=== PATIENT | male | born 1935 | race Caucasian/White ===

== ENCOUNTER 2016-04-21 10:35 | Emergency (ER) | payer MEDICARE, OTHER ==
[~2016-04-21 10:35] MED LIST: Adenosine 6 MG/2 ML SDV IVPUSH ONE
[2016-04-21] MEDS ORDERED: Diltiazem 25 MG/5 ML SDV ONE (10:42)
[2016-04-21] MEDS ORDERED: Adenosine 12 MG/4 ML SDV ONE (10:42)
[2016-04-21] MEDS ORDERED: Adenosine 12 MG/4 ML SDV IVPUSH ONE (10:45)
[2016-04-21] MEDS ORDERED: Diltiazem 25 MG/5 ML SDV IVPUSH ONE (10:45)
[2016-04-21] MEDS ORDERED: Sodium Chloride 0.9% 200 ML IV ONE (10:45)
[2016-04-21] MEDS ORDERED: Sodium Chloride 0.9% 10 ML Syringe FLUSH PRN (10:59)
[2016-04-21] MEDS ORDERED: Diltiazem 100 MG AdvVial ONE (11:00)
[2016-04-21] MEDS ORDERED: Diltiazem 100 MG in Sodium Chloride 0.9% 100 ML IV SCH (11:00)
[2016-04-21] MEDS ORDERED: Sodium Chloride 0.9% 100 ML ONE (11:01)
--- NOTE | 2016-04-21 11:11 | EDM.PDOC ---
ED HISTORY OF PRESENT ILLNESS - General Chief Complaint: Cardiovascular Problem Stated Complaint: CHEST PAIN/SOB Time Seen by Provider: 04/21/16 12:26 Source of Information: Reports: Patient, Family, RN History Limitations: Reports: No limitations - History of Present Illness INITIAL COMMENTS - FREE TEXT/NARRATIVE: Patient is a 80-year-old male with a history of coronary disease, KS, stent placement in 2014 unknown coronary culprit vessel. Additional hx: CKD, HTn, prostate CA, and CVA. He presents today complaining of palpitations and a fast heart rate. States it started this morning suddenly while walking down the stairs to get the paper. States he developed chest discomfort that radiated into his jaw with generalized malaise. States he took a nitro and asa with relief of symptoms. Denies any dizziness, lightheadedness, nausea/vomiting, or diaphoresis. States has shortness of breath with exertion. He has had chest pain in the past brought on by exertion relieved with rest. Denies ever taking nitro for the discomfort. Otherwise denies any changes to his medications, has not been recently sick, and has taken all his home a.m medications as prescribed this morning. He takes Metoprolol 12.5mg, plavix 75mg, protonix 40mg , tamsulosin 0.4mg, simvastatin 40 mg, ASA 81mg, and nitrostat 0.4mg. Timing/Duration: Reports: Constant Severity: mild Location, General: Reports: chest Quality: Reports: Other (palpitations only) Improves with: Reports: None Worsens with: Reports: None Context, General: Reports: Other (none stated) Associated Symptoms (General): Reports: shortness of breath. 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 (see below) (none stated) - Related Data Allergies/ADRs: Allergies Allergy/AdvReac Type Severity Reaction Status Date / Time No Known Allergies Allergy Verified 09/23/14 10:54 Past Medical History - Past Surgical History Other Cardiovascular Surgeries/Procedures: Stent Placement Social & Family History - Tobacco Use Smoking Status *Q: Former Smoker Years of Tobacco use: 32 - Recreational Drug Use Recreational Drug Use: No ED ROS GENERAL - Review of Systems Review Of Systems: See Below Constitutional: Reports: no symptoms Respiratory: Denies: shortness of breath, cough, sputum Cardiovascular: Reports: Dyspnea on exertion, Palpitations. Denies: Chest pain , Blood pressure problem, Edema, Lightheadedness, Orthopnea, Syncope GI/Abdominal: Reports: No symptoms Musculoskeletal: Reports: no symptoms Neurological: Reports: no symptoms ED EXAM, GENERAL - Physical Exam Exam: See Below Exam Limited By: No limitations General Appearance: alert, WD/WN, no apparent distress Ears: hearing grossly normal Nose: normal inspection Throat/Mouth: Normal inspection, Normal oropharynx, Normal voice, No airway compromise Head: atraumatic, normocephalic Neck: normal inspection, supple, non-tender, full range of motion Respiratory/Chest: no respiratory distress, lungs clear, normal breath sounds Cardiovascular: normal peripheral pulses, no edema, tachycardia. No: systolic murmur Peripheral Pulses: 2+: radial (R) GI/Abdominal: normal bowel sounds, soft, non tender Extremities: normal inspection, normal range of motion, non-tender, no pedal edema Neurological: alert, oriented, CN II-XII intact, normal cognition, no motor/ sensory deficits Psychiatric: normal affect, normal mood Skin Exam: Warm, Dry, Intact, Normal color Course - Vital Signs Last Recorded V/S: Last Vital Signs Temp 98.0 F 04/21/16 12:45 Pulse 71 04/21/16 12:45 Resp 18 04/21/16 12:45 BP 125/91 H 04/21/16 12:45 Pulse Ox 98 04/21/16 12:45 - Orders/Labs/Meds Orders: Active Orders 24 hr Category Date Time Status EKG 12 Lead [EKG Documentation Completion] [RC] STAT Care 04/21/16 10:47 Active EKG 12 Lead [EKG Documentation Completion] [RC] STAT Care 04/21/16 10:51 Active Oxygen Therapy, ED [RC] ASDIRECTED Care 04/21/16 10:59 Active Peripheral IV Care [RC] . DIRECTED Care 04/21/16 11:00 Active Peripheral IV Insertion Adult [OM.PC] Stat Oth 04/21/16 10:59 Ordered Labs: Laboratory Tests 04/21/16 04/21/16 04/21/16 Range/Units 10:46 10:46 10:46 WBC 7.91 (4.23-9.07) K/mm3 RBC 5.09 (4.63-6.08) M/mm3 Hgb 15.4 (13.7-17.5) gm/L Hct 45.8 (40.1-51.0) % MCV 90.0 (79.0-92.2) fl MCH 30.3 (25.7-32.2) pg MCHC 33.6 (32.2-35.5) g/dl RDW Std Deviation 42.1 (35.1-43.9) fL Plt Count 190 (163-337) K/mm3 MPV 9.4 (9.4-12.3) fl Neut % (Auto) 58.9 (34.0-67.9) % Lymph % (Auto) 30.0 (21.8-53.1) % [place] % (Auto) 8.2 (5.3-12.2) % Eos % (Auto) 2.0 (0.8-7.0) Baso % (Auto) 0.8 (0.1-1.2) % Neut # 4.66 (1.78-5.38) K/mm3 Lymph # 2.37 (1.32-3.57) K/mm3 [place] # 0.65 (0.30-0.82) K/mm3 Eos # 0.16 (0.04-0.54) K/mm3 Baso # 0.06 (0.01-0.08) K/mm3 PT 10.0 (8.0-13.0) SECONDS INR 0.92 APTT (22-36) SECONDS Sodium 141 (136-145) mEq/L Potassium 4.1 (3.5-5.1) mEq/L Chloride 103 (98-107) mEq/L Carbon Dioxide 23 (21-32) mEq/L Anion Gap 19.1 H (5-15) BUN 27 H (7-18) mg/dL Creatinine 1.9 H (0.7-1.3) mg/dL Est Cr Clr Drug Dosing TNP Estimated GFR (MDRD) 34 (>60) mL/min BUN/Creatinine Ratio 14.2 (14-18) Glucose 132 H (83-115) mg/dL Calcium 9.4 (8.5-10.1) mg/dL Total Bilirubin 0.6 (0.2-1.0) mg/dL AST 22 (15-37) U/L ALT 21 (16-63) U/L Alkaline Phosphatase 124 H (46-116) U/L Troponin I < 0.017 (0.00-0.056) ng/mL C-Reactive Protein < 0.2 (<1.0) mg/dL Total Protein 7.9 (6.4-8.2) g/dl Albumin 3.7 (3.4-5.0) g/dl Globulin 4.2 gm/dL Albumin/Globulin Ratio 0.9 L (1-2) TSH 3rd Generation 2.244 (0.358-3.74) uIU/mL 04/21/16 Range/Units 10:46 WBC (4.23-9.07) K/mm3 RBC (4.63-6.08) M/mm3 Hgb (13.7-17.5) gm/L Hct (40.1-51.0) % MCV (79.0-92.2) fl MCH (25.7-32.2) pg MCHC (32.2-35.5) g/dl RDW Std Deviation (35.1-43.9) fL Plt Count (163-337) K/mm3 MPV (9.4-12.3) fl Neut % (Auto) (34.0-67.9) % Lymph % (Auto) (21.8-53.1) % [place] % (Auto) (5.3-12.2) % Eos % (Auto) (0.8-7.0) Baso % (Auto) (0.1-1.2) % Neut # (1.78-5.38) K/mm3 Lymph # (1.32-3.57) K/mm3 [place] # (0.30-0.82) K/mm3 Eos # (0.04-0.54) K/mm3 Baso # (0.01-0.08) K/mm3 PT (8.0-13.0) SECONDS INR APTT 25 (22-36) SECONDS Sodium (136-145) mEq/L Potassium (3.5-5.1) mEq/L Chloride (98-107) mEq/L Carbon Dioxide (21-32) mEq/L Anion Gap (5-15) BUN (7-18) mg/dL Creatinine (0.7-1.3) mg/dL Est Cr Clr Drug Dosing Estimated GFR (MDRD) (>60) mL/min BUN/Creatinine Ratio (14-18) Glucose (83-115) mg/dL Calcium (8.5-10.1) mg/dL Total Bilirubin (0.2-1.0) mg/dL AST (15-37) U/L ALT (16-63) U/L Alkaline Phosphatase (46-116) U/L Troponin I (0.00-0.056) ng/mL C-Reactive Protein (<1.0) mg/dL Total Protein (6.4-8.2) g/dl Albumin (3.4-5.0) g/dl Globulin gm/dL Albumin/Globulin Ratio (1-2) TSH 3rd Generation (0.358-3.74) uIU/mL Meds: Medications Discontinued Medications Generic Name Dose Route Start Last Admin Trade Name Freq PRN Reason Stop Dose Admin Adenosine Confirm 04/21/16 10:41 04/21/16 11:26 Adenocard Administered 04/21/16 10:42 Not Given Dose 6 mg .ROUTE .STK-MED ONE Adenosine Confirm 04/21/16 10:42 04/21/16 11:26 Adenocard Administered 04/21/16 10:43 Not Given Dose 12 mg .ROUTE .STK-MED ONE Adenosine 6 mg 04/21/16 10:25 04/21/16 10:47 Adenocard IVPUSH 04/21/16 10:26 6 mg NOW ONE Administration Adenosine 12 mg 04/21/16 10:45 04/21/16 10:49 Adenocard IVPUSH 04/21/16 10:46 12 mg NOW ONE Administration Aspirin 243 mg 04/21/16 11:18 04/21/16 11:27 Aspirin PO 04/21/16 11:19 Not Given ONETIME ONE Diltiazem HCl Confirm 04/21/16 10:42 04/21/16 11:45 Diltiazem Administered 04/21/16 10:43 Not Given Dose 25 mg .ROUTE .STK-MED ONE Diltiazem HCl Confirm 04/21/16 11:00 04/21/16 11:28 Cardizem Administered 04/21/16 11:01 Not Given Dose 100 mg .ROUTE .STK-MED ONE Diltiazem HCl 10 mg 04/21/16 10:45 04/21/16 10:55 Diltiazem IVPUSH 04/21/16 10:46 10 mg ONETIME ONE Administration Sodium Chloride Confirm 04/21/16 11:01 04/21/16 11:42 Normal Saline Administered 04/21/16 11:02 Not Given Dose 100 mls @ as directed .ROUTE .STK-MED ONE Diltiazem HCl 100 mg/ Sodium 100 mls @ 10 mls/hr 04/21/16 11:00 04/21/16 11: 07 Chloride IV 10 mg/hr TITRATE JERRY 10 mls/hr Protocol Administration 10 MG/HR Sodium Chloride 200 mls @ 999 mls/hr 04/21/16 10:45 04/21/16 10:47 Normal Saline IV 04/21/16 10:57 999 mls/hr ONETIME ONE Administration Sodium Chloride 10 ml 04/21/16 10:59 04/21/16 11:53 Saline Flush FLUSH 10 ml ASDIRECTED PRN Administration Keep Vein Open - Re-Assessments/Exams Free Text/Narrative Re-Assessment/Exam: On initial evaluation in the ED patients heart rate was 189, regular, appear to be SVT with normotensive blood pressures. He had no discomfort at this time. He was moved to the trauma room to which 12 lead was obtained revealing a supraventricular tachycardia at a rate of [address] changes noted. Vagal maneuvers were attempted with no change. Patient was administered 6 mg of adenosine IV push at 1047 with no change to his heart rhythm. 12 mg adenosine was pushed at 1049 which converted the patient into a sinus rhythm at a rate 87 with normotensive blood pressure. At 1048 and EKG was obtained revealing a sinus rhythm at a rate of 92 with left anterior fascicular block with no acute ST changes noted. This was compared to previous EKG obtained 09/23/2014 to which left anterior fascicular block was present as well. At 1057 heart rate increased to 180 and a Cardizem bolus of 10 mg was administered with heart rate decreasing in the 70s. This appeared to be sinus. He was started on Cardizem drip 10 mg/hr. Initial labs and studies include CBC, chem 14, PT/INR, PTT, troponin, and chest x-ray one view. Have also ordered an additional troponin to be obtained 2 hours from previous draw. 04/21/16 11:12 04/21/16 11:15 vital signs 129/65, heart rate 65 sinus with a few PVCs. Concerned the patient may be having a KS with history of chest discomfort and onset of SVT. Will order aspirin 243mg since patient has taken a baby aspirin this morning. Per nursing staff patient had taken 4 baby ASA priorto arrival. This was discontinued. labs reviewed: CBC no concerning finding. CR 1.9, he has history of CKD. Troponin WNL. CXR reviewed: mass noted to the right upper lobe. This was found on previous CXR 09/23/[address] of the chest. Ordered CT of the chest without contrast. 1140 Patients vitals are stable. HR sinus. He has no complaints at this time. 04/21/16 12:[address] Orellana hatchery attendant vice president of instruction at [facility] and she agrees the patient should have further cardiac workup. Transfer to vice president of instruction hospitalist Dr. Downing and discussed patient with him. He has accepted patient. Patient will be transported via ambulance to [facility]. Ambulance has been called. 04/21/[address] of the chest impression: Mass within the right upper lung suspicious for neoplasm. CT biopsy recommended. There is a significant interval change from prior chest x-ray as noted above. 2 nodules at the right chest. These are less specific for etiology for followup would be needed to determine stability. Difficult to exclude early metastases at this time. Mild prominent lymph nodes within the mediastinum possibly metastatic. Incidental findings as described above. Chest x-ray and CT of the chest films were push to [facility]. Results of x-ray and CT of the chest were also faxed to [facility] as well. Departure - Departure Time of Disposition: 12:14 Disposition: DC/Tfer to Acute Hospital 02 Reason for Transfer *Q: Other (Cardiac rule out) Condition: good Clinical Impression: SVT (supraventricular tachycardia), Chest pain in adult Referrals: Sathish Yeager MD [Primary Care Provider] - Forms: ED Department Discharge - My Orders Last 24 Hours: My Active Orders 04/21/16 10:59 Oxygen Therapy, ED [] ASDIRECTED Peripheral IV Insertion Adult [OM.PC] Stat 04/21/16 11:00 Peripheral IV Care [RC] . DIRECTED - Assessment/Plan Last 24 Hours: My Active Orders 04/21/16 10:59 Oxygen Therapy, ED [RC] ASDIRECTED Peripheral IV Insertion Adult [OM.PC] Stat 04/21/16 11:00 Peripheral IV Care [RC] . DIRECTED
[2016-04-21] MEDS ORDERED: Aspirin 81 MG Tab.Chew PO ONE (11:18)
[2016-04-21] MEDS: Adenosine 6 MG/2 ML SDV ONE ×2 (11:23→11:26)
[2016-04-21 13:12] VITALS: BP 125/91
--- NOTE | 2016-04-21 13:29 | CT ---
Chest: Multiple axial sections through the chest were obtained. Intravenous contrast was not utilized. Comparison: Previous chest x-ray of 04/21/16 and chest x-ray of 09/23/14. Findings: Parenchymal mass noted within the right upper lung. This measures approximately 4.0 x 4.2 cm. This correlates to the parenchymal density within the upper right lung on recent study. This has significantly change from chest x-ray of 09/23/14 at which [address] chest CT was requested, was it performed as I have no record of CT study performed at this institution? Slightly lobulated nodule is noted within the left lung base measuring about 1.4 cm which is too small to see by chest x-ray. Second small nodule noted within the right middle lobe measuring about 2 mm. Lungs otherwise are clear without additional nodule being identified. Mediastinum shows mildly prominent lymph nodes. Largest lymph node within the pretracheal region is 2.1 cm. Several small lymph nodes are seen within the subcarinal region. Visualized upper abdominal structures has an unremarkable noncontrast CT appearance. Mild coronary artery calcification is seen. Bone window settings were reviewed which shows scattered degenerative change throughout the spine with disc space narrowing and scattered endplate osteophytes. Mild spondylolisthesis is seen within the lower cervical spine due to degenerative apophyseal change. Impression: 1. Mass within the right upper lung suspicious for neoplasm. CT biopsy recommended. This is a significant interval change from prior chest x-ray as noted above. 2. 2 nodules within the right chest. These are less specific for etiology but follow-up would be needed to determine stability. Difficult to exclude early metastatic disease at this time. 3. Mildly prominent lymph nodes within the mediastinum possibly metastatic. 4. Other incidental findings as described above. Diagnostic code #9
--- NOTE | 2016-04-21 13:29 | CR ---
Chest: Portable view of the chest was obtained. Comparison: Previous chest x-ray of 09/23/14. Findings: Parenchymal density noted within the right upper chest. This has a masslike appearance and correlates to what appears to be neoplastic abnormality on subsequent CT exam. This represents a significant interval change from previous chest x-ray. CT was recommended on prior report and was previous CT performed at a different institution as I have no record of this being performed at this institution? Lungs are otherwise clear. Nodules that were noted on subsequent chest CT are too small to be seen on current chest x-ray. Heart size is normal. Tortuous thoracic aorta is seen. Bony structures are grossly intact. Impression: 1. Right upper lobe parenchymal mass is a significant interval change from previous study. This has the appearance of neoplasm on subsequent chest CT. 2. 2 small nodules are noted on subsequent chest CT which are too small to see on chest x-ray. 3. Nothing acute is otherwise seen on portable chest x-ray. Diagnostic code #9
== END 2016-04-21 12:45 ==
LOC: JD.ED 10:35 → SUPCPDRO 10:35 → JD.ED 12:45
DX: I47.1 Supraventricular tachycardia (principal); R07.9 Chest pain, unspecified; I25.10 Atherosclerotic heart disease of native coronary artery without angina pectoris; Z95.5 Presence of coronary angioplasty implant and graft; I25.2 Old myocardial infarction; I12.9 Hypertensive chronic kidney disease with stage 1 through stage 4 chronic kidney disease, or unspecified chronic kidney disease; N18.9 Chronic kidney disease, unspecified; Z85.46 Personal history of malignant neoplasm of prostate; Z86.73 Personal history of transient ischemic attack (TIA), and cerebral infarction without residual deficits; Z79.899 Other long term (current) drug therapy; Z87.891 Personal history of nicotine dependence
CPT/HCPCS: 36415; 71010; 71250; 80053; 84443; 84484; 85025; 85610; 85730; 86140; 93005; 96360; 96365; 96366; 96375; 96376; 99285; A9270; J0153; J7030; J7040; J7050; 99284; J3490

== ENCOUNTER 2016-07-15 13:43 | Inpatient (IN) | payer MEDICARE, OTHER ==
[2016-07-15] MEDS ORDERED: Sodium Chloride 0.9% 10 ML Syringe FLUSH PRN (13:51)
[2016-07-15] MEDS ORDERED: Diltiazem 25 MG/5 ML SDV IVPUSH ONE (13:52)
[2016-07-15] MEDS ORDERED: Sodium Chloride 0.9% 1,000 ML IV ONE ×2 (13:56→14:56)
[2016-07-15] MEDS ORDERED: Diltiazem 125 MG in Sodium Chloride 0.9% 100 ML IV SCH (14:00)
[2016-07-15] MEDS ORDERED: Sodium Chloride 0.9% 1,000 ML IV SCH (14:00)
--- NOTE | 2016-07-15 14:15 | CT ---
Head CT Technique: Multiple axial sections through the brain were obtained. Intravenous contrast was not utilized. Comparison: No previous intracranial imaging is available. Findings: Ventricles along with basal cisterns and sulci over the convexities are moderately prominent. Very minimal diminished density is noted within the periventricular white matter compatible with small vessel ischemic demyelination change. No other abnormal parenchymal densities are seen. No evidence of intracranial hemorrhage. No midline shift or mass effect is seen. Mild atherosclerotic calcification is noted within the vertebral vessels and within the carotid siphon. Visualized sinuses are clear. No acute calvarial abnormality is seen. Impression: 1. Minimal senescent change as described above. 2. No acute intracranial abnormality is appreciated on noncontrast head CT study. Diagnostic code #2
--- NOTE | 2016-07-15 15:03 | EDM.PDOC ---
ED HPI GENERAL MEDICAL PROBLEM - General Chief Complaint: Neuro Symptoms/Deficits Stated Complaint: STROKE Time Seen by Provider: 07/15/16 13:51 Source of Information: Reports: Patient History Limitations: Reports: No Limitations - History of Present Illness INITIAL COMMENTS - FREE TEXT/NARRATIVE: The patient presents with a possible stroke. A stroke alert was called. He was last known well about 1300. He has a history of SVT, CT with stents, and he was recently diagnosed with cancer and he gets chemo and radiation. He had both last week. He felt good on Friday but 3 days ago he could not eat or drink. He had no apatite and he had nausea at times. Today he was lightheaded and dizzy. Any movement makes him feel like he wants to pass out. He feels like his heart is racing. He had SVT in April and he was diagnosed with cancer also. He has no chest pain but he is short of breath and he has some pain in his jaw. Onset: Gradual Duration: Day(s): Location: Reports: Other (Jaw) Quality: Reports: Pressure Severity: Moderate Improves with: Reports: None Worsens with: Reports: None Context: Reports: Activity Associated Symptoms: Reports: Nausea/Vomiting, Shortness of Breath. Denies: Chest Pain, Cough, Fever/Chills Neck Pain Score (Numeric/FACES): 5 - Related Data Allergies Allergy/AdvReac Type Severity Reaction Status Date / Time No Known Allergies Allergy Verified 07/15/16 14:12 Home Meds: Home Meds Aspirin 81 mg PO DAILY 05/31/16 [History] Clopidogrel [Plavix] 75 mg PO DAILY 05/31/16 [History] Codeine/Promethazine [Phenergan with Codeine] 05/31/16 [History] Diltiazem [Cardizem CD] 05/31/16 [History] Doxycycline [Vibramycin] 05/31/16 [History] Metoprolol Succinate 05/31/16 [History] Nitroglycerin [Nitrostat] 0.4 mg SL ASDIRECTED PRN 05/31/16 [History] Pantoprazole Sodium [Protonix] 40 mg PO 05/31/16 [History] Simvastatin [Zocor] 40 mg PO DAILY 05/31/16 [History] Tamsulosin [Flomax] 1 - 2 cap PO DAILY 05/31/16 [History] Past Medical History HEENT History: Reports: Cataract Cardiovascular History: Reports: CAD, High Cholesterol, CT, Stents Other Cardiovascular History: CT in 2015, arteriosclerotic heart disease Respiratory History: Reports: SOB, Other (See Below) Other Respiratory History: uppper lobe lung mass, bronchoscopy Gastrointestinal History: Reports: GERD Genitourinary History: Reports: Other (See Below) Other Genitourinary History: "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" NEGATIVE SPOTTER History: Reports: None Musculoskeletal History: Reports: None Neurological History: Reports: CVA Psychiatric History: Reports: None Endocrine/Metabolic History: Reports: None Hematologic History: Reports: None Immunologic History: Reports: None Oncologic (Cancer) History: Reports: Lung, Prostate Dermatologic History: Reports: None - Infectious Disease History Infectious Disease History: Reports: C-Difficile, Measles, Mumps - Past Surgical History HEENT Surgical History: Reports: Adenoidectomy, Cataract Surgery, Tonsillectomy Respiratory Surgical History: Reports: Other (See Below) Social & Family History - Tobacco Use Smoking Status *Q: Former Smoker Years of Tobacco use: 32 Used Tobacco, but Quit: Yes Month Tobacco Last Used: 15 yrs ago Second Hand Smoke Exposure: No - Caffeine Use Caffeine Use: Reports: None - Recreational Drug Use Recreational Drug Use: No ED ROS GENERAL - Review of Systems Review Of Systems: See Below Constitutional: Reports: No Symptoms HEENT: Reports: Other (Bilateral jaw pain) Respiratory: Reports: Shortness of Breath. Denies: Cough Cardiovascular: Reports: Palpitations. Denies: Chest Pain Endocrine: Reports: No Symptoms GI/Abdominal: Reports: Nausea. Denies: Abdominal Pain, Vomiting : Reports: No Symptoms Musculoskeletal: Reports: No Symptoms ED EXAM, NEURO - Physical Exam Exam: See Below Exam Limited By: No Limitations General Appearance: Alert, No Apparent Distress Ears: Normal External Exam Nose: Normal Inspection Throat/Mouth: Other (Dry mucus membranes) Head Exam: Atraumatic, Normocephalic Neck: Normal Inspection Respiratory/Chest: No Respiratory Distress, Lungs Clear, Normal Breath Sounds Cardiovascular: No Edema, Tachycardia, Irregularly Irregular GI/Abdominal: Soft, Non-Tender, No Organomegaly, No Mass Neurological: Alert, No Motor/Sensory Deficits, Oriented x 3 EKG INTERPRETATION EKG Date: 07/15/16 Time: 13:47 Rhythm: a-fib Rate (beats/min): 135 [place]: LAD-left axis deviation QRS: normal ST-T: normal QT: normal EKG Interpretation Comments: A-fib with RVR Course - Vital Signs Last Recorded V/S: Last Vital Signs Temp 97.4 F 07/15/16 13:54 Pulse 95 07/15/16 15:00 Resp 18 07/15/16 15:00 BP 106/70 07/15/16 15:00 Pulse Ox 96 07/15/16 15:00 - Orders/Labs/Meds Orders: Active Orders 24 hr Category Date Time Status Cardiac Monitoring [RC] . DIRECTED Care 07/15/16 13:51 Active EKG 12 Lead [EKG Documentation Completion] [RC] STAT Care 07/15/16 15:23 Active EKG Documentation Completion [RC] STAT Care 07/15/16 13:52 Active Oxygen Therapy [RC] PRN Care 07/15/16 13:51 Active Peripheral IV Care [RC] . DIRECTED Care 07/15/16 13:52 Active Chest 1V Frontal [CR] Stat Exams 07/15/16 13:52 Taken Diltiazem 125 mg Med 07/15/16 14:00 Active Sodium Chloride 0.9% [Normal Saline] 100 ml IV TITRATE Sodium Chloride 0.9% [Normal Saline] 1,000 ml Med 07/15/16 14:00 Active IV ASDIRECTED Sodium Chloride 0.9% [Normal Saline] 1,000 ml Med 07/15/16 14:56 Active IV ONETIME Sodium Chloride 0.9% [Saline Flush] Med 07/15/16 13:51 Active 10 ml FLUSH ASDIRECTED PRN Peripheral IV Insertion Adult [OM.PC] Stat Oth 07/15/16 13:51 Ordered Medication Orders Diltiazem HCl 125 mg/ Sodium (Chloride) 125 mls @ 10 mls/hr IV TITRATE JERRY; 10 MG/HR PRN Reason: Protocol Sodium Chloride (Normal Saline) 1,000 mls @ 125 mls/hr IV ASDIRECTED JERRY Sodium Chloride (Normal Saline) 1,000 mls @ 1,000 mls/hr IV ONETIME ONE Stop: 07/15/16 15:55 Sodium Chloride (Saline Flush) 10 ml FLUSH ASDIRECTED PRN PRN Reason: Keep Vein Open Last Admin: 07/15/16 14:23 Dose: 10 ml Labs: Laboratory Tests 07/15/16 07/15/16 07/15/16 Range/Units 13:53 13:53 13:53 WBC 3.16 L (4.23-9.07) K/mm3 RBC 4.03 L (4.63-6.08) M/mm3 Hgb 12.2 L (13.7-17.5) gm/L Hct 36.2 L (40.1-51.0) % MCV 89.8 (79.0-92.2) fl MCH 30.3 (25.7-32.2) pg MCHC 33.7 (32.2-35.5) g/dl RDW Std Deviation 47.2 H (35.1-43.9) fL Plt Count 101 L (163-337) K/mm3 MPV 9.4 (9.4-12.3) fl Neut % (Auto) 70.7 H (34.0-67.9) % Lymph % (Auto) 19.6 L (21.8-53.1) % [place] % (Auto) 7.6 (5.3-12.2) % Eos % (Auto) 0.6 L (0.8-7.0) Baso % (Auto) 0.6 (0.1-1.2) % Neut # (Auto) 2.23 (1.78-5.38) K/mm3 Lymph # (Auto) 0.62 L (1.32-3.57) K/mm3 [place] # (Auto) 0.24 L (0.30-0.82) K/mm3 Eos # (Auto) 0.02 L (0.04-0.54) K/mm3 Baso # (Auto) 0.02 (0.01-0.08) K/mm3 PT 11.0 (8.0-13.0) SECONDS INR 1.01 Sodium 137 (136-145) mEq/L Potassium 3.3 L (3.5-5.1) mEq/L Chloride 102 (98-107) mEq/L Carbon Dioxide 22 (21-32) mEq/L Anion Gap 16.3 H (5-15) BUN 41 H (7-18) mg/dL Creatinine 1.8 H (0.7-1.3) mg/dL Est Cr Clr Drug Dosing 31.67 mL/min Estimated GFR (MDRD) 36 (>60) mL/min BUN/Creatinine Ratio 22.8 H (14-18) Glucose 110 (83-115) mg/dL Calcium 8.3 L (8.5-10.1) mg/dL Total Bilirubin 0.9 (0.2-1.0) mg/dL AST 27 (15-37) U/L ALT 33 (16-63) U/L Alkaline Phosphatase 77 (46-116) U/L Troponin I 0.029 (0.00-0.056) ng/mL Total Protein 6.3 L (6.4-8.2) g/dl Albumin 2.8 L (3.4-5.0) g/dl Globulin 3.5 gm/dL Albumin/Globulin Ratio 0.8 L (1-2) Meds: Medications Generic Name Dose Route Start Last Admin Trade Name Jimq PRN Reason Stop Dose Admin Diltiazem HCl 125 mg/ Sodium 125 mls @ 10 mls/hr 07/15/16 14:00 Chloride IV TITRATE JERRY Protocol 10 MG/HR Sodium Chloride 1,000 mls @ 125 mls/hr 07/15/16 14:00 Normal Saline IV ASDIRECTED JERRY Sodium Chloride 1,000 mls @ 1,000 mls/hr 07/15/16 14:56 Normal Saline IV 07/15/16 15:55 ONETIME ONE Sodium Chloride 10 ml 07/15/16 13:51 07/15/16 14:23 Saline Flush FLUSH 10 ml ASDIRECTED PRN Administration Keep Vein Open Discontinued Medications Generic Name Dose Route Start Last Admin Trade Name Freq PRN Reason Stop Dose Admin Diltiazem HCl 10 mg 07/15/16 13:52 07/15/16 14:56 Diltiazem IVPUSH 07/15/16 13:53 Not Given ONETIME ONE Sodium Chloride 1,000 mls @ 1,000 mls/hr 07/15/16 13:56 07/15/16 14:23 Normal Saline IV 07/15/16 14:55 1,000 mls/hr ONETIME ONE Administration - Re-Assessments/Exams Free Text/Narrative Re-Assessment/Exam: 07/15/16 15:04 I ordered an IV NS 1L bolus, EKG, CXR, labs, cardizem bolus 10mg IV and cardizem drip at 10mg/hr. His EKG shows A-fib with RVR at 135. His CXR shows a mass in the right upper chest. His WBC is low at 3.16. His Hgb was a little low at 12.2. His K was low at 3.3. Platelets were low at 101. His anion gap was 16.3. His creatinine was elevated at 1.8. His troponin was negative. His heart rate will go up and his BP will go down in the 80s at times. The cardizem was held until he gets a bolus. He will convert to what seems to be a NSR at times and then he bursts back up. 07/15/16 15:[address] Orona and she agreed to the admission. I talked to the patient about his wishes if he wanted to be DNR/DNI. He wanted to be DNR/DNI. Departure - Departure Time of Disposition: 15:40 Disposition: Admitted As Inpatient 67 Condition: fair Clinical Impression: Dehydration Atrial fibrillation Qualifiers: Atrial fibrillation type: paroxysmal Qualified Code(s): I48.0 - Paroxysmal atrial fibrillation Difficulty swallowing Qualifiers: Dysphagia type: unspecified Qualified Code(s): R13.10 - Dysphagia, unspecified - Discharge Information Forms: ED Department Discharge - My Orders Last 24 Hours: My Active Orders 07/15/16 13:51 Cardiac Monitoring [RC] . DIRECTED Oxygen Therapy [RC] PRN Sodium Chloride 0.9% [Saline Flush] 10 ml FLUSH ASDIRECTED PRN Peripheral IV Insertion Adult [OM.PC] Stat 07/15/16 13:52 EKG Documentation Completion [RC] STAT Peripheral IV Care [RC] . DIRECTED Chest 1V Frontal [CR] Stat 07/15/16 14:00 Diltiazem 125 mg Sodium Chloride 0.9% [Normal Saline] 100 ml IV TITRATE Sodium Chloride 0.9% [Normal Saline] 1,000 ml IV ASDIRECTED 07/15/16 14:56 Sodium Chloride 0.9% [Normal Saline] 1,000 ml IV ONETIME 07/15/16 15:23 EKG 12 Lead [EKG Documentation Completion] [RC] STAT - Assessment/Plan Last 24 Hours: My Active Orders 07/15/16 13:51 Cardiac Monitoring [RC] . DIRECTED Oxygen Therapy [RC] PRN Sodium Chloride 0.9% [Saline Flush] 10 ml FLUSH ASDIRECTED PRN Peripheral IV Insertion Adult [OM.PC] Stat 07/15/16 13:52 EKG Documentation Completion [RC] STAT Peripheral IV Care [RC] . DIRECTED Chest 1V Frontal [CR] Stat 07/15/16 14:00 Diltiazem 125 mg Sodium Chloride 0.9% [Normal Saline] 100 ml IV TITRATE Sodium Chloride 0.9% [Normal Saline] 1,000 ml IV ASDIRECTED 07/15/16 14:56 Sodium Chloride 0.9% [Normal Saline] 1,000 ml IV ONETIME 07/15/16 15:23 EKG 12 Lead [EKG Documentation Completion] [RC] STAT
[2016-07-15] MEDS ORDERED: Nitroglycerin 0.4 MG Tab.SL SL PRN (17:28)
[2016-07-15] MEDS ORDERED: Apixaban 2.5 MG Tab PO ONE (17:32)
--- NOTE | 2016-07-15 17:50 | PCM.HP ---
H&P History of Present Illness - General Date of Service: 07/15/16 Admit Problem/Dx: Admission Diagnosis/Problem Admission Diagnosis/Problem Atrial fibrillation Source of Information: Patient, Family, Provider History Limitations: Reports: No Limitations - History of Present Illness Initial Comments - Free Text/Narative: 81 year old male with PMH of CVA, MA/CAD presented with A Fib with RVR. His chief complaint was a racing heart associated with jaw pain and SOB. He is s/p CTX/RTX for a lung mass. CTX is scheduled to resume on 07/16/16 in [place]. He was not started immediately on a Cardizem gtt because of hypotension. Aggressive fluid resuscitation was provided, and a drip was started before transfer to the ICU. He has had a recent episode reportedly of PSVT. Currently he is on a BB as well as Calcium channel aaron. His cardiac needs are managed in [place] by a healthcare boat cleaning supervisor. Previously he was seen by a heel cover splitter who has moved out of [facility]. Onset of Symptoms: Reports: Sudden Symptom Onset Date: 07/15/16 Duration of Symptoms: Reports: Hour(s):, Getting Worse Location: Reports: Neck, Chest Quality: Reports: Same as Previous Episode Improves with: Reports: Medication Worsens with: Reports: None Associated Symptoms: Reports: Shortness of Breath, Weakness Neck Pain Score (Numeric/FACES): 5 - Related Data Allergies/Adverse Reactions: Allergies Allergy/AdvReac Type Severity Reaction Status Date / Time No Known Allergies Allergy Verified 07/15/16 14:12 Home Medications: Home Meds Aspirin 81 mg PO BEDTIME 05/31/16 [History] Clopidogrel [Plavix] 75 mg PO DAILY 05/31/16 [History] Diltiazem [Cardizem CD] 120 mg PO DAILY 05/31/16 [History] Metoprolol Succinate 12.5 mg PO DAILY 05/31/16 [History] Nitroglycerin [Nitrostat] 0.4 mg SL ASDIRECTED PRN 05/31/16 [History] Pantoprazole Sodium [Protonix] 40 mg PO DAILY 05/31/16 [History] Simvastatin [Zocor] 40 mg PO BEDTIME 05/31/16 [History] Tamsulosin [Flomax] 1 cap PO BEDTIME 05/31/16 [History] Past Medical History HEENT History: Reports: Cataract Cardiovascular History: Reports: CAD, High Cholesterol, MA, Stents Other Cardiovascular History: MA in 2015, arteriosclerotic heart disease Respiratory History: Reports: SOB, Other (See Below) Other Respiratory History: Right upper lobe lung mass, bronchoscopy Gastrointestinal History: Reports: GERD Genitourinary History: Reports: Other (See Below) Other Genitourinary History: "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" 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 Musculoskeletal History: Reports: None Neurological 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 Psychiatric History: Reports: None Endocrine/Metabolic History: Reports: None Hematologic History: Reports: None Immunologic History: Reports: None Oncologic (Cancer) History: Reports: Lung, Prostate Dermatologic History: Reports: None - Infectious Disease History Infectious Disease History: Reports: C-Difficile, Measles, Mumps - Past Surgical History HEENT Surgical History: Reports: Adenoidectomy, Cataract Surgery, Tonsillectomy Social & Family History - Family History Family Medical History: Noncontributory - Tobacco Use Smoking Status *Q: Former Smoker Years of Tobacco use: 32 Used Tobacco, but Quit: Yes Month Tobacco Last Used: 15y ago Second Hand Smoke Exposure: No - Caffeine Use Caffeine Use: Reports: None - Recreational Drug Use Recreational Drug Use: No H&P Review of Systems - Review of Systems: Review Of Systems: See Below General: Reports: Weakness, Fatigue HEENT: Reports: Sore Throat (fullness in throat) Pulmonary: Reports: Shortness of Breath Cardiovascular: Reports: Palpitations, Lightheadedness, Other (jaw pain) Gastrointestinal: Reports: Nausea, Vomiting Genitourinary: Reports: No Symptoms Musculoskeletal: Reports: No Symptoms Skin: Reports: No Symptoms Psychiatric: Reports: No Symptoms Neurological: Reports: No Symptoms Hematologic/Lymphatic: Reports: No Symptoms Immunologic: Reports: No Symptoms Exam - Exam Exam: See Below - Vital Signs Vital Signs: Last Vital Signs Temp 36.3 C 07/15/16 13:54 Pulse 86 07/15/16 16:30 Resp 18 07/15/16 16:30 BP 97/66 07/15/16 16:30 Pulse Ox 96 07/15/16 16:30 Weight: 70.534 kg - Exam Quality Assessment: Supplemental Oxygen General: Alert, Oriented, Cooperative HEENT: EACs Clear, EOMI, Mucosa Moist & [place], Nares Patent, Normal Nasal Septum , Pupils Equal, Pupils Reactive, PERRLA Neck: Supple, Trachea Midline Lungs: Normal Respiratory Effort, Decreased Breath Sounds, Rhonchi Cardiovascular: Regular Rate, Irregular Rhythm Abdomen: Normal Bowel Sounds, Soft (Male) Exam: Deferred Rectal (Males) Exam: Deferred Back Exam: Normal Inspection Extremities: Normal Inspection Skin: Warm Neurological: Cranial Nerves Intact, Normal Gait, Normal Speech Neuro Extensive - Mental Status: Alert, Oriented x3, Normal Mood/Affect, Normal Cognition, Memory Intact Neuro Extensive - Motor, Sensory, Reflexes: CN II-XII Intact Psychiatric: Alert, Normal Affect, Normal Mood - Patient Data Result Diagrams: 07/15/16 13:53 07/15/16 13:53 *Q Meaningful Use (ADM) - VTE *Q VTE Criteria *Q: - Stroke *Q Stroke Criteria *Q: - AMI *Q AMI Criteria *Q: - Problem List (1) CAD (coronary artery disease) SNOMED Code(s): 27602689 ICD Code: I25.10 - ATHSCL HEART DISEASE OF [place] CORONARY ARTERY W/O ANG PCTRS Status: Acute Current Visit: Yes (2) Lung mass SNOMED Code(s): 402983569 ICD Code: R91.8 - OTHER NONSPECIFIC ABNORMAL FINDING OF LUNG FIELD Status: Acute Current Visit: Yes (3) GERD (gastroesophageal reflux disease) SNOMED Code(s): 008979332 ICD Code: K21.9 - GASTRO-ESOPHAGEAL REFLUX DISEASE WITHOUT ESOPHAGITIS Status: Acute Current Visit: Yes (4) Atrial fibrillation SNOMED Code(s): 61191707 ICD Code: I48.91 - UNSPECIFIED ATRIAL FIBRILLATION Status: Acute Current Visit: Yes Qualifiers: Atrial fibrillation type: paroxysmal Qualified Code(s): I48.0 - Paroxysmal atrial fibrillation (5) Dehydration SNOMED Code(s): 04011710 ICD Code: E86.0 - DEHYDRATION Status: Acute Current Visit: Yes (6) Difficulty swallowing SNOMED Code(s): 19488353, 328043600 ICD Code: R13.10 - DYSPHAGIA, UNSPECIFIED Status: Acute Current Visit: Yes Qualifiers: Dysphagia type: unspecified Qualified Code(s): R13.10 - Dysphagia, unspecified Problem List Initiated/Reviewed/Updated: Yes Orders Last 24hrs: Active Orders 24 hr Category Date Time Status Antiembolic Devices [RC] PER UNIT ROUTINE Care 07/15/16 17:38 Ordered Consult to Occupational Therapy [OT Evaluation and Cons 07/16/16 17:35 Ordered Treatment] [CONS] Routine Consult to Light Equipment Operator [CONS] Routine Cons 07/16/16 10:00 Ordered Consult to Speech Language Pathology [BUSINESS OFFICE DIRECTOR Evaluation Cons 07/16/16 09:00 Active and Treatment] [CONS] Routine PT Evaluation and Treatment [CONS] Routine Cons 07/16/16 10:00 Ordered CXR [Chest 2V] [CR] Routine Exams 07/16/16 08:00 Ordered Swallowing Function w Video [CR] Routine Exams 07/16/16 13:00 Ordered BASIC METABOLIC PANEL,BMP [CHEM] DAILY Lab 07/16/16 05:00 Ordered BASIC METABOLIC PANEL,BMP [CHEM] DAILY Lab 07/17/16 05:00 Ordered BASIC METABOLIC PANEL,BMP [CHEM] DAILY Lab 07/18/16 05:00 Ordered CBC WITH AUTO DIFF [HEME] DAILY Lab 07/16/16 05:00 Ordered CBC WITH AUTO DIFF [HEME] DAILY Lab 07/17/16 05:00 Ordered CBC WITH AUTO DIFF [HEME] DAILY Lab 07/18/16 05:00 Ordered MAGNESIUM [CHEM] DAILY Lab 07/16/16 05:00 Ordered MAGNESIUM [CHEM] DAILY Lab 07/17/16 05:00 Ordered MAGNESIUM [CHEM] DAILY Lab 07/18/16 05:00 Ordered TSH [CHEM] Routine Lab 07/16/16 05:00 Ordered Apixaban [Eliquis] Med 07/15/16 17:32 Once 2.5 mg PO ONETIME ONE Aspirin Med 07/15/16 21:00 Ordered 81 mg PO BEDTIME Clopidogrel [Plavix] Med 07/16/16 09:00 Ordered 75 mg PO DAILY Diltiazem [Cardizem CD] Med 07/16/16 09:00 Ordered 120 mg PO DAILY Lactated Ringers @ 100 MLS/HR(1000ml Bag) Med 07/15/16 18:00 Ordered Lactated Ringers [Ringers, Lactated] 1,000 ml IV ASDIRECTED Metoprolol Succinate [Toprol XL] Med 07/15/16 21:00 Ordered 12.5 mg PO BID Nitroglycerin [Nitrostat] Med 07/15/16 17:28 Ordered 0.4 mg SL ASDIRECTED PRN Pantoprazole [ProTONIX] Med 07/16/16 09:00 Ordered 40 mg PO DAILY Simvastatin [Zocor] Med 07/15/16 21:00 Ordered 40 mg PO BEDTIME Tamsulosin [Flomax] Med 07/15/16 21:00 Ordered DOSE mg PO BEDTIME methylPREDNISolone Sod Succ [Solu-MEDROL] Med 07/15/16 17:45 Ordered 40 mg IVPUSH Q12H ADRIENNE Hose [Antiembolic Hose] [OM.PC] Routine Oth 07/15/16 17:38 Ordered Code Status [Resuscitation Status] Routine Resus Stat 07/15/16 17:32 Ordered Medication Orders Apixaban (Eliquis) 2.5 mg PO ONETIME ONE Stop: 07/15/16 17:33 Aspirin (Aspirin) 81 mg PO BEDTIME JERRY Clopidogrel Bisulfate (Plavix) 75 mg PO DAILY JERRY Diltiazem HCl (Cardizem Cd) 120 mg PO DAILY JERRY Diltiazem HCl 125 mg/ Sodium (Chloride) 125 mls @ 10 mls/hr IV TITRATE JERRY; 10 MG/HR PRN Reason: Protocol Sodium Chloride (Normal Saline) 1,000 mls @ 125 mls/hr IV ASDIRECTED JERRY Lactated Ringer's (Ringers, Lactated) 1,000 mls @ 100 mls/hr IV ASDIRECTED JERRY Methylprednisolone Sodium Succinate (Solu-Medrol) 40 mg IVPUSH Q12H JERRY Metoprolol Succinate (Toprol Xl) 12.5 mg PO BID JERRY Nitroglycerin (Nitrostat) 0.4 mg SL ASDIRECTED PRN PRN Reason: Chest Pain Pantoprazole Sodium (Protonix) 40 mg PO DAILY JERRY Simvastatin (Zocor) 40 mg PO BEDTIME JERRY Sodium Chloride (Saline Flush) 10 ml FLUSH ASDIRECTED PRN PRN Reason: Keep Vein Open Last Admin: 07/15/16 14:23 Dose: 10 ml Tamsulosin HCl (Flomax) mg PO BEDTIME [facility] Assessment/Plan Comment:: Impression: A Fib with RVR, history of PSVT TSH, unknown Lung Mass s/p RTX/CTX, 4-5 days 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 Check cardiac enzymes/ECG Antiemetic Pain meds Repeat CXR, 2 view Cardizem gtt Home meds SW/PT/OT/SP Query Swallow Video Home Health Consult DC , scheduled to resume CTX on 07/16/16
[2016-07-15] MEDS ORDERED: Lactated Ringers 1,000 ML IV SCH (18:00)
[2016-07-15] MEDS ORDERED: Apixaban 5 MG Tab PO ONE (18:30)
[2016-07-15] MEDS: methylPREDNISolone Sodium Succinate 40 MG/1 ML SDV IVPUSH SCH (18:37)
[2016-07-15] MEDS ORDERED: Diphenhydramine/Lidocaine/MagAl/Simethicone 119 ML Bottle PO ONE (18:43)
--- NOTE | 2016-07-15 19:08 | CR ---
Chest: Portable view of the chest was obtained. Comparison: Previous chest x-ray of 04/21/16. Right upper lobe mass is seen which has slightly decreased in size from previous chest x-ray. Lungs otherwise are clear. Heart size is normal. Tortuous thoracic aorta is seen. Slight widening of the superior mediastinum is seen which correlates to slightly enlarged lymph nodes on prior chest CTof 04/21/16. Bony structures are grossly intact. Lobulated right hemidiaphragm is seen which is incidental. Left-sided infusion port is seen. Impression: 1. Decrease in size of previously noted right upper lobe mass. 2. Other incidental findings as described above. Diagnostic code #3
[2016-07-15] MEDS: Temazepam 7.5 MG Cap PO PRN (20:27)
[2016-07-15] MEDS: Tamsulosin 0.4 MG Cap.ER PO SCH (20:28)
[2016-07-15] MEDS: Aspirin 81 MG Tab.Chew PO SCH (20:29)
[2016-07-15] MEDS: Simvastatin 40 MG Tab PO SCH (20:30)
[2016-07-15] MEDS: Metoprolol Succinate 25 MG Tab.ER PO SCH (20:30)
[2016-07-15] MEDS ORDERED: Potassium Chloride 10% 20 MEQ/15 ML Soln 30 ML UD Cup PO SCH (21:00)
[2016-07-16] MEDS: methylPREDNISolone Sodium Succinate 40 MG/1 ML SDV IVPUSH SCH ×2 (05:47→18:09)
[2016-07-16] MEDS ORDERED: Potassium Chloride 20 MEQ Tab.ER PO ONE (06:00)
[2016-07-16] MEDS ORDERED: Pantoprazole 40 MG Tab.CR PO SCH (06:00)
[2016-07-16] MEDS ORDERED: Metoprolol Succinate 25 MG Tab.ER PO SCH (09:00)
[2016-07-16] MEDS: Metoprolol Succinate 25 MG Tab.ER PO SCH ×2 (09:42→20:27)
[2016-07-16] MEDS: Diltiazem 120 MG Cap.CD PO SCH (09:43)
[2016-07-16] MEDS: Clopidogrel 75 MG Tab PO SCH (09:43)
[2016-07-16] MEDS: Pantoprazole 40 MG Tab.CR PO SCH (09:43)
--- NOTE | 2016-07-16 10:51 | CR ---
Chest: Two views of the chest were obtained. Comparison: Previous chest x-ray of 07/15/16. Parenchymal density within the right upper chest. Uncertain if this is slightly improved or stable from prior chest x-ray but has certainly not worsened. Lungs otherwise are clear. Infusion catheter is seen entering from the left side. Heart size is normal. Tortuous thoracic aorta is seen. Old healed right-sided rib fracture is noted. Impression: 1. Parenchymal density within the right upper chest either slightly improved or stable from prior chest x-ray. 2. Other incidental findings as described above. Diagnostic code #3
--- NOTE | 2016-07-16 13:01 | PCM.DCSUM1 ---
Discharge Summary - Hospital Course Free Text/Narrative:: 81 year old male with PAF had frequent bouts of RVR that required an medication adjustment. He was changed form the succinate to the tartrate Metoprolol. DC med is Lopressor 25 mg q 8H, may take an additional table to prevent RVR. Should continue to take Cardizem CD 120 mg daily. Did not appear to be on an NOAC prior to admission. Was started on Eliquis 2.5 mg BID. Required a brief course of Cardizem drip during his stay. Had a VQ scan that was indeterminate, decided not to pursue possible PE with current treatment with Eliquis initiated. Will be DC today, 07/18/16. Has a cardiology appt of 07/22/16 and will resume CTX/RTX next week. Is to stop in an schedule care for lung mass while in [place]. Primary DX PAF Lung Cancer CAD, s/p PCI Condition Stable Activity As tolerated Diet Heart healthy Appts Card 07/22/16 Oncology, TBA Rad-onc, TBA Meds New Metoprolol tartrate 25 mg Q 8H or as needed. Eliquis 2.5 mg BID - Discharge Data Discharge Date: 07/16/16 Discharge Disposition: Home, Self-Care 01 Condition: Good - Discharge Diagnosis/Problem(s) (1) CAD (coronary artery disease) SNOMED Code(s): 63923963 ICD Code: I25.10 - ATHSCL HEART DISEASE OF [place] CORONARY ARTERY W/O ANG PCTRS Status: Acute Current Visit: Yes (2) Lung mass SNOMED Code(s): 338329628 ICD Code: R91.8 - OTHER NONSPECIFIC ABNORMAL FINDING OF LUNG FIELD Status: Acute Current Visit: Yes (3) GERD (gastroesophageal reflux disease) SNOMED Code(s): 314885323 ICD Code: K21.9 - GASTRO-ESOPHAGEAL REFLUX DISEASE WITHOUT ESOPHAGITIS Status: Acute Current Visit: Yes (4) Atrial fibrillation SNOMED Code(s): 44311639 ICD Code: I48.91 - UNSPECIFIED ATRIAL FIBRILLATION Status: Acute Current Visit: Yes Qualifiers: Atrial fibrillation type: paroxysmal Qualified Code(s): I48.0 - Paroxysmal atrial fibrillation (5) Dehydration SNOMED Code(s): 86285805 ICD Code: E86.0 - DEHYDRATION Status: Acute Current Visit: Yes (6) Difficulty swallowing SNOMED Code(s): 02055544, 988391500 ICD Code: R13.10 - DYSPHAGIA, UNSPECIFIED Status: Acute Current Visit: Yes Qualifiers: Dysphagia type: unspecified Qualified Code(s): R13.10 - Dysphagia, unspecified - Patient Summary/Data Consults: Consultations 07/16/16 09:00 Consult to Speech Language Pathology [FACSIMILE OPERATOR Evaluation and Treatment] [CONS] Routine 07/16/16 10:00 Consult to Miniature Set Builder [CONS] Routine PT Evaluation and Treatment [CONS] Routine 07/16/16 17:35 Consult to Occupational Therapy [OT Evaluation and Treatment] [CONS] Routine - Discharge Plan Prescriptions/Med Rec: Metoprolol Tartrate [Lopressor] 25 mg PO Q8HR #90 tablet Apixaban [Eliquis] 2.5 mg PO BID #60 tablet Prednisone [IJD: Prednisone] 10 mg PO DAILY #30 tab Home Medications: Home Meds Aspirin 81 mg PO BEDTIME 05/31/16 [History] Clopidogrel [Plavix] 75 mg PO DAILY 05/31/16 [History] Diltiazem [Cardizem CD] 120 mg PO DAILY 05/31/16 [History] Nitroglycerin [Nitrostat] 0.4 mg SL ASDIRECTED PRN 05/31/16 [History] Pantoprazole Sodium [Protonix] 40 mg PO DAILY 05/31/16 [History] Simvastatin [Zocor] 40 mg PO BEDTIME 05/31/16 [History] Tamsulosin [Flomax] 1 cap PO BEDTIME 05/31/16 [History] Prednisone [IJD: Prednisone] 10 mg PO DAILY #30 tab 07/16/16 [Rx] Apixaban [Eliquis] 2.5 mg PO BID #60 tablet 07/18/16 [Rx] Metoprolol Tartrate [Lopressor] 25 mg PO Q8HR #90 tablet 07/18/16 [Rx] Patient Handouts: Coronary Artery Disease, Male, Apixaban oral tablets, Atrial Fibrillation, [id number] Forms: ED Department Discharge Referrals: Juliette Reyes NP [Ordering Only Provider] - 07/22/16 1:40 pm (This appt. is in [place]) Sathish Yeager MD [Primary Care Provider] - - Patient Data Vitals - Most Recent: Last Vital Signs Temp 36.4 C 07/16/16 08:00 Pulse 94 07/16/16 09:43 Resp 17 07/16/16 08:00 BP 118/77 07/16/16 09:43 Pulse Ox 97 07/16/16 08:00 Weight - Most Recent: 70.806 kg I&O - Last 24 hours: Intake & Output 07/15/16 07/16/16 07/16/16 22:59 06:59 14:59 Intake Total 1000 1030 270 Output Total 400 Balance 1000 630 270 Lab Results - Last 24 hrs: Laboratory Results - last 24 hr 07/16/16 07/16/16 07/16/16 Range/Units 01:17 05:20 05:20 WBC 2.31 L* (4.23-9.07) K/mm3 RBC 3.23 L (4.63-6.08) M/mm3 Hgb 9.9 L (13.7-17.5) gm/L Hct 29.0 L (40.1-51.0) % MCV 89.8 (79.0-92.2) fl MCH 30.7 (25.7-32.2) pg MCHC 34.1 (32.2-35.5) g/dl RDW Std Deviation 46.3 H (35.1-43.9) fL Plt Count 90 L (163-337) K/mm3 MPV 9.2 L (9.4-12.3) fl Neut % (Auto) 78.7 H (34.0-67.9) % Lymph % (Auto) 15.6 L (21.8-53.1) % [place] % (Auto) 4.8 L (5.3-12.2) % Eos % (Auto) 0 L (0.8-7.0) Baso % (Auto) 0.0 L (0.1-1.2) % Neut # (Auto) 1.82 (1.78-5.38) K/mm3 Lymph # (Auto) 0.36 L (1.32-3.57) K/mm3 [place] # (Auto) 0.11 L (0.30-0.82) K/mm3 Eos # (Auto) 0.00 L (0.04-0.54) K/mm3 Baso # (Auto) 0.00 L (0.01-0.08) K/mm3 Manual Slide Review Abnormal smear Sodium 139 (136-145) mEq/L Potassium 4.2 (3.5-5.1) mEq/L Chloride 109 H (98-107) mEq/L Carbon Dioxide 20 L (21-32) mEq/L Anion Gap 14.2 (5-15) BUN 38 H (7-18) mg/dL Creatinine 1.5 H (0.7-1.3) mg/dL Est Cr Clr Drug Dosing 38.00 mL/min Estimated GFR (MDRD) 45 (>60) mL/min BUN/Creatinine Ratio 25.3 H (14-18) Glucose 159 H (83-115) mg/dL Calcium 7.7 L (8.5-10.1) mg/dL Magnesium 1.9 (1.8-2.4) mg/dl Troponin I 0.019 (0.00-0.056) ng/mL B-Natriuretic Peptide (0-100) pg/mL TSH 3rd Generation 0.241 L (0.358-3.74) uIU/mL Urine Color Yellow (Yellow) Urine Appearance Clear (Clear) Urine pH 6.5 (5.0-8.0) Ur Specific [place] 1.020 (1.005-1.030) Urine Protein 1+ H (Negative) Urine Glucose (UA) Negative (Negative) Urine Ketones 1+ H (Negative) Urine Occult Blood Negative (Negative) Urine Nitrite Negative (Negative) Urine Bilirubin Negative (Negative) Urine Urobilinogen 0.2 (0.2-1.0) Ur Leukocyte Esterase Negative (Negative) Urine RBC 0-5 (0-5) /hpf Urine WBC 0-5 (0-5) /hpf Ur Epithelial Cells Not Reportable Ur Squamous Epith Cells 0-5 (0-5) /hpf Urine Bacteria Few (FEW) /hpf Urine Mucus Moderate H (FEW) /hpf 07/16/16 Range/Units 05:20 WBC (4.23-9.07) K/mm3 RBC (4.63-6.08) M/mm3 Hgb (13.7-17.5) gm/L Hct (40.1-51.0) % MCV (79.0-92.2) fl MCH (25.7-32.2) pg MCHC (32.2-35.5) g/dl RDW Std Deviation (35.1-43.9) fL Plt Count (163-337) K/mm3 MPV (9.4-12.3) fl Neut % (Auto) (34.0-67.9) % Lymph % (Auto) (21.8-53.1) % [place] % (Auto) (5.3-12.2) % Eos % (Auto) (0.8-7.0) Baso % (Auto) (0.1-1.2) % Neut # (Auto) (1.78-5.38) K/mm3 Lymph # (Auto) (1.32-3.57) K/mm3 [place] # (Auto) (0.30-0.82) K/mm3 Eos # (Auto) (0.04-0.54) K/mm3 Baso # (Auto) (0.01-0.08) K/mm3 Manual Slide Review Sodium (136-145) mEq/L Potassium (3.5-5.1) mEq/L Chloride (98-107) mEq/L Carbon Dioxide (21-32) mEq/L Anion Gap (5-15) BUN (7-18) mg/dL Creatinine (0.7-1.3) mg/dL Est Cr Clr Drug Dosing mL/min Estimated GFR (MDRD) (>60) mL/min BUN/Creatinine Ratio (14-18) Glucose (83-115) mg/dL Calcium (8.5-10.1) mg/dL Magnesium (1.8-2.4) mg/dl Troponin I (0.00-0.056) ng/mL B-Natriuretic Peptide 200 H (0-100) pg/mL TSH 3rd Generation (0.358-3.74) uIU/mL Urine Color (Yellow) Urine Appearance (Clear) Urine pH (5.0-8.0) Ur Specific [place] (1.005-1.030) Urine Protein (Negative) Urine Glucose (UA) (Negative) Urine Ketones (Negative) Urine Occult Blood (Negative) Urine Nitrite (Negative) Urine Bilirubin (Negative) Urine Urobilinogen (0.2-1.0) Ur Leukocyte Esterase (Negative) Urine RBC (0-5) /hpf Urine WBC (0-5) /hpf Ur Epithelial Cells Ur Squamous Epith Cells (0-5) /hpf Urine Bacteria (FEW) /hpf Urine Mucus (FEW) /hpf Med Orders - Current: Current Medications Aspirin (Aspirin) 81 mg PO BEDTIME COUNT INCLUDES THE [facility] Last Admin: 07/15/16 20:29 Dose: 81 mg Clopidogrel Bisulfate (Plavix) 75 mg PO DAILY COUNT INCLUDES THE [facility] Last Admin: 07/16/16 09:43 Dose: 75 mg Diltiazem HCl (Cardizem Cd) 120 mg PO DAILY COUNT INCLUDES THE [facility] Last Admin: 07/16/16 09:43 Dose: 120 mg Methylprednisolone Sodium Succinate (Solu-Medrol) 40 mg IVPUSH Q12H COUNT INCLUDES THE [facility] Last Admin: 07/16/16 05:47 Dose: 40 mg Metoprolol Succinate (Toprol Xl) 12.5 mg PO BID COUNT INCLUDES THE [facility] Last Admin: 07/16/16 09:42 Dose: 12.5 mg Nitroglycerin (Nitrostat) 0.4 mg SL ASDIRECTED PRN PRN Reason: Chest Pain Pantoprazole Sodium (Protonix) 40 mg PO DAILY COUNT INCLUDES THE [facility] Last Admin: 07/16/16 09:43 Dose: 40 mg Simvastatin (Zocor) 40 mg PO BEDTIME COUNT INCLUDES THE [facility] Last Admin: 07/15/16 20:30 Dose: 40 mg Sodium Chloride (Saline Flush) 10 ml FLUSH ASDIRECTED PRN PRN Reason: Keep Vein Open Last Admin: 07/15/16 14:23 Dose: 10 ml Tamsulosin HCl (Flomax) 0.4 mg PO BEDTIME COUNT INCLUDES THE [facility] Last Admin: 07/15/16 20:28 Dose: 0.4 mg Temazepam (Restoril) 7.5 mg PO BEDTIME PRN PRN Reason: Insomnia Last Admin: 07/15/16 20:27 Dose: 7.5 mg Discontinued Medications Apixaban (Eliquis) 2.5 mg PO ONETIME ONE Stop: 07/15/16 17:33 Last Admin: 07/15/16 18:41 Dose: Not Given Apixaban (Eliquis) 2.5 mg PO ONETIME ONE Stop: 07/15/16 18:31 Last Admin: 07/15/16 18:36 Dose: 2.5 mg Diltiazem HCl (Diltiazem) 10 mg IVPUSH ONETIME ONE Stop: 07/15/16 13:53 Last Admin: 07/15/16 14:56 Dose: Not Given Diphenhydr/Magaldrate/Simeth/Lidoca (First-Mouthwash Blm Susp) 30 ml PO ONETIME ONE Stop: 07/15/16 18:44 Last Admin: 07/15/16 20:28 Dose: 119 ml Diltiazem HCl 125 mg/ Sodium (Chloride) 125 mls @ 10 mls/hr IV TITRATE JERRY; 10 MG/HR PRN Reason: Protocol Last Admin: 07/15/16 18:37 Dose: 10 mg/hr, 10 mls/hr Sodium Chloride (Normal Saline) 1,000 mls @ 125 mls/hr IV ASDIRECTED JERRY Sodium Chloride (Normal Saline) 1,000 mls @ 1,000 mls/hr IV ONETIME ONE Stop: 07/15/16 14:55 Last Admin: 07/15/16 14:23 Dose: 1,000 mls/hr Sodium Chloride (Normal Saline) 1,000 mls @ 1,000 mls/hr IV ONETIME ONE Stop: 07/15/16 15:55 Last Admin: 07/15/16 15:55 Dose: 1,000 mls/hr Lactated Ringer's (Ringers, Lactated) 1,000 mls @ 100 mls/hr IV ASDIRECTED JERRY Last Admin: 07/15/16 18:41 Dose: 100 mls/hr Metoprolol Succinate (Toprol Xl) 12.5 mg PO DAILY JERRY Pantoprazole Sodium (Protonix) 40 mg PO ACBREAKFAST JERRY Potassium Chloride (Potassium Chloride) 40 meq PO BID JERRY Stop: 07/17/16 09:01 Last Admin: 07/15/16 20:27 Dose: 40 meq Potassium Chloride (Klor-Con M20) 20 meq PO ONETIME ONE Stop: 07/16/16 06:01 Last Admin: 07/16/16 05:47 Dose: 20 meq *Q Meaningful Use (DIS) - VTE *Q VTE Criteria *Q: - Stroke *Q Stroke Criteria *Q: - AMI *Q AMI Criteria *Q:
[2016-07-16] MEDS ORDERED: Metoprolol Succinate 25 MG Tab.ER PO ONE (14:18)
[2016-07-16] MEDS: Levalbuterol HCl 1.25 MG/3 ML Neb NEB PRN ×2 (16:32→20:11)
--- NOTE | 2016-07-16 18:02 | PCM.PN ---
- General Info Date of Service: 07/16/16 Functional Status: Reports: pain controlled, tolerating diet, ambulating, urinating - Review of Systems General: Reports: Weakness, Fatigue HEENT: Reports: no symptoms Pulmonary: Reports: shortness of breath Cardiovascular: Reports: Palpitations Gastrointestinal: Reports: No symptoms Genitourinary: Reports: no symptoms Musculoskeletal: Reports: no symptoms Skin: Reports: no symptoms Neurological: Reports: No Symptoms Psychiatric: Reports: no symptoms - Patient Data Vitals - most recent: Last Vital Signs Temp 36.5 C 07/16/16 16:00 Pulse 90 07/16/16 16:00 Resp 17 07/16/16 12:00 BP 109/98 H 07/16/16 16:00 Pulse Ox 98 07/16/16 16:32 Weight - most recent: 70.806 kg I&O - last 24 hours: Intake & Output 07/16/16 07/16/16 07/16/16 06:59 14:59 22:59 Intake Total 1030 270 470 Output Total 400 Balance 630 270 470 Lab Results last 24 hrs: Laboratory Results - last 24 hr 07/16/16 07/16/16 07/16/16 Range/Units 01:17 05:20 05:20 WBC 2.31 L* (4.23-9.07) K/mm3 RBC 3.23 L (4.63-6.08) M/mm3 Hgb 9.9 L (13.7-17.5) gm/L Hct 29.0 L (40.1-51.0) % MCV 89.8 (79.0-92.2) fl MCH 30.7 (25.7-32.2) pg MCHC 34.1 (32.2-35.5) g/dl RDW Std Deviation 46.3 H (35.1-43.9) fL Plt Count 90 L (163-337) K/mm3 MPV 9.2 L (9.4-12.3) fl Neut % (Auto) 78.7 H (34.0-67.9) % Lymph % (Auto) 15.6 L (21.8-53.1) % [place] % (Auto) 4.8 L (5.3-12.2) % Eos % (Auto) 0 L (0.8-7.0) Baso % (Auto) 0.0 L (0.1-1.2) % Neut # (Auto) 1.82 (1.78-5.38) K/mm3 Lymph # (Auto) 0.36 L (1.32-3.57) K/mm3 [place] # (Auto) 0.11 L (0.30-0.82) K/mm3 Eos # (Auto) 0.00 L (0.04-0.54) K/mm3 Baso # (Auto) 0.00 L (0.01-0.08) K/mm3 Manual Slide Review Abnormal smear Sodium 139 (136-145) mEq/L Potassium 4.2 (3.5-5.1) mEq/L Chloride 109 H (98-107) mEq/L Carbon Dioxide 20 L (21-32) mEq/L Anion Gap 14.2 (5-15) BUN 38 H (7-18) mg/dL Creatinine 1.5 H (0.7-1.3) mg/dL Est Cr Clr Drug Dosing 38.00 mL/min Estimated GFR (MDRD) 45 (>60) mL/min BUN/Creatinine Ratio 25.3 H (14-18) Glucose 159 H (83-115) mg/dL Calcium 7.7 L (8.5-10.1) mg/dL Magnesium 1.9 (1.8-2.4) mg/dl Troponin I 0.019 (0.00-0.056) ng/mL B-Natriuretic Peptide (0-100) pg/mL TSH 3rd Generation 0.241 L (0.358-3.74) uIU/mL Urine Color Yellow (Yellow) Urine Appearance Clear (Clear) Urine pH 6.5 (5.0-8.0) Ur Specific [place] 1.020 (1.005-1.030) Urine Protein 1+ H (Negative) Urine Glucose (UA) Negative (Negative) Urine Ketones 1+ H (Negative) Urine Occult Blood Negative (Negative) Urine Nitrite Negative (Negative) Urine Bilirubin Negative (Negative) Urine Urobilinogen 0.2 (0.2-1.0) Ur Leukocyte Esterase Negative (Negative) Urine RBC 0-5 (0-5) /hpf Urine WBC 0-5 (0-5) /hpf Ur Epithelial Cells Not Reportable Ur Squamous Epith Cells 0-5 (0-5) /hpf Urine Bacteria Few (FEW) /hpf Urine Mucus Moderate H (FEW) /hpf 07/16/16 Range/Units 05:20 WBC (4.23-9.07) K/mm3 RBC (4.63-6.08) M/mm3 Hgb (13.7-17.5) gm/L Hct (40.1-51.0) % MCV (79.0-92.2) fl MCH (25.7-32.2) pg MCHC (32.2-35.5) g/dl RDW Std Deviation (35.1-43.9) fL Plt Count (163-337) K/mm3 MPV (9.4-12.3) fl Neut % (Auto) (34.0-67.9) % Lymph % (Auto) (21.8-53.1) % [place] % (Auto) (5.3-12.2) % Eos % (Auto) (0.8-7.0) Baso % (Auto) (0.1-1.2) % Neut # (Auto) (1.78-5.38) K/mm3 Lymph # (Auto) (1.32-3.57) K/mm3 [place] # (Auto) (0.30-0.82) K/mm3 Eos # (Auto) (0.04-0.54) K/mm3 Baso # (Auto) (0.01-0.08) K/mm3 Manual Slide Review Sodium (136-145) mEq/L Potassium (3.5-5.1) mEq/L Chloride (98-107) mEq/L Carbon Dioxide (21-32) mEq/L Anion Gap (5-15) BUN (7-18) mg/dL Creatinine (0.7-1.3) mg/dL Est Cr Clr Drug Dosing mL/min Estimated GFR (MDRD) (>60) mL/min BUN/Creatinine Ratio (14-18) Glucose (83-115) mg/dL Calcium (8.5-10.1) mg/dL Magnesium (1.8-2.4) mg/dl Troponin I (0.00-0.056) ng/mL B-Natriuretic Peptide 200 H (0-100) pg/mL TSH 3rd Generation (0.358-3.74) uIU/mL Urine Color (Yellow) Urine Appearance (Clear) Urine pH (5.0-8.0) Ur Specific [place] (1.005-1.030) Urine Protein (Negative) Urine Glucose (UA) (Negative) Urine Ketones (Negative) Urine Occult Blood (Negative) Urine Nitrite (Negative) Urine Bilirubin (Negative) Urine Urobilinogen (0.2-1.0) Ur Leukocyte Esterase (Negative) Urine RBC (0-5) /hpf Urine WBC (0-5) /hpf Ur Epithelial Cells Ur Squamous Epith Cells (0-5) /hpf Urine Bacteria (FEW) /hpf Urine Mucus (FEW) /hpf Med Orders - Current: Current Medications Apixaban (Eliquis) 2.5 mg PO BID [facility] Aspirin (Aspirin) 81 mg PO BEDTIME [facility] Last Admin: 07/15/16 20:29 Dose: 81 mg Clopidogrel Bisulfate (Plavix) 75 mg PO DAILY [facility] Last Admin: 07/16/16 09:43 Dose: 75 mg Diltiazem HCl (Cardizem Cd) 120 mg PO DAILY [facility] Last Admin: 07/16/16 09:43 Dose: 120 mg Levalbuterol HCl (Xopenex) 1.25 mg NEB Q4HRRT PRN PRN Reason: wheeze/sob Last Admin: 07/16/16 16:32 Dose: 1.25 mg Methylprednisolone Sodium Succinate (Solu-Medrol) 40 mg IVPUSH Q12H [facility] Last Admin: 07/16/16 05:47 Dose: 40 mg Metoprolol Succinate (Toprol Xl) 12.5 mg PO BID [facility] Last Admin: 07/16/16 09:42 Dose: 12.5 mg Nitroglycerin (Nitrostat) 0.4 mg SL ASDIRECTED PRN PRN Reason: Chest Pain Pantoprazole Sodium (Protonix) 40 mg PO DAILY [facility] Last Admin: 07/16/16 09:43 Dose: 40 mg Simvastatin (Zocor) 40 mg PO BEDTIME [facility] Last Admin: 07/15/16 20:30 Dose: 40 mg Sodium Chloride (Saline Flush) 10 ml FLUSH ASDIRECTED PRN PRN Reason: Keep Vein Open Last Admin: 07/15/16 14:23 Dose: 10 ml Tamsulosin HCl (Flomax) 0.4 mg PO BEDTIME [facility] Last Admin: 07/15/16 20:28 Dose: 0.4 mg Temazepam (Restoril) 7.5 mg PO BEDTIME PRN PRN Reason: Insomnia Last Admin: 07/15/16 20:27 Dose: 7.5 mg Discontinued Medications Apixaban (Eliquis) 2.5 mg PO ONETIME ONE Stop: 07/15/16 17:33 Last Admin: 07/15/16 18:41 Dose: Not Given Apixaban (Eliquis) 2.5 mg PO ONETIME ONE Stop: 07/15/16 18:31 Last Admin: 07/15/16 18:36 Dose: 2.5 mg Diltiazem HCl (Diltiazem) 10 mg IVPUSH ONETIME ONE Stop: 07/15/16 13:53 Last Admin: 07/15/16 14:56 Dose: Not Given Diphenhydr/Magaldrate/Simeth/Lidoca (First-Mouthwash Blm Susp) 30 ml PO ONETIME ONE Stop: 07/15/16 18:44 Last Admin: 07/15/16 20:28 Dose: 119 ml Diltiazem HCl 125 mg/ Sodium (Chloride) 125 mls @ 10 mls/hr IV TITRATE JERRY; 10 MG/HR PRN Reason: Protocol Last Admin: 07/15/16 18:37 Dose: 10 mg/hr, 10 mls/hr Sodium Chloride (Normal Saline) 1,000 mls @ 125 mls/hr IV ASDIRECTED JERRY Sodium Chloride (Normal Saline) 1,000 mls @ 1,000 mls/hr IV ONETIME ONE Stop: 07/15/16 14:55 Last Admin: 07/15/16 14:23 Dose: 1,000 mls/hr Sodium Chloride (Normal Saline) 1,000 mls @ 1,000 mls/hr IV ONETIME ONE Stop: 07/15/16 15:55 Last Admin: 07/15/16 15:55 Dose: 1,000 mls/hr Lactated Ringer's (Ringers, Lactated) 1,000 mls @ 100 mls/hr IV ASDIRECTED JERRY Last Admin: 07/15/16 18:41 Dose: 100 mls/hr Metoprolol Succinate (Toprol Xl) 12.5 mg PO DAILY JERRY Metoprolol Succinate (Toprol Xl) 12.5 mg PO ONETIME ONE Stop: 07/16/16 14:19 Last Admin: 07/16/16 14:25 Dose: 12.5 mg Pantoprazole Sodium (Protonix) 40 mg PO ACBREAKFAST JERRY Potassium Chloride (Potassium Chloride) 40 meq PO BID JERRY Stop: 07/17/16 09:01 Last Admin: 07/15/16 20:27 Dose: 40 meq Potassium Chloride (Klor-Con M20) 20 meq PO ONETIME ONE Stop: 07/16/16 06:01 Last Admin: 07/16/16 05:47 Dose: 20 meq - Exam Quality Assessment: DVT prophylaxis General: alert, oriented, cooperative, no acute distress HEENT: Pupils equal, Pupils reactive, EOMI Neck: supple, trachea midline Lungs: Normal respiratory effort, Decreased breath sounds, Wheezing Cardiovascular: Regular Rate, Tachycardia Abdomen: bowel sounds present, soft, no tenderness, no distension (Male) Exam: Deferred Back Exam: Normal Inspection Extremities: normal pulses Skin: warm Neurological: no new focal deficit, normal gait, normal speech, cranial nerves intact Psy/Mental Status: alert, normal mood - Problem List & Annotations (1) CAD (coronary artery disease) SNOMED Code(s): 31958452 Code(s): I25.10 - ATHSCL HEART DISEASE OF [place] CORONARY ARTERY W/O ANG PCTRS Status: Acute Current Visit: Yes (2) Lung mass SNOMED Code(s): 669837576 Code(s): R91.8 - OTHER NONSPECIFIC ABNORMAL FINDING OF LUNG FIELD Status: Acute Current Visit: Yes (3) GERD (gastroesophageal reflux disease) SNOMED Code(s): 702246972 Code(s): K21.9 - GASTRO-ESOPHAGEAL REFLUX DISEASE WITHOUT ESOPHAGITIS Status: Acute Current Visit: Yes (4) Atrial fibrillation SNOMED Code(s): 73383571 Code(s): I48.91 - UNSPECIFIED ATRIAL FIBRILLATION Status: Acute Current Visit: Yes Qualifiers: Atrial fibrillation type: paroxysmal Qualified Code(s): I48.0 - Paroxysmal atrial fibrillation (5) Dehydration SNOMED Code(s): 60196560 Code(s): E86.0 - DEHYDRATION Status: Acute Current Visit: Yes (6) Difficulty swallowing SNOMED Code(s): 73844036, 395472270 Code(s): R13.10 - DYSPHAGIA, UNSPECIFIED Status: Acute Current Visit: Yes Qualifiers: Dysphagia type: unspecified Qualified Code(s): R13.10 - Dysphagia, unspecified - Problem List Review Problem List Initiated/Reviewed/Updated: Yes - My Orders Last 24 Hours: My Active Orders 07/15/16 17:28 Nitroglycerin [Nitrostat] 0.4 mg SL ASDIRECTED PRN 07/15/16 17:32 Code Status [Resuscitation Status] Routine 07/15/16 17:38 Antiembolic Devices [RC] BID ADRIENNE Hose [Antiembolic Hose] [OM.PC] Routine 07/15/16 18:00 methylPREDNISolone Sod Succ [Solu-MEDROL] 40 mg IVPUSH Q12H 07/15/16 18:46 Temazepam [Restoril] 7.5 mg PO BEDTIME PRN 07/15/16 18:56 Up With Assistance [RC] ASDIRECTED 07/15/16 21:00 Aspirin 81 mg PO BEDTIME Metoprolol Succinate [Toprol XL] 12.5 mg PO BID Simvastatin [Zocor] 40 mg PO BEDTIME Tamsulosin [Flomax] 0.4 mg PO BEDTIME 07/16/16 07:00 EKG 12 Lead [EKG Documentation Completion] [RC] ROUTINE 07/16/16 09:00 Consult to Speech Language Pathology [OPTICAL DISPENSER Evaluation and Treatment] [CONS] Routine Clopidogrel [Plavix] 75 mg PO DAILY Diltiazem [Cardizem CD] 120 mg PO DAILY Pantoprazole [ProTONIX] 40 mg PO DAILY 07/16/16 10:00 Consult to Tube Bending Machine Operator [CONS] Routine PT Evaluation and Treatment [CONS] Routine 07/16/16 16:23 RT Aerosol Therapy [RC] ASDIRECTED Levalbuterol HCl [Xopenex] 1.25 mg NEB Q4HRRT PRN 07/16/16 17:35 Consult to Occupational Therapy [OT Evaluation and Treatment] [CONS] Routine 07/16/16 Lunch Regular Diet [DIET] 07/17/16 05:00 BASIC METABOLIC PANEL,BMP [CHEM] DAILY CBC WITH AUTO DIFF [HEME] DAILY MAGNESIUM [CHEM] DAILY 07/18/16 05:00 BASIC METABOLIC PANEL,BMP [CHEM] DAILY CBC WITH AUTO DIFF [HEME] DAILY MAGNESIUM [CHEM] DAILY - Plan Plan:: Impression: PAF, started on Eliquis, had an episode of RVR, DC held today Lung Mass s/p RTX/CTX, 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 Dehydration with N/V, resolved. ARF Hyperlipidemia Chronic CAD/SC HTN Plan: IVF Continue steroids Start Xopenex Antiemetic Pain meds Repeat CXR, 2 view Cardizem gtt Home meds SW/PT/OT/SP Query Swallow Video Home Health Consult DC 24-48, scheduled to resume CTX on 07/19/16
[2016-07-16] MEDS: Tamsulosin 0.4 MG Cap.ER PO SCH (20:27)
[2016-07-16] MEDS: Apixaban 5 MG Tab PO SCH (20:27)
[2016-07-16] MEDS: Temazepam 7.5 MG Cap PO PRN (20:27)
[2016-07-16] MEDS: Simvastatin 40 MG Tab PO SCH (20:28)
[2016-07-16] MEDS: Aspirin 81 MG Tab.Chew PO SCH (20:28)
[2016-07-17] MEDS: methylPREDNISolone Sodium Succinate 40 MG/1 ML SDV IVPUSH SCH ×2 (06:00→17:52)
[2016-07-17] MEDS: Levalbuterol HCl 1.25 MG/3 ML Neb NEB PRN ×3 (06:15→21:32)
[2016-07-17] MEDS: Apixaban 5 MG Tab PO SCH ×3 (07:39→21:07)
[2016-07-17] MEDS: Clopidogrel 75 MG Tab PO SCH ×2 (07:39→08:16)
[2016-07-17] MEDS: Pantoprazole 40 MG Tab.CR PO SCH ×2 (07:40→08:16)
[2016-07-17] MEDS: Metoprolol Succinate 25 MG Tab.ER PO SCH ×2 (07:40→08:17)
[2016-07-17] MEDS: Diltiazem 120 MG Cap.CD PO SCH ×2 (07:42→08:16)
[2016-07-17] MEDS ORDERED: Metoprolol Tartrate 25 MG Tab PO SCH (09:15)
[2016-07-17] MEDS: Metoprolol Tartrate 25 MG Tab PO SCH ×3 (09:49→21:06)
[2016-07-17] MEDS ORDERED: Potassium Chloride 10% 20 MEQ/15 ML Soln 30 ML UD Cup PO SCH (11:00)
--- NOTE | 2016-07-17 14:03 | PCM.PN ---
- General Info Date of Service: 07/17/16 Functional Status: Reports: pain controlled, tolerating diet, ambulating, urinating - Review of Systems General: Reports: No Symptoms HEENT: Reports: no symptoms Pulmonary: Reports: shortness of breath (with A Fib RVR) Cardiovascular: Reports: No Symptoms Gastrointestinal: Reports: No symptoms Genitourinary: Reports: no symptoms Musculoskeletal: Reports: no symptoms Skin: Reports: no symptoms Neurological: Reports: No Symptoms Psychiatric: Reports: no symptoms - Patient Data Vitals - most recent: Last Vital Signs Temp 36.8 C 07/17/16 12:00 Pulse 98 07/17/16 09:49 Resp 16 07/17/16 12:00 BP 107/59 L 07/17/16 12:00 Pulse Ox 97 07/17/16 12:00 Weight - most recent: 71.123 kg I&O - last 24 hours: Intake & Output 07/16/16 07/17/16 07/17/16 22:59 06:59 14:59 Intake Total 740 600 Balance 740 600 Lab Results last 24 hrs: Laboratory Results - last 24 hr 07/17/16 07/17/16 Range/Units 06:33 06:33 WBC 3.90 L (4.23-9.07) K/mm3 RBC 3.30 L (4.63-6.08) M/mm3 Hgb 10.1 L (13.7-17.5) gm/L Hct 29.6 L (40.1-51.0) % MCV 89.7 (79.0-92.2) fl MCH 30.6 (25.7-32.2) pg MCHC 34.1 (32.2-35.5) g/dl RDW Std Deviation 46.1 H (35.1-43.9) fL Plt Count 96 L (163-337) K/mm3 MPV 9.4 (9.4-12.3) fl Neut % (Auto) 73.3 H (34.0-67.9) % Lymph % (Auto) 16.4 L (21.8-53.1) % [place] % (Auto) 8.5 (5.3-12.2) % Eos % (Auto) 0 L (0.8-7.0) Baso % (Auto) 0.0 L (0.1-1.2) % Neut # (Auto) 2.86 (1.78-5.38) K/mm3 Lymph # (Auto) 0.64 L (1.32-3.57) K/mm3 [place] # (Auto) 0.33 (0.30-0.82) K/mm3 Eos # (Auto) 0.00 L (0.04-0.54) K/mm3 Baso # (Auto) 0.00 L (0.01-0.08) K/mm3 Manual Slide Review Abnormal smear Sodium 141 (136-145) mEq/L Potassium 3.6 (3.5-5.1) mEq/L Chloride 108 H (98-107) mEq/L Carbon Dioxide 20 L (21-32) mEq/L Anion Gap 16.6 H (5-15) BUN 34 H (7-18) mg/dL Creatinine 1.4 H (0.7-1.3) mg/dL Est Cr Clr Drug Dosing 40.71 mL/min Estimated GFR (MDRD) 49 (>60) mL/min BUN/Creatinine Ratio 24.3 H (14-18) Glucose 143 H (83-115) mg/dL Calcium 8.1 L (8.5-10.1) mg/dL Magnesium 2.0 (1.8-2.4) mg/dl Med Orders - Current: Current Medications Apixaban (Eliquis) 2.5 mg PO BID [facility] Last Admin: 07/17/16 08:16 Dose: Not Given Aspirin (Aspirin) 81 mg PO BEDTIME [facility] Last Admin: 07/16/16 20:28 Dose: 81 mg Clopidogrel Bisulfate (Plavix) 75 mg PO DAILY [facility] Last Admin: 07/17/16 08:16 Dose: Not Given Diltiazem HCl (Cardizem Cd) 120 mg PO DAILY [facility] Last Admin: 07/17/16 08:16 Dose: Not Given Levalbuterol HCl (Xopenex) 1.25 mg NEB Q4HRRT PRN PRN Reason: wheeze/sob Last Admin: 07/17/16 06:15 Dose: 1.25 mg Methylprednisolone Sodium Succinate (Solu-Medrol) 40 mg IVPUSH Q12H [facility] Last Admin: 07/17/16 06:00 Dose: 40 mg Metoprolol Tartrate (Lopressor) 12.5 mg PO Q8HR [facility] Last Admin: 07/17/16 09:49 Dose: 12.5 mg Nitroglycerin (Nitrostat) 0.4 mg SL ASDIRECTED PRN PRN Reason: Chest Pain Pantoprazole Sodium (Protonix) 40 mg PO DAILY JERRY Last Admin: 07/17/16 08:16 Dose: Not Given Potassium Chloride (Potassium Chloride) 40 meq PO DAILY JERRY Simvastatin (Zocor) 40 mg PO BEDTIME JERRY Last Admin: 07/16/16 20:28 Dose: 40 mg Tamsulosin HCl (Flomax) 0.4 mg PO BEDTIME JERRY Last Admin: 07/16/16 20:27 Dose: 0.4 mg Temazepam (Restoril) 7.5 mg PO BEDTIME PRN PRN Reason: Insomnia Last Admin: 07/16/16 20:27 Dose: 7.5 mg Discontinued Medications Apixaban (Eliquis) 2.5 mg PO ONETIME ONE Stop: 07/15/16 17:33 Last Admin: 07/15/16 18:41 Dose: Not Given Apixaban (Eliquis) 2.5 mg PO ONETIME ONE Stop: 07/15/16 18:31 Last Admin: 07/15/16 18:36 Dose: 2.5 mg Diltiazem HCl (Diltiazem) 10 mg IVPUSH ONETIME ONE Stop: 07/15/16 13:53 Last Admin: 07/15/16 14:56 Dose: Not Given Diphenhydr/Magaldrate/Simeth/Lidoca (First-Mouthwash Blm Susp) 30 ml PO ONETIME ONE Stop: 07/15/16 18:44 Last Admin: 07/15/16 20:28 Dose: 119 ml Diltiazem HCl 125 mg/ Sodium (Chloride) 125 mls @ 10 mls/hr IV TITRATE JERRY; 10 MG/HR PRN Reason: Protocol Last Admin: 07/15/16 18:37 Dose: 10 mg/hr, 10 mls/hr Sodium Chloride (Normal Saline) 1,000 mls @ 125 mls/hr IV ASDIRECTED JERRY Sodium Chloride (Normal Saline) 1,000 mls @ 1,000 mls/hr IV ONETIME ONE Stop: 07/15/16 14:55 Last Admin: 07/15/16 14:23 Dose: 1,000 mls/hr Sodium Chloride (Normal Saline) 1,000 mls @ 1,000 mls/hr IV ONETIME ONE Stop: 07/15/16 15:55 Last Admin: 07/15/16 15:55 Dose: 1,000 mls/hr Lactated Ringer's (Ringers, Lactated) 1,000 mls @ 100 mls/hr IV ASDIRECTED [facility] Last Admin: 07/15/16 18:41 Dose: 100 mls/hr Metoprolol Succinate (Toprol Xl) 12.5 mg PO DAILY [facility] Metoprolol Succinate (Toprol Xl) 12.5 mg PO BID [facility] Last Admin: 07/17/16 08:17 Dose: Not Given Metoprolol Succinate (Toprol Xl) 12.5 mg PO ONETIME ONE Stop: 07/16/16 14:19 Last Admin: 07/16/16 14:25 Dose: 12.5 mg Metoprolol Tartrate (Lopressor) 25 mg PO Q8H [facility] Last Admin: 07/17/16 09:47 Dose: Not Given Pantoprazole Sodium (Protonix) 40 mg PO ACBREAKFAST [facility] Potassium Chloride (Potassium Chloride) 40 meq PO BID [facility] Stop: 07/17/16 09:01 Last Admin: 07/15/16 20:27 Dose: 40 meq Potassium Chloride (Klor-Con M20) 20 meq PO ONETIME ONE Stop: 07/16/16 06:01 Last Admin: 07/16/16 05:47 Dose: 20 meq Sodium Chloride (Saline Flush) 10 ml FLUSH ASDIRECTED PRN PRN Reason: Keep Vein Open Last Admin: 07/15/16 14:23 Dose: 10 ml - Exam Quality Assessment: supplemental oxygen, DVT prophylaxis General: alert, oriented, cooperative, no acute distress HEENT: Pupils equal, Pupils reactive, EOMI Neck: supple, trachea midline, no JVD Lungs: Normal respiratory effort Cardiovascular: Regular Rate, Regular Rhythm Abdomen: bowel sounds present, soft, no tenderness, no distension (Male) Exam: Deferred Back Exam: Normal Inspection Extremities: normal pulses Skin: warm Neurological: normal gait, normal speech Psy/Mental Status: alert, normal affect, normal mood - Problem List & Annotations (1) CAD (coronary artery disease) SNOMED Code(s): 07761724 Code(s): I25.10 - ATHSCL HEART DISEASE OF [place] CORONARY ARTERY W/O ANG PCTRS Status: Acute Current Visit: Yes (2) Lung mass SNOMED Code(s): 437199753 Code(s): R91.8 - OTHER NONSPECIFIC ABNORMAL FINDING OF LUNG FIELD Status: Acute Current Visit: Yes (3) GERD (gastroesophageal reflux disease) SNOMED Code(s): 385009989 Code(s): K21.9 - GASTRO-ESOPHAGEAL REFLUX DISEASE WITHOUT ESOPHAGITIS Status: Acute Current Visit: Yes (4) Atrial fibrillation SNOMED Code(s): 85121576 Code(s): I48.91 - UNSPECIFIED ATRIAL FIBRILLATION Status: Acute Current Visit: Yes Qualifiers: Atrial fibrillation type: paroxysmal Qualified Code(s): I48.0 - Paroxysmal atrial fibrillation (5) Dehydration SNOMED Code(s): 84913436 Code(s): E86.0 - DEHYDRATION Status: Acute Current Visit: Yes (6) Difficulty swallowing SNOMED Code(s): 04437572, 869555247 Code(s): R13.10 - DYSPHAGIA, UNSPECIFIED Status: Acute Current Visit: Yes Qualifiers: Dysphagia type: unspecified Qualified Code(s): R13.10 - Dysphagia, unspecified - Problem List Review Problem List Initiated/Reviewed/Updated: Yes - My Orders Last 24 Hours: My Active Orders 07/16/16 16:23 RT Aerosol Therapy [RC] ASDIRECTED Levalbuterol HCl [Xopenex] 1.25 mg NEB Q4HRRT PRN 07/16/16 17:35 Consult to Occupational Therapy [OT Evaluation and Treatment] [CONS] Routine 07/17/16 09:12 EKG 12 Lead [EKG Documentation Completion] [RC] ROUTINE 07/17/16 09:35 Metoprolol Tartrate [Lopressor] 12.5 mg PO Q8HR 07/17/16 09:58 Lung Vent Perfusion [NM] Routine 07/17/16 11:00 Potassium Chloride 40 meq PO DAILY 07/18/16 05:00 BASIC METABOLIC PANEL,BMP [CHEM] DAILY CBC WITH AUTO DIFF [HEME] DAILY MAGNESIUM [CHEM] DAILY - Plan Plan:: Impression: PAF, started on Eliquis, had an episode of RVR, DC held Query PE Lung Mass s/p RTX/CTX, 4-5 days [employer] Dysphagia-responded to Magic mouthwash, improved. Dehydration with N/V, resolved. ARF Hyperlipidemia Chronic CAD/MD HTN Plan: IVF V/Q scan TBA Continue steroids Start Xopenex Antiemetic Pain meds Repeat CXR, 2 view Cardizem gtt Home meds SW/PT/OT/SP Query Swallow Video Home Health Consult DC 24-48, scheduled to resume CTX nect week; cardiology appy 07/22/16.
--- NOTE | 2016-07-17 14:47 | NM ---
Ventilation/perfusion lung scan Technique: 2.0 mCi of technetium 99m MAA was given intravenously. Scintigraphic imaging then obtained over the lung chan. Following this portion of the study 40 mCi of technetium 99m DTPA was aerosolized and patient inhaled the mixture. Continued scintigraphic imaging was performed. Findings: Multiple defects which appear matched seen throughout both lungs. No definite mismatched defect is seen. Findings have an indeterminate probability for pulmonary embolism. Impression: 1. Multiple matched defects with study having an indeterminate probability for pulmonary embolism. Diagnostic code #3
[2016-07-17] MEDS: Potassium Chloride 20 MEQ Tab.ER PO SCH (15:02)
[2016-07-17] MEDS: Temazepam 7.5 MG Cap PO PRN (21:06)
[2016-07-17] MEDS: Simvastatin 40 MG Tab PO SCH (21:08)
[2016-07-17] MEDS: Tamsulosin 0.4 MG Cap.ER PO SCH (21:08)
[2016-07-17] MEDS: Aspirin 81 MG Tab.Chew PO SCH (21:08)
[2016-07-18] MEDS: Metoprolol Tartrate 25 MG Tab PO SCH (05:08)
[2016-07-18] MEDS: methylPREDNISolone Sodium Succinate 40 MG/1 ML SDV IVPUSH SCH (05:09)
[2016-07-18] MEDS: Levalbuterol HCl 1.25 MG/3 ML Neb NEB PRN (06:53)
[2016-07-18] MEDS ORDERED: predniSONE 10 MG Tab PO SCH (07:00)
[2016-07-18] MEDS: Clopidogrel 75 MG Tab PO SCH (08:11)
[2016-07-18] MEDS: Pantoprazole 40 MG Tab.CR PO SCH (08:11)
[2016-07-18] MEDS: Diltiazem 120 MG Cap.CD PO SCH (08:11)
[2016-07-18] MEDS: Potassium Chloride 20 MEQ Tab.ER PO SCH (08:12)
[2016-07-18] MEDS: Apixaban 5 MG Tab PO SCH (08:12)
[2016-07-18] MEDS ORDERED: Metoprolol Tartrate 25 MG Tab PO ONE (12:00)
[2016-07-18 12:05] VITALS: BP 114/73
== END 2016-07-18 13:55 | disposition home or self-care (01) | DRG 309 ==
LOC: JD.ED 13:43 → JD.ICU 16:30 → UNDOADMIN 16:30 → JD.ICU 17:03 → UNDODISIN 07-18 13:55
PROVIDERS: ADMIT Internal Medicine Cardiovascular Disease; ATTEND Internal Medicine Cardiovascular Disease
DX: I48.0 Paroxysmal atrial fibrillation (principal); N17.9 Acute kidney failure, unspecified; I25.10 Atherosclerotic heart disease of native coronary artery without angina pectoris; R91.8 Other nonspecific abnormal finding of lung field; K21.9 Gastro-esophageal reflux disease without esophagitis; E86.0 Dehydration; R13.10 Dysphagia, unspecified; Z95.5 Presence of coronary angioplasty implant and graft; I25.2 Old myocardial infarction; Z87.891 Personal history of nicotine dependence; E78.5 Hyperlipidemia, unspecified; R51 Headache
CPT/HCPCS: 36415; 70450; 71010; 80053; 84484; 85025; 85610; 93005 ×2; 96360; 96361; 99285; J7040 ×2; J7050; 71020; 71020-26; 78582; 78582-26; 80048; 81001; 83735; 83880; 84443; 92610-GN; 94640-76; 94664; 97161-GP; 97165-GO; 97530-GO; 99284; A9270-GY; A9540; J2920; J7030; J7120

== ENCOUNTER 2016-08-20 12:14 | Emergency (ER) | payer MEDICARE, OTHER ==
[2016-08-20 12:29] VITALS: BP 104/71
[2016-08-20] MEDS ORDERED: Sodium Chloride 0.9% 1,000 ML IV ONE (13:12)
[2016-08-20] MEDS ORDERED: Sodium Chloride 0.9% 10 ML Syringe FLUSH PRN (13:12)
--- NOTE | 2016-08-20 13:32 | EDM.PDOC ---
ED HPI GENERAL MEDICAL PROBLEM - General Chief Complaint: Neurological Problem Stated Complaint: REACTION TO PEGFILGRASTIM INJECTION Time Seen by Provider: 08/20/16 12:40 Source of Information: Reports: Patient History Limitations: Reports: No Limitations - History of Present Illness INITIAL COMMENTS - FREE TEXT/NARRATIVE: 81-year-old male presents for evaluation and treatment of dizziness and weakness. Patient reports that he began experiencing symptoms on Friday night. Reports associated symptoms of dizziness, weakness and blurred vision. He reports that he received an interferon injection on Friday. Reports that the side effect is dizziness. He denies any pain. Additionally, he denies any diarrhea, melena, hematochezia, syncopal episodes, decreased appetite, nausea, vomiting, abdominal pain, chest pain or shortness of breath. Patient reports that he did have a slight headache yesterday which resolved with Tylenol. Patient is currently on 81 mg aspirin and on eliquis. Patient has a past medical history of lung cancer and prostate cancer. Currently receiving radiation and chemotherapy for these. He states he has been receiving chemotherapy for the last 9 weeks and has about 1 infusion left. Patient reports that his blood pressure is normally in the 120 systolic. He checks this daily. - Related Data Allergies Allergy/AdvReac Type Severity Reaction Status Date / Time No Known Allergies Allergy Verified 08/20/16 12:25 Home Meds: Home Meds Aspirin 81 mg PO DAILY 05/31/16 [History] Diltiazem [Cardizem CD] 120 mg PO DAILY 05/31/16 [History] Nitroglycerin [Nitrostat] 0.4 mg SL ASDIRECTED PRN 05/31/16 [History] Pantoprazole Sodium [Protonix] 40 mg PO DAILY 05/31/16 [History] Simvastatin [Zocor] 40 mg PO BEDTIME 05/31/16 [History] Tamsulosin [Flomax] 1 cap PO BID 05/31/16 [History] Apixaban [Eliquis] 2.5 mg PO BID #60 tablet 07/18/16 [Rx] Acetaminophen [Tylenol] 325 - 650 mg PO Q4HR PRN 08/20/16 [History] Albuterol Sulfate [Proair Respiclick] 1 puff INH Q4HR PRN 08/20/16 [History] Benzonatate [Tessalon Perle] 200 mg PO TID PRN 08/20/16 [History] Codeine/Promethazine [Phenergan with Codeine] 5 ml PO BEDTIME PRN 08/20/16 [ History] Dexamethasone 1 tab PO ASDIRECTED 08/20/16 [History] Diphenhyd/Lidocaine/Nystatin [Magic Mouthwash] 10 ml GARGLE BID PRN 08/20/16 [ History] Metoprolol Tartrate [Lopressor] 1.5 tab PO BID 08/20/16 [History] Plant Stanol Zayra [Cholest Off] 1 tab PO ASDIRECTED 08/20/16 [History] Past Medical History HEENT History: Reports: Cataract, Impaired Vision Cardiovascular History: Reports: CAD, High Cholesterol, MA, Stents Other Cardiovascular History: MA in 2015, arteriosclerotic heart disease Respiratory History: Reports: SOB, Other (See Below) Other Respiratory History: Right upper lobe lung mass, bronchoscopy Gastrointestinal History: Reports: GERD Genitourinary History: Reports: Other (See Below) Other Genitourinary History: "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" [employer] History: Reports: None Musculoskeletal History: Reports: None Neurological 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 Psychiatric History: Reports: None Endocrine/Metabolic History: Reports: None Hematologic History: Reports: None Immunologic History: Reports: None Oncologic (Cancer) History: Reports: Lung, Prostate Dermatologic History: Reports: None - Infectious Disease History Infectious Disease History: Reports: C-Difficile, Measles, Mumps - Past Surgical History HEENT Surgical History: Reports: Adenoidectomy, Cataract Surgery, Tonsillectomy GI Surgical History: Reports: Colonoscopy Social & Family History - Family History Family Medical History: Noncontributory - Tobacco Use Smoking Status *Q: Former Smoker Years of Tobacco use: 32 Used Tobacco, but Quit: Yes Month Tobacco Last Used: 2001 Second Hand Smoke Exposure: No - Caffeine Use Caffeine Use: Reports: Coffee - Recreational Drug Use Recreational Drug Use: No ED ROS GENERAL - Review of Systems Review Of Systems: See Below Constitutional: Reports: Weakness. Denies: Fever, Decreased Appetite Respiratory: Denies: Shortness of Breath Cardiovascular: Denies: Chest Pain GI/Abdominal: Denies: Abdominal Pain, Diarrhea, Hematochezia, Melena, Nausea, Vomiting Neurological: Reports: Dizziness, Weakness. Denies: Headache, Syncope ED EXAM, NEURO - Physical Exam Exam: See Below Exam Limited By: No Limitations General Appearance: Alert, WD/WN, No Apparent Distress Eye Exam: Bilateral Eye: PERRL Ears: Normal External Exam, Normal Canal, Hearing Grossly Normal, Normal TMs Nose: Normal Inspection Throat/Mouth: Normal Inspection, Normal Lips, Normal Voice, No Airway Compromise Respiratory/Chest: No Respiratory Distress, Lungs Clear, Normal Breath Sounds Cardiovascular: Normal Peripheral Pulses, Regular Rate, Rhythm, No Murmur GI/Abdominal: Normal Bowel Sounds, Soft, Non-Tender, Other (heme negative stool) Rectal (Males) Exam: Normal Exam, Normal Rectal Tone, Heme - Stool, Other ( rectal skin tags). No: Hemorrhoids Neurological: Alert, Normal Mood/Affect, Normal Dorsiflexion, Normal Plantar Flexion, Normal Gait, No Motor/Sensory Deficits Psychiatric: Normal Affect, Normal Mood Skin Exam: Warm, Dry, Normal Color EKG INTERPRETATION EKG Date: 08/20/16 Time: 13:20 Rhythm: NSR Rate (Beats/Min): 68 [place]: Normal P-Wave: Present QRS: Normal ST-T: Normal QT: Normal EKG Interpretation Comments: NSR at 68 bpm. Occasional PAC. LAD -60 degrees. LAFB pattern. Reviewed by myself and Dr. Randall. Course - Vital Signs Last Recorded V/S: Last Vital Signs Temp 36.5 C 08/20/16 12:25 Pulse 71 08/20/16 12:25 Resp 14 08/20/16 12:25 BP 104/71 08/20/16 12:25 Pulse Ox 98 08/20/16 12:25 Orthostatic Blood Pressure [ 72/46 Standing] Orthostatic Blood Pressure [ 102/67 Sitting] Orthostatic Blood Pressure [ 101/72 Supine] - Orders/Labs/Meds Labs: Laboratory Tests 08/20/16 08/20/16 08/20/16 Range/Units 13:15 13:15 13:15 WBC 7.36 (4.23-9.07) K/mm3 RBC 3.22 L (4.63-6.08) M/mm3 Hgb 10.2 L (13.7-17.5) gm/L Hct 31.7 L (40.1-51.0) % MCV 98.4 H (79.0-92.2) fl MCH 31.7 (25.7-32.2) pg MCHC 32.2 (32.2-35.5) g/dl RDW Std Deviation 63.4 H (35.1-43.9) fL Plt Count 99 L (163-337) K/mm3 MPV 9.4 (9.4-12.3) fl Neutrophils % (Manual) 60 (40-60) % Band Neutrophils % 3 (0-10) % Lymphocytes % (Manual) 36 (20-40) % Atypical Lymphs % 0 % Monocytes % (Manual) 0 L (2-10) % Eosinophils % (Manual) 1 (0.8-7.0) % Basophils % (Manual) 0 L (0.2-1.2) Platelet Estimate See note RBC Morph Comment Normal PT 10.4 (8.0-13.0) SECONDS INR 0.96 APTT 24 (22-36) SECONDS Sodium 137 (136-145) mEq/L Potassium 3.9 (3.5-5.1) mEq/L Chloride 104 (98-107) mEq/L Carbon Dioxide 25 (21-32) mEq/L Anion Gap 11.9 (5-15) BUN 35 H (7-18) mg/dL Creatinine 1.8 H (0.7-1.3) mg/dL Est Cr Clr Drug Dosing 30.60 mL/min Estimated GFR (MDRD) 36 (>60) mL/min BUN/Creatinine Ratio 19.4 H (14-18) Glucose 147 H (83-115) mg/dL Calcium 8.3 L (8.5-10.1) mg/dL Total Bilirubin 0.6 (0.2-1.0) mg/dL AST 14 L (15-37) U/L ALT 23 (16-63) U/L Alkaline Phosphatase 77 (46-116) U/L Troponin I (0.00-0.056) ng/mL C-Reactive Protein (<1.0) mg/dL B-Natriuretic Peptide (0-100) pg/mL Total Protein 6.3 L (6.4-8.2) g/dl Albumin 2.8 L (3.4-5.0) g/dl Globulin 3.5 gm/dL Albumin/Globulin Ratio 0.8 L (1-2) Urine Color (Yellow) Urine Appearance (Clear) Urine pH (5.0-8.0) Ur Specific [place] (1.005-1.030) Urine Protein (Negative) Urine Glucose (UA) (Negative) Urine Ketones (Negative) Urine Occult Blood (Negative) Urine Nitrite (Negative) Urine Bilirubin (Negative) Urine Urobilinogen (0.2-1.0) Ur Leukocyte Esterase (Negative) Urine RBC (0-5) /hpf Urine WBC (0-5) /hpf Ur Epithelial Cells (0-5) /hpf Urine Bacteria (FEW) /hpf Urine Mucus (FEW) /hpf Blood Type Gel Antibody Screen 08/20/16 08/20/16 08/20/16 Range/Units 13:15 13:15 13:15 WBC (4.23-9.07) K/mm3 RBC (4.63-6.08) M/mm3 Hgb (13.7-17.5) gm/L Hct (40.1-51.0) % MCV (79.0-92.2) fl MCH (25.7-32.2) pg MCHC (32.2-35.5) g/dl RDW Std Deviation (35.1-43.9) fL Plt Count (163-337) K/mm3 MPV (9.4-12.3) fl Neutrophils % (Manual) (40-60) % Band Neutrophils % (0-10) % Lymphocytes % (Manual) (20-40) % Atypical Lymphs % % Monocytes % (Manual) (2-10) % Eosinophils % (Manual) (0.8-7.0) % Basophils % (Manual) (0.2-1.2) Platelet Estimate RBC Morph Comment PT (8.0-13.0) SECONDS INR APTT (22-36) SECONDS Sodium (136-145) mEq/L Potassium (3.5-5.1) mEq/L Chloride (98-107) mEq/L Carbon Dioxide (21-32) mEq/L Anion Gap (5-15) BUN (7-18) mg/dL Creatinine (0.7-1.3) mg/dL Est Cr Clr Drug Dosing mL/min Estimated GFR (MDRD) (>60) mL/min BUN/Creatinine Ratio (14-18) Glucose (83-115) mg/dL Calcium (8.5-10.1) mg/dL Total Bilirubin (0.2-1.0) mg/dL AST (15-37) U/L ALT (16-63) U/L Alkaline Phosphatase (46-116) U/L Troponin I (0.00-0.056) ng/mL C-Reactive Protein < 0.2 (<1.0) mg/dL B-Natriuretic Peptide 75 (0-100) pg/mL Total Protein (6.4-8.2) g/dl Albumin (3.4-5.0) g/dl Globulin gm/dL Albumin/Globulin Ratio (1-2) Urine Color (Yellow) Urine Appearance (Clear) Urine pH (5.0-8.0) Ur Specific [place] (1.005-1.030) Urine Protein (Negative) Urine Glucose (UA) (Negative) Urine Ketones (Negative) Urine Occult Blood (Negative) Urine Nitrite (Negative) Urine Bilirubin (Negative) Urine Urobilinogen (0.2-1.0) Ur Leukocyte Esterase (Negative) Urine RBC (0-5) /hpf Urine WBC (0-5) /hpf Ur Epithelial Cells (0-5) /hpf Urine Bacteria (FEW) /hpf Urine Mucus (FEW) /hpf Blood Type O POSITIVE Gel Antibody Screen Negative 08/20/16 08/20/16 Range/Units 13:15 15:20 WBC (4.23-9.07) K/mm3 RBC (4.63-6.08) M/mm3 Hgb (13.7-17.5) gm/L Hct (40.1-51.0) % MCV (79.0-92.2) fl MCH (25.7-32.2) pg MCHC (32.2-35.5) g/dl RDW Std Deviation (35.1-43.9) fL Plt Count (163-337) K/mm3 MPV (9.4-12.3) fl Neutrophils % (Manual) (40-60) % Band Neutrophils % (0-10) % Lymphocytes % (Manual) (20-40) % Atypical Lymphs % % Monocytes % (Manual) (2-10) % Eosinophils % (Manual) (0.8-7.0) % Basophils % (Manual) (0.2-1.2) Platelet Estimate RBC Morph Comment PT (8.0-13.0) SECONDS INR APTT (22-36) SECONDS Sodium (136-145) mEq/L Potassium (3.5-5.1) mEq/L Chloride (98-107) mEq/L Carbon Dioxide (21-32) mEq/L Anion Gap (5-15) BUN (7-18) mg/dL Creatinine (0.7-1.3) mg/dL Est Cr Clr Drug Dosing mL/min Estimated GFR (MDRD) (>60) mL/min BUN/Creatinine Ratio (14-18) Glucose (83-115) mg/dL Calcium (8.5-10.1) mg/dL Total Bilirubin (0.2-1.0) mg/dL AST (15-37) U/L ALT (16-63) U/L Alkaline Phosphatase (46-116) U/L Troponin I < 0.017 (0.00-0.056) ng/mL C-Reactive Protein (<1.0) mg/dL B-Natriuretic Peptide (0-100) pg/mL Total Protein (6.4-8.2) g/dl Albumin (3.4-5.0) g/dl Globulin gm/dL Albumin/Globulin Ratio (1-2) Urine Color Yellow (Yellow) Urine Appearance Clear (Clear) Urine pH 7.0 (5.0-8.0) Ur Specific [place] 1.015 (1.005-1.030) Urine Protein Negative (Negative) Urine Glucose (UA) Negative (Negative) Urine Ketones Negative (Negative) Urine Occult Blood Negative (Negative) Urine Nitrite Negative (Negative) Urine Bilirubin Negative (Negative) Urine Urobilinogen 0.2 (0.2-1.0) Ur Leukocyte Esterase Negative (Negative) Urine RBC 0-5 (0-5) /hpf Urine WBC 0-5 (0-5) /hpf Ur Epithelial Cells 0-5 (0-5) /hpf Urine Bacteria Few (FEW) /hpf Urine Mucus Not seen (FEW) /hpf Blood Type Gel Antibody Screen Meds: Medications Discontinued Medications Generic Name Dose Route Start Last Admin Trade Name Freq PRN Reason Stop Dose Admin Sodium Chloride 1,000 mls @ 999 mls/hr 08/20/16 13:12 08/20/16 13:42 Normal Saline IV 08/20/16 14:12 999 mls/hr ONETIME ONE Administration Sodium Chloride 500 mls @ 999 mls/hr 08/20/16 15:05 08/20/16 15:00 Normal Saline IV 08/20/16 15:35 999 mls/hr .BOLUS ONE Administration Sodium Chloride 10 ml 08/20/16 13:12 08/20/16 13:42 Saline Flush FLUSH 10 ml ASDIRECTED PRN Administration Keep Vein Open - Radiology Interpretation Free Text/Narrative:: Ct of the head without contrast impression per Dr. Martin: 1. Mild senescent change as noted above. Nothing acute is appreciated on noncontrast head Ct study. - Re-Assessments/Exams Free Text/Narrative Re-Assessment/Exam: 08/20/16 15:02 Labs returned WBC is 7.36 with 3% bands, hgb is 10.2 and plts are 99. Hgb has been 9.9 to 12.2 recently; left hospital in June an hgb of 10.1 sodium is 137, potassium is 3.9 and chloride is 104 anion gap is 11.9, BUN is 35, creatinine is 1.8 glucose is 147 pt is 10.4, INR is 0.96 PTT is 24 Trop < 0.017 CRP <0.2 I reviewed the labs, ekg and imaging with the patient. He is very orthostatic. Will give an additional 500ml bolus. Has received 1L so far. 08/20/16 16:18 UA is negative for leuks, nitrites, glucose and protein. Patient is feeling greatly improved after receiving 1.5L fluid. Able to get up and walk without difficulty. Will discharge home at this time. Discharge instructions as documented. Departure - Departure Time of Disposition: 16:18 Disposition: Home, Self-Care 01 Condition: Fair Clinical Impression: Dehydration - Discharge Information Instructions: Dehydration, Adult, [id number] Referrals: Sathish Yeager MD [Primary Care Provider] - Forms: ED Department Discharge Additional Instructions: Continue with your current plan of care. Rest. Patient drinking plenty of fluids. I recommend drinking a mixture of Gatorade or Powerade and water. Follow-up with your oncologist this week as planned. You may want to discuss orders for IV fluids weekly. Please return to ER if your symptoms change or worsen.
--- NOTE | 2016-08-20 14:11 | CT ---
Head CT Technique: Multiple axial sections through the brain were obtained. Intravenous contrast was not utilized. Comparison: Previous head CT exam of 07/15/16. Findings: Ventricles along with basal cisterns and sulci over the convexities are moderately prominent. Minimal diminished density is noted within the periventricular white matter compatible with small vessel ischemic demyelination change. No other abnormal parenchymal densities are seen. No evidence of intracranial hemorrhage. No midline shift or mass effect is seen. No discrete calvarial abnormality is seen. Mastoid sinuses are clear. Visualized paranasal sinuses are clear. No acute calvarial abnormality is seen. Mild atherosclerotic calcification is seen within the carotid siphon. Impression: 1. Mild senescent change as noted above. Nothing acute is appreciated on noncontrast head CT study. Diagnostic code #2
[2016-08-20] MEDS ORDERED: Sodium Chloride 0.9% 500 ML IV ONE (15:05)
--- NOTE | 2016-08-21 08:03 | CR ---
Chest: Portable view of the chest was obtained. Comparison: Previous chest x-ray of 07/16/16. Increased density is noted within the right upper chest. This is slightly less prominent than on prior exam presumably representing treated and slightly improved neoplasm. Lungs otherwise appear to be clear. Heart size is normal. Tortuous thoracic aorta is seen. Infusion port is seen entering from the left side which is stable. Impression: 1. Slightly diminished density within the right upper chest presumably due to slightly improved neoplasm from treatment. 2. Other incidental findings. Nothing acute is appreciated. Diagnostic code #9
== END 2016-08-20 16:25 | disposition home or self-care (01) ==
LOC: JD.ED 12:14
DX: E86.0 Dehydration (principal); I25.10 Atherosclerotic heart disease of native coronary artery without angina pectoris; E78.00 Pure hypercholesterolemia, unspecified; I25.2 Old myocardial infarction; K21.9 Gastro-esophageal reflux disease without esophagitis; Z86.73 Personal history of transient ischemic attack (TIA), and cerebral infarction without residual deficits; Z90.49 Acquired absence of other specified parts of digestive tract; Z98.49 Cataract extraction status, unspecified eye; Z98.890 Other specified postprocedural states; Z87.891 Personal history of nicotine dependence; Z79.82 Long term (current) use of aspirin; Z79.899 Other long term (current) drug therapy; R06.02 Shortness of breath
CPT/HCPCS: 36415; 70450; 71010; 80053; 81001; 83880; 84484; 85025; 85610; 85730; 86140; 86850; 86900; 86901; 93005; 96360; 96361; 99285; J7040; J7050; 99283

== ENCOUNTER 2016-08-25 13:06 | Emergency (ER) | payer MEDICARE, OTHER ==
[2016-08-25] MEDS ORDERED: Sodium Chloride 0.9% 1,000 ML IV ONE (13:41)
--- NOTE | 2016-08-25 13:42 | EDM.PDOC ---
ED HPI GENERAL MEDICAL PROBLEM - General Chief Complaint: General Stated Complaint: Dehydrated Time Seen by Provider: 08/25/16 13:25 Source of Information: Reports: Patient, Old Records, RN Notes Reviewed History Limitations: Reports: No Limitations - History of Present Illness INITIAL COMMENTS - FREE TEXT/NARRATIVE: 81 year old male presents to the ED with complaints of feeling dehydrated. He feels lightheaded and short of breath. The shortness of breath is not new. Denies chest pain or syncope. He denies abdominal pain, nausea, vomiting or diarrhea. He is drinking clear fluids but feels he is unable to keep up with his fluid requirements. He has a history of lung and prostate cancer. He is currently receiving cancer treatments through [facility] in [place]. He has completed radiation treatments but has one more chemotherapy treatment scheduled for 09/05/16. He's been requiring frequent IV fluids for dehydration over the past week. He was in the ED on 08/20/16 due to severe lightheadedness and dehydration at which time he received 1.5 liters of IV fluids. He decided to come in today before it "got too bad." He does not feel he is as dehydrated as he was on 08/20. He is scheduled at [facility] tomorrow for IV fluids and labs. His PCP is Dr. Rodriguez. - Related Data Allergies Allergy/AdvReac Type Severity Reaction Status Date / Time No Known Allergies Allergy Verified 08/20/16 12:25 Home Meds: Home Meds Aspirin 81 mg PO DAILY 05/31/16 [History] Diltiazem [Cardizem CD] 120 mg PO DAILY 05/31/16 [History] Nitroglycerin [Nitrostat] 0.4 mg SL ASDIRECTED PRN 05/31/16 [History] Pantoprazole Sodium [Protonix] 40 mg PO DAILY 05/31/16 [History] Simvastatin [Zocor] 40 mg PO BEDTIME 05/31/16 [History] Tamsulosin [Flomax] 1 cap PO BID 05/31/16 [History] Apixaban [Eliquis] 2.5 mg PO BID #60 tablet 07/18/16 [Rx] Acetaminophen [Tylenol] 325 - 650 mg PO Q4HR PRN 08/20/16 [History] Albuterol Sulfate [Proair Respiclick] 1 puff INH Q4HR PRN 08/20/16 [History] Benzonatate [Tessalon Perle] 200 mg PO TID PRN 08/20/16 [History] Codeine/Promethazine [Phenergan with Codeine] 5 ml PO BEDTIME PRN 08/20/16 [ History] Dexamethasone 1 tab PO ASDIRECTED 08/20/16 [History] Diphenhyd/Lidocaine/Nystatin [Magic Mouthwash] 10 ml GARGLE BID PRN 08/20/16 [ History] Metoprolol Tartrate [Lopressor] 1.5 tab PO BID 08/20/16 [History] Plant Stanol Zayra [Cholest Off] 1 tab PO ASDIRECTED 08/20/16 [History] Past Medical History HEENT History: Reports: Cataract, Impaired Vision Cardiovascular History: Reports: CAD, High Cholesterol, OH, Stents Other Cardiovascular History: OH in 2015, arteriosclerotic heart disease Respiratory History: Reports: SOB, Other (See Below) Other Respiratory History: Right upper lobe lung mass, bronchoscopy Gastrointestinal History: Reports: GERD Genitourinary History: Reports: Other (See Below) Other Genitourinary History: "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" [employer] History: Reports: None Musculoskeletal History: Reports: None Neurological 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 Psychiatric History: Reports: None Endocrine/Metabolic History: Reports: None Hematologic History: Reports: None Immunologic History: Reports: None Oncologic (Cancer) History: Reports: Lung, Prostate Dermatologic History: Reports: None - Infectious Disease History Infectious Disease History: Reports: C-Difficile, Measles, Mumps - Past Surgical History HEENT Surgical History: Reports: Adenoidectomy, Cataract Surgery, Tonsillectomy GI Surgical History: Reports: Colonoscopy Social & Family History - Family History Family Medical History: Noncontributory - Tobacco Use Smoking Status *Q: Former Smoker Years of Tobacco use: 32 Used Tobacco, but Quit: Yes Month Tobacco Last Used: 15 Second Hand Smoke Exposure: No - Caffeine Use Caffeine Use: Reports: None - Recreational Drug Use Recreational Drug Use: No ED ROS GENERAL - Review of Systems Review Of Systems: See Below Constitutional: Reports: No Symptoms. Denies: Fever, Chills, Diaphoresis, Decreased Appetite Respiratory: Reports: Shortness of Breath. Denies: Cough Cardiovascular: Reports: Dyspnea on Exertion, Lightheadedness. Denies: Chest Pain, Edema, Syncope GI/Abdominal: Reports: No Symptoms. Denies: Abdominal Pain, Diarrhea, Nausea, Vomiting ED EXAM, GENERAL - Physical Exam Exam: See Below Exam Limited By: No Limitations General Appearance: Alert, WD/WN, No Apparent Distress Respiratory/Chest: No Respiratory Distress, Lungs Clear, Normal Breath Sounds, No Accessory Muscle Use, Chest Non-Tender Cardiovascular: Normal Peripheral Pulses, Regular Rate, Rhythm, No Murmur GI/Abdominal: Normal Bowel Sounds, Soft, Non-Tender Neurological: Alert, Oriented, Normal Cognition Skin Exam: Warm, Dry, Intact Course - Vital Signs Last Recorded V/S: Last Vital Signs Temp 98.3 F 08/25/16 19:40 Pulse 79 08/25/16 19:40 Resp 20 08/25/16 19:40 BP 130/69 08/25/16 19:40 Pulse Ox 98 08/25/16 19:40 Orthostatic Blood Pressure [ 92/61 Standing] Orthostatic Blood Pressure [ 111/69 Sitting] Orthostatic Blood Pressure [ 116/68 Supine] - Orders/Labs/Meds Orders: Active Orders 24 hr Category Date Time Status Implanted Port Access [RC] ONETIME Care 08/25/16 13:40 Active Orthostatic Vital Signs [RC] ASDIRECTED Care 08/25/16 13:42 Active Transfuse PRBC [Transfuse Red Blood Cells] [COMM] Stat Oth 08/25/16 15:58 Ordered Labs: Laboratory Tests 08/25/16 08/25/16 08/25/16 Range/Units 14:00 14:00 14:00 WBC 12.32 H (4.23-9.07) K/mm3 RBC 2.67 L (4.63-6.08) M/mm3 Hgb 8.7 L (13.7-17.5) gm/L Hct 27.2 L (40.1-51.0) % MCV 101.9 H (79.0-92.2) fl MCH 32.6 H (25.7-32.2) pg MCHC 32.0 L (32.2-35.5) g/dl RDW Std Deviation 67.9 H (35.1-43.9) fL Plt Count 87 L (163-337) K/mm3 MPV 9.3 L (9.4-12.3) fl Neut % (Auto) 71.0 H (34.0-67.9) % Lymph % (Auto) 10.1 L (21.8-53.1) % [place] % (Auto) 11.6 (5.3-12.2) % Eos % (Auto) 0.8 (0.8-7.0) Baso % (Auto) 0.4 (0.1-1.2) % Neut # (Auto) 8.75 H (1.78-5.38) K/mm3 Lymph # (Auto) 1.24 L (1.32-3.57) K/mm3 [place] # (Auto) 1.43 H (0.30-0.82) K/mm3 Eos # (Auto) 0.10 (0.04-0.54) K/mm3 Baso # (Auto) 0.05 (0.01-0.08) K/mm3 Manual Slide Review Abnormal smear Sodium 141 (136-145) mEq/L Potassium 3.7 (3.5-5.1) mEq/L Chloride 107 (98-107) mEq/L Carbon Dioxide 25 (21-32) mEq/L Anion Gap 12.7 (5-15) BUN 18 (7-18) mg/dL Creatinine 1.9 H (0.7-1.3) mg/dL Est Cr Clr Drug Dosing 30.00 mL/min Estimated GFR (MDRD) 34 (>60) mL/min BUN/Creatinine Ratio 9.5 L (14-18) Glucose 118 H (83-115) mg/dL Calcium 8.0 L (8.5-10.1) mg/dL Total Bilirubin 0.2 (0.2-1.0) mg/dL AST 22 (15-37) U/L ALT 24 (16-63) U/L Alkaline Phosphatase 94 (46-116) U/L Total Protein 5.8 L (6.4-8.2) g/dl Albumin 2.6 L (3.4-5.0) g/dl Globulin 3.2 gm/dL Albumin/Globulin Ratio 0.8 L (1-2) Blood Type O POSITIVE Gel Antibody Screen Negative Crossmatch See Detail Meds: Medications Discontinued Medications Generic Name Dose Route Start Last Admin Trade Name Freq PRN Reason Stop Dose Admin Sodium Chloride 1,000 mls @ 999 mls/hr 08/25/16 13:41 08/25/16 14:05 Normal Saline IV 08/25/16 14:41 999 mls/hr ONETIME ONE Administration Sodium Chloride Confirm 08/25/16 16:46 Normal Saline Administered 08/25/16 16:47 Dose 500 mls @ as directed .ROUTE .K-MED ONE - Re-Assessments/Exams Free Text/Narrative Re-Assessment/Exam: Orthostatic vital signs obtained upon arrival and are positive for orthostatic hypotension. IV placed. IV fluids 1 liter ordered. Will obtain basic labs. 08/25/16 1430 First liter of fluids infused. Patient remains orthostatic but symptoms have improved. CBC reveals an elevated WBC of 12,000. H&H is low at 8.7 and 27. This is a significant change since his last visit on 08/20/16 at which time his hemoglobin was 10.2. Discussed this with Dr. Pappas. Due to the significant, fast drop in his hemoglobin and orthostatic hypotension, we feel that the patient would benefit from a blood transfusion. Will transfuse 2 units PRBCs. 213 Patient has had an uneventful stay in the ED. Two units PRBCs infused with no complications. He was instructed to call his Oncologist in the morning and update them. Encouraged to return if symptoms worsen. Instructed on s/s of pulmonary edema post infusion. Repeat orthostatic vitals have improved and patient is asymptomatic with position changes. Will discharge home. Departure - Departure Time of Disposition: 21:46 Disposition: Home, Self-Care 01 Condition: Good Clinical Impression: Orthostatic hypotension Anemia Qualifiers: Anemia type: unspecified type Qualified Code(s): D64.9 - Anemia, unspecified Lung cancer Qualifiers: Laterality: right Lung location: unspecified part of lung Qualified Code(s): C34.91 - Malignant neoplasm of unspecified part of right bronchus or lung - Discharge Information Instructions: Orthostatic Hypotension, Lung Cancer Referrals: Sathish Yeager MD [Primary Care Provider] - Forms: ED Department Discharge Additional Instructions: Call your Oncologist tomorrow morning and update them regarding your anemia ( low blood counts) and IV fluids today No IV fluids tomorrow Return to ER with any worsening shortness of breath or lightheadedness Follow-up with Dr. Ho as needed - My Orders Last 24 Hours: My Active Orders 08/25/16 13:40 Implanted Port Access [RC] ONETIME 08/25/16 13:42 Orthostatic Vital Signs [RC] ASDIRECTED 08/25/16 15:58 Transfuse PRBC [Transfuse Red Blood Cells] [COMM] Stat - Assessment/Plan Last 24 Hours: My Active Orders 08/25/16 13:40 Implanted Port Access [RC] ONETIME 08/25/16 13:42 Orthostatic Vital Signs [RC] ASDIRECTED 08/25/16 15:58 Transfuse PRBC [Transfuse Red Blood Cells] [COMM] Stat
[2016-08-25] MEDS ORDERED: Sodium Chloride 0.9% 500 ML ONE (16:46)
[2016-08-25 19:41] VITALS: BP 130/69
== END 2016-08-25 22:00 | disposition home or self-care (01) ==
LOC: SUPCPDRO 13:06 → JD.ED 13:06
DX: I95.1 Orthostatic hypotension (principal); D64.9 Anemia, unspecified; C34.91 Malignant neoplasm of unspecified part of right bronchus or lung; I25.10 Atherosclerotic heart disease of native coronary artery without angina pectoris; I25.2 Old myocardial infarction; E78.00 Pure hypercholesterolemia, unspecified; K21.9 Gastro-esophageal reflux disease without esophagitis; Z79.82 Long term (current) use of aspirin; Z79.899 Other long term (current) drug therapy; Z86.73 Personal history of transient ischemic attack (TIA), and cerebral infarction without residual deficits; Z87.891 Personal history of nicotine dependence
CPT/HCPCS: 36415; 36430; 36569; 80053; 85025; 86850; 86900; 86901; 86922; 96360; 99284; J7040; P9016; 99283

== ENCOUNTER 2016-12-03 10:32 | Inpatient (IN) | payer MEDICARE, OTHER ==
[2016-12-03] MEDS ORDERED: Dextrose 5%-0.9% NaCl 1,000 ML IV SCH ×2 (10:45→20:00)
--- NOTE | 2016-12-03 10:48 | EDM.PDOC ---
ED HPI GENERAL MEDICAL PROBLEM - General Chief Complaint: Neurological Problem Stated Complaint: [facility] Time Seen by Provider: 12/03/16 10:41 Source of Information: Reports: Patient, EMS, Family () History Limitations: Reports: No Limitations - History of Present Illness INITIAL COMMENTS - FREE TEXT/NARRATIVE: 81-year-old gentleman brought to the ED per ambulance after a fall at home again this morning. states that he was walking with his walker and seemed to be her towards the right side and fell. He is too weak to get up from the floor on his own volition or with her help. Emesis was therefore summoned. By history the patient has fallen on 5 occasions in the last 2-1/2 weeks. He is just getting over multiple bruises and abrasions to his forehead that occurred 2 weeks ago. Of note the patient is on Eliquis for atrial fibrillation. Poor oral intake and poor appetite. Continues to take medications for blood pressure and atrial fib rate control. Is losing weight. Did not take any of his normal meds today he had. He was on a high-dose steroid intake up to 60 mg of prednisone today would seem to perk him up improve his mobility and his appetite but more recently has medication is been reduced to dexamethasone 4 mg once daily. His reports he seems to have declined physically since that time.No reported diarrhea. 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 Right side weaker than the left. 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 Onset: Today (Fell again this morning within the last hour.) Onset Date: 12/03/16 (Fell yesterday and 4 days ago and a week ago.) Onset Time: 09:40 Duration: Minutes: Location: Reports: Head, Chest Quality: Reports: Ache, Throbbing (Headache), Other Severity: Moderate Improves with: Reports: None Worsens with: Reports: Movement Context: Reports: Activity, Trauma (Fall at home). Denies: Exercise, Lifting ( Tripped and fell while walking with his walker.), Sick Contact Associated Symptoms: Reports: Cough, cough w sputum (Productive sounding cough.) , Headaches, Loss of Appetite, Malaise, Shortness of Breath, Weakness ( Generalized.). Denies: Chest Pain, Diaphoresis, Fever/Chills, Rash, Seizure Treatments BUILDING DISMANTLER: Reports: Other (see below) (None.) Headache Pain Score (Numeric/FACES): 4 Back Pain Score (Numeric/FACES): 4 - Related Data Allergies Allergy/AdvReac Type Severity Reaction Status Date / Time No Known Allergies Allergy Verified 12/03/16 10:37 Home Meds: Home Meds Diltiazem [Cardizem CD] 120 mg PO DAILY 05/31/16 [History] Nitroglycerin [Nitrostat] 0.4 mg SL ASDIRECTED PRN 05/31/16 [History] Pantoprazole Sodium [Protonix] 40 mg PO DAILY 05/31/16 [History] Tamsulosin [Flomax] 0.4 mg PO BID 05/31/16 [History] Apixaban [Eliquis] 2.5 mg PO BID #60 tablet 07/18/16 [Rx] Acetaminophen [Tylenol] 325 - 650 mg PO Q4HR PRN 08/20/16 [History] Albuterol Sulfate [Proair Respiclick] 1 puff INH Q4HR PRN 08/20/16 [History] Benzonatate [Tessalon Perle] 200 mg PO TID PRN 08/20/16 [History] Codeine/Promethazine [Phenergan with Codeine] 5 ml PO BEDTIME PRN 08/20/16 [ History] Metoprolol Tartrate [Lopressor] 37.5 mg PO BID 08/20/16 [History] Plant Stanol Zayra [Cholest Off] 2 tab PO BID 08/20/16 [History] Aspirin [Ecotrin] 81 mg PO DAILY 12/03/16 [History] Megestrol Acetate 480 ml PO DAILY 12/03/16 [History] Ondansetron [Zofran ODT] 4 mg PO Q4H PRN 12/03/16 [History] Prednisone [IJD: predniSONE] 20 mg PO DAILY 12/03/16 [History] Rosuvastatin Calcium [Crestor] 20 mg PO DAILY 12/03/16 [History] Past Medical History HEENT History: Reports: Cataract, Impaired Vision Cardiovascular History: Reports: CAD, High Cholesterol, GA, Stents Other Cardiovascular History: GA in 2015, arteriosclerotic heart disease Respiratory History: Reports: SOB, Other (See Below) Other Respiratory History: Right upper lobe lung mass, bronchoscopy Gastrointestinal History: Reports: GERD, Other (See Below) Genitourinary History: Reports: BPH, Chronic Renal Insuffiency, Other (See Below ) Other Genitourinary History: "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" Musculoskeletal History: Reports: Back Pain, Chronic, Osteoarthritis Neurological 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 Psychiatric History: Reports: None Endocrine/Metabolic History: Reports: None Hematologic History: Reports: None Immunologic History: Reports: None Oncologic (Cancer) History: Reports: Lung, Prostate Dermatologic History: Reports: None - Infectious Disease History Infectious Disease History: Reports: C-Difficile, Measles, Mumps - Past Surgical History HEENT Surgical History: Reports: Adenoidectomy, Cataract Surgery, Tonsillectomy GI Surgical History: Reports: Colonoscopy Social & Family History - Family History Family Medical History: Noncontributory - Tobacco Use Smoking Status *Q: Former Smoker Years of Tobacco use: 32 Used Tobacco, but Quit: Yes Month Tobacco Last Used: 15 Second Hand Smoke Exposure: No - Caffeine Use Caffeine Use: Reports: None - Recreational Drug Use Recreational Drug Use: No - Living Situation & Occupation Living situation: Reports: , with Spouse Occupation: Retired ED ROS GENERAL - Review of Systems Review Of Systems: See Below Constitutional: Reports: Malaise, Weakness, Fatigue, Decreased Appetite, Weight Loss. Denies: Fever, Chills HEENT: Reports: Other (Impaired vision.) Respiratory: Reports: Shortness of Breath, Wheezing (With productive cough and wheezing.), Cough, Sputum. Denies: Hemoptysis Cardiovascular: Reports: Blood Pressure Problem, Dyspnea on Exertion, Lightheadedness. Denies: Chest Pain, Claudication, Edema, Orthopnea ( Hypertension) Endocrine: Reports: Fatigue (Severe) GI/Abdominal: Reports: Constipation : Reports: Frequency, Other (Nocturia 4) Musculoskeletal: Reports: Shoulder Pain, Back Pain, Joint Pain (Knees and hips at times) Skin: Reports: Bruising (Bruises very easily due to being on Eliquis.) Neurological: Reports: Dizziness, Difficulty Walking (Walks with aid of a walker since his CVA.), Weakness, Gait Disturbance. Denies: Paresthesia, Pre- Existing Deficit, Syncope, Tingling, Change in Speech Psychiatric: Reports: No Symptoms Hematologic/Lymphatic: Reports: No Symptoms Immunologic: Reports: No Symptoms ED EXAM, NEURO - Physical Exam Exam: See Below Exam Limited By: Other ( provides most of the history. He reports that he has a headache. He is alert) General Appearance: Alert, Mild Distress, Other (Chronically ill.) Eye Exam: Bilateral Eye: Normal Fundi, Other (Mild pallor bilaterally) Nose: Normal Inspection, Normal Mucosa Throat/Mouth: Normal Inspection, Other (Lips are dry and chapped. Tongue is dry and coated.) Head Exam: Other (He has no obvious hematomas or open injuries from today's fall. He has healing abrasions and scabs on his mid forehead and vertex of the scalp frontally.) Neck: Normal Inspection, Non-Tender, Full Range of Motion. No: Lymphadenopathy (L), Lymphadenopathy (R) Respiratory/Chest: Respiratory Distress (Tachypnea at rest with O2 sats of 92% on room air.), Rales (Right base. Rales left lower), Rhonchi (Appreciated in the posterior aspect of the left lung field.), Wheezing Cardiovascular: Regular Rate, Rhythm, No Edema, No Gallop, No Murmur, No Rub. No: Normal Peripheral Pulses GI/Abdominal: Normal Bowel Sounds, Soft, Non-Tender, No Organomegaly, No Abnormal Bruit, No Mass, Pelvis Stable Neurological: Alert, Normal Mood/Affect, Normal Dorsiflexion, CN II-XII Intact, Oriented x 3, Other (Ataxic on finger to nose assessment on the right side.). No: Normal Gait Back Exam: Normal Inspection, Full Range of Motion, Other (Painful to set him up. However there is no open injuries or bradycardia abrasions or contusions to his spine in the spinous processes are well aligned.) Extremities: Normal Inspection, Normal Range of Motion, Non-Tender, No Pedal Edema, Other (No obvious injuries to his knees hips or elbows or wrists.) Psychiatric: Flat Affect Skin Exam: Warm, Dry, Intact, Normal Color, No Rash EKG INTERPRETATION EKG Date: 12/03/16 Time: 10:50 Rhythm: NSR Rate (Beats/Min): 85 [place]: LAD-Left [place] Deviation (-70 with a left anterior fascicular block pattern.) P-Wave: Present QRS: Other (Early R-wave transition with poor R-wave progression and delayed transition.) ST-T: Normal QT: Normal EKG Interpretation Comments: Abnormal ECG Course - Vital Signs Last Recorded V/S: Last Vital Signs Temp 36.2 C 12/03/16 10:32 Pulse 90 12/03/16 10:32 Resp 24 H 12/03/16 10:32 BP 169/84 H 12/03/16 10:32 Pulse Ox 93 L 12/03/16 10:32 - Orders/Labs/Meds Orders: Active Orders 24 hr Category Date Time Status EKG Documentation Completion [RC] STAT Care 12/03/16 10:42 Active Orthostatic Vital Signs [RC] ASDIRECTED Care 12/03/16 10:45 Active Oxygen Therapy [RC] ASDIRECTED Care 12/03/16 10:42 Active CULTURE BLOOD [BC] Stat Lab 12/03/16 11:10 Received CULTURE BLOOD [BC] Stat Lab 12/03/16 11:30 Received CULTURE SPUTUM + SMEAR [RM] Stat Lab 12/03/16 14:10 Results URINALYSIS W/MICROSCOPIC [UA W/MICROSCOPIC] [URIN] Stat Lab 12/03/16 10:43 Uncollected Dextrose 5%-0.9% NaCl [Dextrose 5%-Normal Saline] 1,000 Med 12/03/16 10:45 Active ml IV ASDIRECTED Blood Culture x2 Reflex Set [OM.PC] Stat Oth 12/03/16 10:43 Ordered Medication Orders Dextrose/Sodium Chloride (Dextrose 5%-Normal Saline) 1,000 mls @ 150 mls/hr IV ASDIRECTED JERRY Last Admin: 12/03/16 11:16 Dose: 150 mls/hr Labs: Laboratory Tests 12/03/16 12/03/16 12/03/16 Range/Units 11:10 11:10 11:10 WBC 8.15 (4.23-9.07) K/mm3 RBC 4.29 L (4.63-6.08) M/mm3 Hgb 13.7 (13.7-17.5) gm/L Hct 41.4 (40.1-51.0) % MCV 96.5 H (79.0-92.2) fl MCH 31.9 (25.7-32.2) pg MCHC 33.1 (32.2-35.5) g/dl RDW Std Deviation 50.6 H (35.1-43.9) fL Plt Count 123 L (163-337) K/mm3 MPV 8.9 L (9.4-12.3) fl Neutrophils % (Manual) 71 H (40-60) % Band Neutrophils % 0 (0-10) % Lymphocytes % (Manual) 26 (20-40) % Atypical Lymphs % 0 % Monocytes % (Manual) 3 (2-10) % Eosinophils % (Manual) 0 L (0.8-7.0) % Basophils % (Manual) 0 L (0.2-1.2) Platelet Estimate Adequate RBC Morph Comment Normal ESR 47 H (0-15) mm/hr Sodium 139 (136-145) mEq/L Potassium 3.4 L (3.5-5.1) mEq/L Chloride 105 (98-107) mEq/L Carbon Dioxide 23 (21-32) mEq/L Anion Gap 14.4 (5-15) BUN 39 H (7-18) mg/dL Creatinine 1.7 H (0.7-1.3) mg/dL Est Cr Clr Drug Dosing 33.53 mL/min Estimated GFR (MDRD) 39 (>60) mL/min BUN/Creatinine Ratio 22.9 H (14-18) Glucose 102 (83-115) mg/dL Calcium 8.8 (8.5-10.1) mg/dL Magnesium 2.1 (1.8-2.4) mg/dl Total Bilirubin 0.7 (0.2-1.0) mg/dL AST 12 L (15-37) U/L ALT 19 (16-63) U/L Alkaline Phosphatase 74 (46-116) U/L Creatine Kinase 15 L (39-308) U/L CK-MB (CK-2) < 0.5 (0-3.6) ng/ml Troponin I 0.278 H* (0.00-0.056) ng/mL C-Reactive Protein 7.7 H* (<1.0) mg/dL NT-Pro-B Natriuret Pep 283 (0-450) pg/mL Total Protein 6.5 (6.4-8.2) g/dl Albumin 2.8 L (3.4-5.0) g/dl Globulin 3.7 gm/dL Albumin/Globulin Ratio 0.8 L (1-2) TSH 3rd Generation 3.473 (0.358-3.74) uIU/mL Meds: Medications Generic Name Dose Route Start Last Admin Trade Name Kristi PRN Reason Stop Dose Admin Dextrose/Sodium Chloride 1,000 mls @ 150 mls/hr 12/03/16 10:45 12/03/16 11:16 Dextrose 5%-Normal Saline IV 150 mls/hr ASDIRECTED [facility] Administration - Radiology Interpretation Free Text/Narrative:: 81-year-old male presents to the ED after a recurrent fall at home this morning. He has increasing weakness due to poor oral intake and I suspect a component of orthostatic hypotension. He has a right upper lobe or lung mass suggestivel of lung cancer and his health has been deteriorating for several months. Has fallen 5 times in the last 2 and half weeks. Once again hit his head today pretty hard. No open wounds are hematomas forming yet. Patient is also on Eliquis. Previous CVA 2 with right-sided weakness. Usually walks with aid of a walker. Continues to have a productive sounding cough. He reports no obvious hemoptysis. Patient appears to be in poor condition due to chronic illness. Plan routine labs. IV D5 normal saline at 150 mils per hour. He has a known history of coronary disease with stents placed. He is in sinus rhythm at this time. ECG shows sinus rhythm at 85/m with the occasional P ACEs. There is early R-wave transition. Left axis deviation of -70 with a left anterior fascicular block pattern. There is poor R-wave progression with late transition. QT is normal. Plan routine labs to include cardiac markers serum magnesium TSH. He does appear volume depleted but I will be cautious with fluids as he has a history of congestive failure. - Re-Assessments/Exams Free Text/Narrative Re-Assessment/Exam: 12/03/16 11:49 CT scan of the brain is been completed. It reveals multiple intracranial bleeds. All of these seem to be intraparenchymal hemorrhages likely from falls. There is one area of blood being seen next to the cerebellar tentorium which could represent a small subdural. The others are scattered and are mostly cortical.. 12/03/16 12:28 labs are back revealing a white count of 8.15 with 71% neutrophils no bands hemoglobin is 13.7 hematocrit of 41.4 platelets 223,000. MCV mildly elevated at 96.4. Sedimentation rate is elevated at 47. Sodium is 139 potassium is 3.4 i.e. a little low anion gap is 14.4 creatinine is 1.7 with a BUN of 39 EGFR is 39. Magnesium is good at 2.1. AST is 12 T is 19 troponin is elevated at 0.278 with a CK-MB fraction of less than 0.5. This is suspicious for a recent myocardial infarction CRP is 7.7 TSH is 3.47 BNP is only 283. I had ordered a chest x-ray but it is not yet done. Apparently has a right upper lobar lung mass which apparently is a known malignancy. 12/03/16 12:53 chest x-ray done portably reveals an infiltrate right upper lobe compatible with a neoplastic mass. Is also a linear infiltrate that travels from the medial heart border laterally below the infiltrate likely plate atelectasis although pneumonia cannot be ruled out. 12/03/16 13:07 on speaking with the she indicates that they have recently seen the oncologist and is quite happy with the way the tumor seems to respond to the chemotherapy. Therapy and radiotherapy are both completed. Patient suffers malnutrition is he can't say states all food tastes bad although he is taking fluids. He did get 500 mils of crystalloid intravenously through his port yesterday at the infusion clinic usually gets a liter. I therefore spoke with Dr. Orona since the patient's was not able to decide whether or not [place] cardiology services would be required or needed. Neurological hemorrhages will settle with time but we don't solve any the problems in terms that he so weak he keeps falling mostly for malnutrition and previous CVA. He likely needs to stay on Eliquis 2.5 mg twice daily as he is at high risk for development of DVT or repeat stroke. Decision made with Dr. Orona and myself to call the clinical social worker to visit with the family and see where the red in terms of options for care either home care hospice etc. The concern would be whether he would be in the hospital longer than 96 hour cutoff for critical care hospitals. 12/03/16 15:05 after jenni discussion with the family and clinical social worker Dr. Orona will accept the patient to the med surgery floor. He will be admitted and surgery on telemetry. Departure - Departure Time of Disposition: 16:00 Disposition: Admitted As Inpatient 67 Condition: Serious Clinical Impression: Elevated troponin I measurement, Non-STEMI (non-ST elevated myocardial infarction), Fall as cause of accidental injury at home as place of occurrence, Brain bleed Carcinoma, lung Qualifiers: Laterality: right Qualified Code(s): C34.91 - Malignant neoplasm of unspecified part of right bronchus or lung - Discharge Information - My Orders Last 24 Hours: My Active Orders 12/03/16 10:42 EKG Documentation Completion [RC] STAT Oxygen Therapy [RC] ASDIRECTED 12/03/16 10:43 URINALYSIS W/MICROSCOPIC [UA W/MICROSCOPIC] [URIN] Stat Blood Culture x2 Reflex Set [OM.PC] Stat 12/03/16 10:45 Orthostatic Vital Signs [RC] ASDIRECTED Dextrose 5%-0.9% NaCl [Dextrose 5%-Normal Saline] 1,000 ml IV ASDIRECTED 12/03/16 11:10 CULTURE BLOOD [BC] Stat 12/03/16 11:30 CULTURE BLOOD [BC] Stat 12/03/16 14:10 CULTURE SPUTUM + SMEAR [RM] Stat - Assessment/Plan Last 24 Hours: My Active Orders 12/03/16 10:42 EKG Documentation Completion [RC] STAT Oxygen Therapy [RC] ASDIRECTED 12/03/16 10:43 URINALYSIS W/MICROSCOPIC [UA W/MICROSCOPIC] [URIN] Stat Blood Culture x2 Reflex Set [OM.PC] Stat 12/03/16 10:45 Orthostatic Vital Signs [RC] ASDIRECTED Dextrose 5%-0.9% NaCl [Dextrose 5%-Normal Saline] 1,000 ml IV ASDIRECTED 12/03/16 11:10 CULTURE BLOOD [BC] Stat 12/03/16 11:30 CULTURE BLOOD [BC] Stat 12/03/16 14:10 CULTURE SPUTUM + SMEAR [RM] Stat
--- NOTE | 2016-12-03 11:49 | CT ---
Head CT Technique: Multiple axial sections through the brain were obtained. Intravenous contrast was not utilized. Comparison: Previous head CT study of 08/20/16. Findings: Small scattered areas of mostly cortical hemorrhage are seen on both sides of the brain. There may be a small subdural hematoma along the cerebellar tentorium. No larger areas of hemorrhage are seen. No midline shift or mass effect is seen. Ventricles along with basal cisterns and sulci over convexities are moderately prominent. Minimal diminished density within the periventricular white matter is seen compatible with small vessel ischemic demyelination change. Atherosclerotic calcification is seen with carotid siphon and within the vertebral vessels. Bone window settings were reviewed which shows no acute calvarial abnormality. Impression: 1. Small scattered areas of acute hemorrhage on both sides of the brain. These are mostly cortical in location. There is blood being seen next to the cerebellar tentorium which could represent small subdural hematoma. 2. Other senescent change as noted above which is stable. Diagnostic code #5
--- NOTE | 2016-12-03 13:02 | CR ---
Chest: Portable view of the chest was obtained. Comparison: Previous chest x-ray of 07/16/16. Areas of increased density are seen within the right lung. Some of this appears mass-like next to the mediastinum within the right upper lung. Other areas appear to be more like atelectasis. Infusion port is seen entering from the left side. Left hemidiaphragm is poorly seen most likely representing slight atelectasis. Heart size is slightly enlarged. Tortuous thoracic aorta is seen. Scoliosis and degenerative change is seen within the spine. Impression: 1. Findings as noted above. If patient's creatinine is satisfactory, contrast-enhanced chest CT would be helpful to further evaluate. Diagnostic code #3
--- NOTE | 2016-12-03 18:38 | PCM.HP ---
H&P History of Present Illness - General Date of Service: 12/03/16 Admit Problem/Dx: Admission Diagnosis/Problem Admission Diagnosis/Problem Fall as cause of accidental injury in home as place of occurrence Source of Information: Provider History Limitations: Reports: No Limitations - History of Present Illness Initial Comments - Free Text/Narative: 81 year old male with frequent falls, is on Eliquis for A fib. Has had a hx of CVA with right sided deficits. CT of brain with hemorrhage, MRI will be performed. patient presents with generalized weakness as well as falling to right. He requires a walker for ambulation. The patient denies LOC, has superficial facial abrasions noted. Reportedly he has difficulty seeing with change in peripheral vision, this is chronic. There has been a change in appetite and weight loss. The CXR documents right sided mass but PNA can not be excluded. The patient has CKD, III; he will be admitted to [facility] [place] checks. Onset of Symptoms: Reports: Unknown/Unsure Duration of Symptoms: Reports: Day(s):, Getting Worse Location: Reports: Generalized Quality: Reports: Same as Previous Episode Severity: Moderate Improves with: Reports: Medication Worsens with: Reports: None Associated Symptoms: Reports: cough w sputum, Loss of Appetite, Malaise, Weakness Headache Pain Score (Numeric/FACES): 4 Back Pain Score (Numeric/FACES): 4 - Related Data Allergies/Adverse Reactions: Allergies Allergy/AdvReac Type Severity Reaction Status Date / Time No Known Allergies Allergy Verified 12/03/16 10:37 Home Medications: Home Meds Diltiazem [Cardizem CD] 120 mg PO DAILY 05/31/16 [History] Nitroglycerin [Nitrostat] 0.4 mg SL ASDIRECTED PRN 05/31/16 [History] Pantoprazole Sodium [Protonix] 40 mg PO DAILY 05/31/16 [History] Tamsulosin [Flomax] 0.4 mg PO BID 05/31/16 [History] Apixaban [Eliquis] 2.5 mg PO BID #60 tablet 07/18/16 [Rx] Acetaminophen [Tylenol] 325 - 650 mg PO Q4HR PRN 08/20/16 [History] Albuterol Sulfate [Proair Respiclick] 1 puff INH Q4HR PRN 08/20/16 [History] Benzonatate [Tessalon Perle] 200 mg PO TID PRN 08/20/16 [History] Codeine/Promethazine [Phenergan with Codeine] 5 ml PO BEDTIME PRN 08/20/16 [ History] Metoprolol Tartrate [Lopressor] 37.5 mg PO BID 08/20/16 [History] Plant Stanol Zayra [Cholest Off] 2 tab PO BID 08/20/16 [History] Aspirin [Ecotrin] 81 mg PO DAILY 12/03/16 [History] Megestrol Acetate 400 mg PO DAILY 12/03/16 [History] Ondansetron [Zofran ODT] 4 mg PO Q4H PRN 12/03/16 [History] Prednisone [IJD: predniSONE] 60 mg PO DAILY 12/03/16 [History] Rosuvastatin Calcium [Crestor] 20 mg PO DAILY 12/03/16 [History] Past Medical History HEENT History: Reports: Cataract, Impaired Vision Other HEENT History: 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 Cardiovascular History: Reports: CAD, High Cholesterol, W[place], Stents Other Cardiovascular History: [place] in 2015, arteriosclerotic heart disease Respiratory History: Reports: SOB, Other (See Below) Other Respiratory History: Right upper lobe lung mass, bronchoscopy Gastrointestinal History: Reports: GERD, Other (See Below) Genitourinary History: Reports: BPH, Chronic Renal Insuffiency, Other (See Below ) Other Genitourinary History: "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" [employer] History: Reports: None Musculoskeletal History: Reports: Back Pain, Chronic, Osteoarthritis Neurological 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 Psychiatric History: Reports: None Endocrine/Metabolic History: Reports: None Hematologic History: Reports: None Immunologic History: Reports: None Oncologic (Cancer) History: Reports: Lung, Prostate Dermatologic History: Reports: None - Infectious Disease History Infectious Disease History: Reports: C-Difficile, Measles, Mumps - Past Surgical History HEENT Surgical History: Reports: Adenoidectomy, Cataract Surgery, Tonsillectomy GI Surgical History: Reports: Colonoscopy Social & Family History - Family History Family Medical History: Noncontributory - Tobacco Use Smoking Status *Q: Former Smoker Years of Tobacco use: 32 Packs/Tins Daily: 0.5 Used Tobacco, but Quit: Yes Month Tobacco Last Used: 15 Second Hand Smoke Exposure: No - Caffeine Use Caffeine Use: Reports: None Other Caffeine Use: rarely. - Recreational Drug Use Recreational Drug Use: No - Living Situation & Occupation Living situation: Reports: , with Spouse Occupation: Retired H&P Review of Systems - Review of Systems: Review Of Systems: See Below General: Reports: Malaise, Weakness, Fatigue, Decreased Appetite, Weight Loss HEENT: Reports: No Symptoms Pulmonary: Reports: Shortness of Breath, Wheezing Cardiovascular: Reports: Dyspnea on Exertion, Lightheadedness Gastrointestinal: Reports: Constipation Genitourinary: Reports: Frequency Musculoskeletal: Reports: Shoulder Pain, Back Pain, Joint Pain Skin: Reports: Other (abrasions) Psychiatric: Reports: No Symptoms Neurological: Reports: No Symptoms Hematologic/Lymphatic: Reports: No Symptoms Immunologic: Reports: No Symptoms Exam - Exam Exam: See Below - Vital Signs Vital Signs: Last Vital Signs Temp 36.2 C 12/03/16 10:32 Pulse 90 12/03/16 10:32 Resp 24 H 12/03/16 10:32 BP 169/84 H 12/03/16 10:32 Pulse Ox 93 L 12/03/16 10:32 Weight: 68.748 kg - Exam Quality Assessment: DVT Prophylaxis General: Alert, Oriented, Cooperative HEENT: EOMI, Nares Patent, Normal Nasal Septum, Pupils Equal, Pupils Reactive, PERRLA Neck: Supple, Trachea Midline Lungs: Normal Respiratory Effort Cardiovascular: Regular Rate, Regular Rhythm GI/Abdominal Exam: Normal Bowel Sounds, Soft, Non-Tender, No Organomegaly, No Distention (Male) Exam: Deferred Rectal (Males) Exam: Deferred Back Exam: Normal Inspection Extremities: Normal Inspection Skin: Warm Neurological: Cranial Nerves Intact Neuro Extensive - Mental Status: Alert, Oriented x3 Neuro Extensive - Motor, Sensory, Reflexes: CN II-XII Intact Psychiatric: Alert, Normal Affect, Normal Mood - Patient Data Result Diagrams: 12/03/16 11:10 12/05/16 05:26 *Q Meaningful Use (ADM) - VTE *Q VTE Criteria *Q: - Stroke *Q Stroke Criteria *Q: - AMI *Q AMI Criteria *Q: - Problem List (1) Carcinoma, lung SNOMED Code(s): 999637252 ICD Code: C34.90 - MALIGNANT NEOPLASM OF UNSP PART OF UNSP BRONCHUS OR LUNG Status: Acute Current Visit: Yes Qualifiers: Laterality: right Qualified Code(s): C34.91 - Malignant neoplasm of unspecified part of right bronchus or lung (2) Elevated troponin I measurement SNOMED Code(s): 269318395 ICD Code: R74.8 - ABNORMAL LEVELS OF OTHER SERUM ENZYMES Status: Acute Current Visit: Yes (3) Fall as cause of accidental injury at home as place of occurrence SNOMED Code(s): 68843373 ICD Code: W19.XXXA - UNSPECIFIED FALL, INITIAL ENCOUNTER; Y92.009 - UNSP PLACE [facility] Status: Acute Current Visit: Yes (4) Anemia SNOMED Code(s): 537253262 ICD Code: D64.9 - ANEMIA, UNSPECIFIED Status: Acute Current Visit: No Qualifiers: Anemia type: unspecified type Qualified Code(s): D64.9 - Anemia, unspecified (5) Atrial fibrillation SNOMED Code(s): 79453775 ICD Code: I48.91 - UNSPECIFIED ATRIAL FIBRILLATION Status: Acute Current Visit: No Qualifiers: Atrial fibrillation type: paroxysmal Qualified Code(s): I48.0 - Paroxysmal atrial fibrillation Problem List Initiated/Reviewed/Updated: Yes Orders Last 24hrs: Medication Orders Dextrose/Sodium Chloride (Dextrose 5%-Normal Saline) 1,000 mls @ 150 mls/hr IV ASDIRECTED [facility] Last Admin: 12/03/16 11:16 Dose: 150 mls/hr Assessment/Plan Comment:: Impression: Generalized weakness with recent falls No LOC, however old abrasions from previous falls; abnormal CT of brain without contrast(multiple intracranial bleeds, predominately cortical) History of Prostate Cancer, unknown stage History of Lung Cancer, unknown stage; recent steroid taper (prednisone 60--> 20 mg daily) A Fib on Eliquis History of CAD/[place] with PCI; elevated TnI, type 2 [place] Chronic HLD CVA, right sided weakness CKD, stage III History of C Diff Plan: Right sided infiltrate, eval for infectious process superimposed on right sided mass; S/P CTX/RTX MRI brain Neurochecks Empiric ATBs for PNA with abnormal CXR. Hold anticoagulation with recent hemorrhage noted, used sequential SCDs
[2016-12-03] MEDS ORDERED: Nitroglycerin 0.4 MG Tab.SL SL PRN (19:39)
[2016-12-03] MEDS ORDERED: Ondansetron 4 MG Tab.DIS PO PRN (19:39)
[2016-12-03] MEDS ORDERED: Codeine/Promethazine 10-6.25 MG/5 ML Syrup 5 ML UD Cup PO PRN (19:39)
[2016-12-03] MEDS ORDERED: Magnesium Sulfate/Water 2 GM in Premix Bag 1 BAG IV ONE (19:48)
[2016-12-03] MEDS: Benzonatate 100 MG Cap PO PRN (20:17)
[2016-12-03] MEDS: Tamsulosin 0.4 MG Cap.ER PO SCH (20:19)
[2016-12-03] MEDS: Metoprolol Tartrate 25 MG Tab PO SCH (20:24)
[2016-12-03] MEDS: methylPREDNISolone Sodium Succinate 40 MG/1 ML SDV IVPUSH SCH (20:29)
[2016-12-04] MEDS: Sodium Chloride 0.45% with KCl 1,000 ML IV SCH ×2 (05:26→15:08)
[2016-12-04] MEDS: Metoprolol Tartrate 25 MG Tab PO SCH ×2 (08:23→21:05)
[2016-12-04] MEDS: Tamsulosin 0.4 MG Cap.ER PO SCH ×2 (08:23→20:58)
[2016-12-04] MEDS: Diltiazem 120 MG Cap.CD PO SCH (08:24)
[2016-12-04] MEDS: Rosuvastatin 10 MG Tab PO SCH (08:25)
[2016-12-04] MEDS: Pantoprazole 40 MG Tab.CR PO SCH (08:25)
[2016-12-04] MEDS: methylPREDNISolone Sodium Succinate 40 MG/1 ML SDV IVPUSH SCH ×2 (08:25→20:58)
[2016-12-04] MEDS: Potassium Chloride 20 MEQ Tab.ER PO SCH (08:35)
[2016-12-04] MEDS ORDERED: Potassium Chloride 10% 20 MEQ/15 ML Soln 30 ML UD Cup PO SCH (09:00)
[2016-12-04] MEDS ORDERED: Aspirin 81 MG Tab.EC PO SCH (09:00)
[2016-12-04] MEDS ORDERED: Sodium Chloride 0.9% 10 ML Syringe FLUSH PRN (09:48)
[2016-12-04] MEDS ORDERED: Gadobenate Dimeglumine 529 MG/ML 15 ML SDV IVPUSH ONE (09:48)
[2016-12-04] MEDS: Megestrol Susp 40 MG/ML 10 ML UD Cup PO SCH (10:49)
--- NOTE | 2016-12-04 12:01 | MR ---
MRI brain (with and without contrast) Technique: T1 sagittal; T2, T2 FLAIR, T1 and T2 gradient echo and diffusion axial; T1 FLAIR coronal; post-adolinium T1 axial and post-adolinium T1 FLAIR coronal images were obtained through the brain. Comparison: Previous head CT study of 12/03/16. Findings: Parenchymal hemorrhage is seen within the cortex of the left anterior parietal region near the convexity. There is mild amount of subarachnoid blood being seen more posteriorly within the left parietal region as well as mild amount of subarachnoid blood being seen within a portion of the right temporal lobe and parietal lobe. Minimal subarachnoid hemorrhage noted within the left posterior temporal region. Increased signal is noted within the periventricular and subcortical white matter compatible with small vessel ischemic demyelination change. No acute diffusion abnormalities are seen. There is some enhancement being seen in the areas of the subarachnoid hemorrhage. Several minimal areas of enhancement are seen within the right basal ganglia and left basal ganglia as well as within the left parietal white matter. Impression: 1. Areas of subarachnoid blood on both sides as described above. Small parenchymal hemorrhage within the anterior left parietal cortex. Interesting enhancement is seen within the areas of subarachnoid blood and this may relate to inflammatory enhancement of the adjacent meninges from the hemorrhage but difficult to exclude meningeal enhancement from infection and subsequent hemorrhage. Differential also includes meningeal tumor with hemorrhage. 2. Prior CT study showed a questionable subdural hematoma overlying the cerebellar tentorium which is not confirmed on the MRI. 3. Several minimal areas of parenchymal enhancement are seen and difficult to exclude very early intracranial metastatic disease. Diagnostic code #9 Property Custodian called report to Dr. Mariann Orona at 11:34 on 12/04/2016
--- NOTE | 2016-12-04 14:10 | PCM.PN ---
<Priscilla Lawson - Last Filed: 12/04/16 14:35> - General Info Date of Service: 12/04/16 Admission Dx/Problem (Free Text): Admission Diagnosis/Problem Admission Diagnosis/Problem Fall as cause of accidental injury in home as place of occurrence Functional Status: Reports: Pain Controlled, Tolerating Diet, Ambulating - Review of Systems General: Reports: No Symptoms HEENT: Reports: Glasses, Headaches (Localized to the Right frontal and temporal areas (2/10 in pain)), Visual Changes (Blind in Left eye. Decreased vision in Right) Pulmonary: Reports: Cough, Wheezing Gastrointestinal: Reports: No Symptoms Genitourinary: Reports: No Symptoms Musculoskeletal: Reports: No Symptoms Skin: Reports: No Symptoms Neurological: Reports: Dizziness (Walking causes room to tilt and move to the left), Headache, Numbness (Hands and feet), Tingling (Hands and Feet) Psychiatric: Reports: No Symptoms - Patient Data Vitals - Most Recent: Last Vital Signs Temp 97.5 F 12/04/16 12:20 Pulse 59 L 12/04/16 12:20 Resp 19 12/04/16 12:20 BP 142/99 H 12/04/16 12:20 Pulse Ox 95 12/04/16 12:20 Weight - Most Recent: 69.037 kg I&O - Last 24 Hours: Intake & Output 12/03/16 12/04/16 12/04/16 22:59 06:59 14:59 Intake Total 1897 Output Total 600 Balance 1297 Lab Results Last 24 Hours: Laboratory Results - last 24 hr 12/03/16 12/04/16 Range/Units 18:18 05:25 Sodium 141 (136-145) mEq/L Potassium 4.0 (3.5-5.1) mEq/L Chloride 108 H (98-107) mEq/L Carbon Dioxide 20 L (21-32) mEq/L Anion Gap 17.0 H (5-15) BUN 27 H (7-18) mg/dL Creatinine 1.4 H (0.7-1.3) mg/dL Est Cr Clr Drug Dosing 40.71 mL/min Estimated GFR (MDRD) 49 (>60) mL/min BUN/Creatinine Ratio 19.3 H (14-18) Glucose 160 H (83-115) mg/dL Calcium 8.5 (8.5-10.1) mg/dL Magnesium 2.5 H (1.8-2.4) mg/dl Troponin I 0.137 H* (0.00-0.056) ng/mL C-Reactive Protein 7.9 H* (<1.0) mg/dL Triglycerides 61 (<150) mg/dL Cholesterol 231 H (<200) mg/dL LDL Cholesterol Direct 103 H* (<100) mg/dL HDL Cholesterol 116.0 H (40-59) mg/dL Urine Color Yellow (Yellow) Urine Appearance Clear (Clear) Urine pH 6.5 (5.0-8.0) Ur Specific [place] 1.025 (1.005-1.030) Urine Protein Negative (Negative) Urine Glucose (UA) Negative (Negative) Urine Ketones Negative (Negative) Urine Occult Blood 1+ H (Negative) Urine Nitrite Negative (Negative) Urine Bilirubin Negative (Negative) Urine Urobilinogen 0.2 (0.2-1.0) Ur Leukocyte Esterase Negative (Negative) Urine RBC 5-10 H (0-5) /hpf Urine WBC 0-5 (0-5) /hpf Ur Epithelial Cells 0-5 (0-5) /hpf Urine Bacteria Rare (FEW) /hpf Urine Mucus Few (FEW) /hpf Mycoplasma pneumon IgM Negative (NEGATIVE) Med Orders - Current: Current Medications Benzonatate (Tessalon Perles) 200 mg PO TID PRN PRN Reason: Cough Last Admin: 12/03/16 20:17 Dose: 200 mg Diltiazem HCl (Cardizem Cd) 120 mg PO DAILY [facility] Last Admin: 12/04/16 08:24 Dose: 120 mg Potassium Chloride/Sodium Chloride (1/2 Ns With 20 Meq Kcl) 1,000 mls @ 125 mls /hr IV ASDIRECTED [facility] Last Admin: 12/04/16 05:26 Dose: 125 mls/hr Megestrol Acetate (Megace 40 Mg/Ml Susp) 400 mg PO DAILY [facility] Last Admin: 12/04/16 10:49 Dose: 400 mg Methylprednisolone Sodium Succinate (Solu-Medrol) 40 mg IVPUSH Q12H [facility] Last Admin: 12/04/16 08:25 Dose: 40 mg Metoprolol Tartrate (Lopressor) 37.5 mg PO BID [facility] Last Admin: 12/04/16 08:23 Dose: 37.5 mg Nitroglycerin (Nitrostat) 0.4 mg SL SEECOMMENT PRN PRN Reason: Chest Pain Ondansetron HCl (Zofran Odt) 4 mg PO Q4H PRN PRN Reason: Nausea Pantoprazole Sodium (Protonix) 40 mg PO DAILY [facility] Last Admin: 12/04/16 08:25 Dose: 40 mg Potassium Chloride (Klor-Con M20) 40 meq PO DAILY [facility] Last Admin: 12/04/16 08:35 Dose: 40 meq Promethazine HCl/Codeine (Phenergan With Codeine) 5 ml PO BEDTIME PRN PRN Reason: Cough Rosuvastatin Calcium (Crestor) 20 mg PO DAILY [facility] Last Admin: 12/04/16 08:25 Dose: 20 mg Tamsulosin HCl (Flomax) 0.4 mg PO BID [facility] Last Admin: 12/04/16 08:23 Dose: 0.4 mg Discontinued Medications Aspirin (Halfprin) 81 mg PO DAILY [facility] Gadobenate Dimeglumine (Multihance) 15 ml IVPUSH ONETIME ONE Stop: 12/04/16 09:49 Last Admin: 12/04/16 10:31 Dose: 15 ml Dextrose/Sodium Chloride (Dextrose 5%-Normal Saline) 1,000 mls @ 150 mls/hr IV ASDIRECTED [facility] Last Admin: 12/03/16 11:16 Dose: 150 mls/hr Magnesium Sulfate 2 gm/ Premix 50 mls @ 25 mls/hr IV ONETIME ONE Stop: 12/03/16 21:47 Last Admin: 12/03/16 20:19 Dose: 25 mls/hr Dextrose/Sodium Chloride (Dextrose 5%-Normal Saline) 1,000 mls @ 150 mls/hr IV ASDIRECTED [facility] Stop: 12/03/16 23:00 Last Admin: 12/03/16 20:37 Dose: 150 mls/hr Potassium Chloride (Potassium Chloride) 40 meq PO DAILY [facility] Sodium Chloride (Saline Flush) 10 ml FLUSH ONETIME PRN PRN Reason: CHECK IV Stop: 12/04/16 12:00 Last Admin: 12/04/16 10:31 Dose: 10 ml - Exam Quality Assessment: Supplemental Oxygen, DVT Prophylaxis General: Alert, Oriented HEENT: EOMI Neck: Supple Lungs: Normal Respiratory Effort, Wheezing Cardiovascular: Regular Rate, Regular Rhythm GI/Abdominal Exam: Normal Bowel Sounds, Soft, Non-Tender, No Organomegaly, No Distention (Male) Exam: Deferred Extremities: Normal Inspection, Non-Tender, No Pedal Edema, Normal Capillary Refill Skin: Warm, Dry Wound/Incisions: Healing Well Neurological: Strength Equal Bilateral, Cranial Nerves Intact (Grossly intact), Other (Decreased pinprick sensation in feet bilaterally) Psy/Mental Status: Alert, Normal Affect, Normal Mood - Problem List Review Problem List Initiated/Reviewed/Updated: No - Plan Plan:: Patient is a 81 yo male who was admitted for a fall. The patient reports having a minor headache that is localized to the right temporal and parietal of the head. The patient also reported that when he walks it causes the room to shift to the left. Patient is blind in the left eye and decreased vision in his right eye. The patient is not in acute distress. He is on supplemental oxygen. The patient is oriented to person, place and time. Cranial nerves II-XII are grossly intact. The patient does have some difficulty with hand eye coordination , more notably on the left side than the right. Patient has decreased sensation to pinprick and soft touch on the feet. Babinski reflex is normal. Motor strength is +5 bilaterally in the extremities. Expiratory wheezing is noted on respiratory auscultation. SKin abrasions on the parietal aspect of the head. Rest of focused physical exam is unremarkable. Radiology: MRI: Parenchymal hemorrhage is seen within cortex of the left parietal region near the convexity. There is a mild amount of subarachnoid blood in the left posterior parietal region and as well as the right temporal and parietal. Mininum amount of blood in the left temporal region. Small vessel ischemic demyelination change noted in the periventricular and subcorticall white matter. Enhancement noted in the left and right basal ganglia and within the parietal white matter. Labs: Troponin I: 0.278 --> 0.137 C-Reactive: 7.7 --> 7.9 Lipid Panel: Cholesterol: 231, LDL: 116 TSH: 3.473 Mycoplasma IgM: Negative Plan: Continue routine care, monitor for neurological symptoms. Consult PT/OT Neuro exam every 6 hrs Routine AM labs Discontinue anticoagulation <Mariann Orona - Last Filed: 12/05/16 14:20> - Patient Data Vitals - Most Recent: Last Vital Signs Temp 36.1 C 12/05/16 11:44 Pulse 64 12/05/16 11:44 Resp 19 12/05/16 11:44 BP 123/80 12/05/16 11:44 Pulse Ox 96 12/05/16 11:44 I&O - Last 24 Hours: Intake & Output 12/04/16 12/05/16 12/05/16 22:59 06:59 14:59 Intake Total 1000 350 90 Output Total 1000 Balance 1000 -650 90 Lab Results Last 24 Hours: Laboratory Results - last 24 hr 12/05/16 Range/Units 05:26 Sodium 140 (136-145) mEq/L Potassium 4.6 (3.5-5.1) mEq/L Chloride 110 H (98-107) mEq/L Carbon Dioxide 23 (21-32) mEq/L Anion Gap 11.6 (5-15) BUN 30 H (7-18) mg/dL Creatinine 1.5 H (0.7-1.3) mg/dL Est Cr Clr Drug Dosing 38.00 mL/min Estimated GFR (MDRD) 45 (>60) mL/min BUN/Creatinine Ratio 20.0 H (14-18) Glucose 140 H (83-115) mg/dL Calcium 9.0 (8.5-10.1) mg/dL Magnesium 2.4 (1.8-2.4) mg/dl C-Reactive Protein 3.5 H* (<1.0) mg/dL [place] Results Last 24 Hours: Microbiology 12/03/16 22:04 Streptococcus pneumoniae Antigen (M - Final Urine 12/03/16 22:04 Respiratory Virus Panel (PCR) (NAKUL) - Final Nasopharyngeal Swab - Nare, Unspecified Med Orders - Current: Current Medications Benzonatate (Tessalon Perles) 200 mg PO TID PRN PRN Reason: Cough Last Admin: 12/03/16 20:17 Dose: 200 mg Diltiazem HCl (Cardizem Cd) 120 mg PO DAILY [facility] Last Admin: 12/05/16 09:10 Dose: 120 mg Potassium Chloride/Sodium Chloride (1/2 Ns With 20 Meq Kcl) 1,000 mls @ 125 mls /hr IV ASDIRECTED [facility] Last Admin: 12/04/16 15:08 Dose: 125 mls/hr Megestrol Acetate (Megace 40 Mg/Ml Susp) 400 mg PO DAILY [facility] Last Admin: 12/05/16 09:08 Dose: 400 mg Methylprednisolone Sodium Succinate (Solu-Medrol) 40 mg IVPUSH Q12H [facility] Last Admin: 12/05/16 09:08 Dose: 40 mg Metoprolol Tartrate (Lopressor) 37.5 mg PO BID [facility] Last Admin: 12/05/16 09:09 Dose: 37.5 mg Nitroglycerin (Nitrostat) 0.4 mg SL SEECOMMENT PRN PRN Reason: Chest Pain Ondansetron HCl (Zofran Odt) 4 mg PO Q4H PRN PRN Reason: Nausea Pantoprazole Sodium (Protonix) 40 mg PO DAILY [facility] Last Admin: 12/05/16 10:09 Dose: 40 mg Potassium Chloride (Klor-Con M20) 40 meq PO DAILY [facility] Last Admin: 12/05/16 09:09 Dose: 40 meq Promethazine HCl/Codeine (Phenergan With Codeine) 5 ml PO BEDTIME PRN PRN Reason: Cough Rosuvastatin Calcium (Crestor) 20 mg PO DAILY [facility] Last Admin: 12/05/16 09:09 Dose: 20 mg Tamsulosin HCl (Flomax) 0.4 mg PO BID [facility] Last Admin: 12/05/16 09:10 Dose: 0.4 mg Discontinued Medications Aspirin (Halfprin) 81 mg PO DAILY [facility] Gadobenate Dimeglumine (Multihance) 15 ml IVPUSH ONETIME ONE Stop: 12/04/16 09:49 Last Admin: 12/04/16 10:31 Dose: 15 ml Dextrose/Sodium Chloride (Dextrose 5%-Normal Saline) 1,000 mls @ 150 mls/hr IV ASDIRECTED [facility] Last Admin: 12/03/16 11:16 Dose: 150 mls/hr Magnesium Sulfate 2 gm/ Premix 50 mls @ 25 mls/hr IV ONETIME ONE Stop: 12/03/16 21:47 Last Admin: 12/03/16 20:19 Dose: 25 mls/hr Dextrose/Sodium Chloride (Dextrose 5%-Normal Saline) 1,000 mls @ 150 mls/hr IV ASDIRECTED [facility] Stop: 12/03/16 23:00 Last Admin: 12/03/16 20:37 Dose: 150 mls/hr Sodium Chloride (Sodium Chloride 0.45%) 1,000 mls @ 75 mls/hr IV ASDIRECTED [facility] Stop: 12/05/16 00:30 Lorazepam (Ativan) 1 mg IVPUSH ONETIME ONE Stop: 12/04/16 20:05 Last Admin: 12/04/16 21:02 Dose: 1 mg Potassium Chloride (Potassium Chloride) 40 meq PO DAILY [facility] Sodium Chloride (Saline Flush) 10 ml FLUSH ONETIME PRN PRN Reason: CHECK IV Stop: 12/04/16 12:00 Last Admin: 12/04/16 10:31 Dose: 10 ml - Problem List & Annotations (1) Carcinoma, lung SNOMED Code(s): 942684073 Code(s): C34.90 - MALIGNANT NEOPLASM OF UNSP PART OF UNSP BRONCHUS OR LUNG Status: Acute Current Visit: Yes Qualifiers: Laterality: right Qualified Code(s): C34.91 - Malignant neoplasm of unspecified part of right bronchus or lung (2) Elevated troponin I measurement SNOMED Code(s): 285997444 Code(s): R74.8 - ABNORMAL LEVELS OF OTHER SERUM ENZYMES Status: Acute Current Visit: Yes (3) Fall as cause of accidental injury at home as place of occurrence SNOMED Code(s): 76988753 Code(s): W19.XXXA - UNSPECIFIED FALL, INITIAL ENCOUNTER; Y92.009 - UNSP PLACE IN [facility] Status: Acute Current Visit: Yes (4) Anemia SNOMED Code(s): 180964766 Code(s): D64.9 - ANEMIA, UNSPECIFIED Status: Acute Current Visit: No Qualifiers: Anemia type: unspecified type Qualified Code(s): D64.9 - Anemia, unspecified (5) Atrial fibrillation SNOMED Code(s): 64038934 Code(s): I48.91 - UNSPECIFIED ATRIAL FIBRILLATION Status: Acute Current Visit: No Qualifiers: Atrial fibrillation type: paroxysmal Qualified Code(s): I48.0 - Paroxysmal atrial fibrillation - My Orders Last 24 Hours: My Active Orders 12/05/16 18:00 CBC WITH AUTO DIFF [HEME] Routine 12/06/16 05:00 BMP [BASIC METABOLIC PANEL,BMP] [CHEM] DAILY CRP [C-REACTIVE PROTEIN] [CHEM] DAILY MAGNESIUM [CHEM] DAILY 12/07/16 05:00 BMP [BASIC METABOLIC PANEL,BMP] [CHEM] DAILY CRP [C-REACTIVE PROTEIN] [CHEM] DAILY MAGNESIUM [CHEM] DAILY - Plan Plan:: See above for details, will discuss with neurologist special education associate for input as well as put finding in the context of recent assessment by oncologist. The patient is likely stage 4, lung CA. Moreover he has lung CA as well as prostate CA.
[2016-12-04] MEDS ORDERED: Sodium Chloride 0.45% 1,000 ML IV SCH (18:30)
[2016-12-04] MEDS ORDERED: LORazepam 2 MG/ML MDV IVPUSH ONE (20:04)
[2016-12-05] MEDS: Megestrol Susp 40 MG/ML 10 ML UD Cup PO SCH (09:08)
[2016-12-05] MEDS: methylPREDNISolone Sodium Succinate 40 MG/1 ML SDV IVPUSH SCH ×2 (09:08→21:11)
[2016-12-05] MEDS: Metoprolol Tartrate 25 MG Tab PO SCH ×2 (09:09→21:12)
[2016-12-05] MEDS: Rosuvastatin 10 MG Tab PO SCH (09:09)
[2016-12-05] MEDS: Potassium Chloride 20 MEQ Tab.ER PO SCH (09:09)
[2016-12-05] MEDS: Diltiazem 120 MG Cap.CD PO SCH (09:10)
[2016-12-05] MEDS: Tamsulosin 0.4 MG Cap.ER PO SCH ×2 (09:10→21:12)
[2016-12-05] MEDS: Pantoprazole 40 MG Tab.CR PO SCH (10:09)
[2016-12-05] MEDS ORDERED: Magnesium Hydroxide 400 MG/5 ML Susp 30 ML Cup PO ONE (16:49)
--- NOTE | 2016-12-05 18:05 | PCM.PN ---
- General Info Date of Service: 12/05/16 Functional Status: Reports: Pain Controlled, Tolerating Diet - Review of Systems General: Reports: Weakness, Fatigue HEENT: Reports: No Symptoms Pulmonary: Reports: No Symptoms Cardiovascular: Reports: No Symptoms Gastrointestinal: Reports: No Symptoms Genitourinary: Reports: No Symptoms Musculoskeletal: Reports: No Symptoms Skin: Reports: No Symptoms Neurological: Reports: Confusion Psychiatric: Reports: No Symptoms - Patient Data Vitals - Most Recent: Last Vital Signs Temp 36.7 C 12/05/16 16:30 Pulse 69 12/05/16 16:30 Resp 18 12/05/16 16:30 BP 106/71 12/05/16 16:30 Pulse Ox 93 L 12/05/16 16:30 Weight - Most Recent: 68.748 kg I&O - Last 24 Hours: Intake & Output 12/05/16 12/05/16 12/05/16 06:59 14:59 22:59 Intake Total 350 90 120 Output Total 1000 450 Balance -650 90 -330 Lab Results Last 24 Hours: Laboratory Results - last 24 hr 12/05/16 Range/Units 05:26 Sodium 140 (136-145) mEq/L Potassium 4.6 (3.5-5.1) mEq/L Chloride 110 H (98-107) mEq/L Carbon Dioxide 23 (21-32) mEq/L Anion Gap 11.6 (5-15) BUN 30 H (7-18) mg/dL Creatinine 1.5 H (0.7-1.3) mg/dL Est Cr Clr Drug Dosing 38.00 mL/min Estimated GFR (MDRD) 45 (>60) mL/min BUN/Creatinine Ratio 20.0 H (14-18) Glucose 140 H (83-115) mg/dL Calcium 9.0 (8.5-10.1) mg/dL Magnesium 2.4 (1.8-2.4) mg/dl C-Reactive Protein 3.5 H* (<1.0) mg/dL [facility]ul Results Last 24 Hours: Microbiology 12/03/16 22:04 Streptococcus pneumoniae Antigen (M - Final Urine 12/03/16 22:04 Respiratory Virus Panel (PCR) (NAKUL) - Final Nasopharyngeal Swab - Nare, Unspecified Med Orders - Current: Current Medications Benzonatate (Tessalon Perles) 200 mg PO TID PRN PRN Reason: Cough Last Admin: 12/03/16 20:17 Dose: 200 mg Diltiazem HCl (Cardizem Cd) 120 mg PO DAILY [facility] Last Admin: 12/05/16 09:10 Dose: 120 mg Dextrose/Sodium Chloride (Dextrose 5%-1/2 Ns) 1,000 mls @ 50 mls/hr IV ASDIRECTED [facility] Megestrol Acetate (Megace 40 Mg/Ml Susp) 400 mg PO DAILY [facility] Last Admin: 12/05/16 09:08 Dose: 400 mg Methylprednisolone Sodium Succinate (Solu-Medrol) 40 mg IVPUSH Q12H [facility] Last Admin: 12/05/16 09:08 Dose: 40 mg Metoprolol Tartrate (Lopressor) 37.5 mg PO BID [facility] Last Admin: 12/05/16 09:09 Dose: 37.5 mg Nitroglycerin (Nitrostat) 0.4 mg SL SEECOMMENT PRN PRN Reason: Chest Pain Ondansetron HCl (Zofran Odt) 4 mg PO Q4H PRN PRN Reason: Nausea Pantoprazole Sodium (Protonix) 40 mg PO DAILY [facility] Last Admin: 12/05/16 10:09 Dose: 40 mg Potassium Chloride (Klor-Con M20) 40 meq PO DAILY [facility] Last Admin: 12/05/16 09:09 Dose: 40 meq Promethazine HCl/Codeine (Phenergan With Codeine) 5 ml PO BEDTIME PRN PRN Reason: Cough Rosuvastatin Calcium (Crestor) 20 mg PO DAILY [facility] Last Admin: 12/05/16 09:09 Dose: 20 mg Tamsulosin HCl (Flomax) 0.4 mg PO BID [facility] Last Admin: 12/05/16 09:10 Dose: 0.4 mg Discontinued Medications Aspirin (Halfprin) 81 mg PO DAILY [facility] Gadobenate Dimeglumine (Multihance) 15 ml IVPUSH ONETIME ONE Stop: 12/04/16 09:49 Last Admin: 12/04/16 10:31 Dose: 15 ml Dextrose/Sodium Chloride (Dextrose 5%-Normal Saline) 1,000 mls @ 150 mls/hr IV ASDIRECTED [facility] Last Admin: 12/03/16 11:16 Dose: 150 mls/hr Magnesium Sulfate 2 gm/ Premix 50 mls @ 25 mls/hr IV ONETIME ONE Stop: 12/03/16 21:47 Last Admin: 12/03/16 20:19 Dose: 25 mls/hr Potassium Chloride/Sodium Chloride (1/2 Ns With 20 Meq Kcl) 1,000 mls @ 125 mls /hr IV ASDIRECTED [facility] Stop: 12/05/16 00:30 Last Admin: 12/04/16 15:08 Dose: 125 mls/hr Dextrose/Sodium Chloride (Dextrose 5%-Normal Saline) 1,000 mls @ 150 mls/hr IV ASDIRECTED [facility] Stop: 12/03/16 23:00 Last Admin: 12/03/16 20:37 Dose: 150 mls/hr Sodium Chloride (Sodium Chloride 0.45%) 1,000 mls @ 75 mls/hr IV ASDIRECTED [facility] Stop: 12/05/16 00:30 Lorazepam (Ativan) 1 mg IVPUSH ONETIME ONE Stop: 12/04/16 20:05 Last Admin: 12/04/16 21:02 Dose: 1 mg Magnesium Hydroxide (Milk Of Magnesia) 30 ml PO ONETIME ONE Stop: 12/05/16 16:50 Last Admin: 12/05/16 17:04 Dose: 30 ml Potassium Chloride (Potassium Chloride) 40 meq PO DAILY [facility] Sodium Chloride (Saline Flush) 10 ml FLUSH ONETIME PRN PRN Reason: CHECK IV Stop: 12/04/16 12:00 Last Admin: 12/04/16 10:31 Dose: 10 ml - Exam Quality Assessment: DVT Prophylaxis General: Alert, Oriented, No Acute Distress HEENT: Pupils Equal, Pupils Reactive, EOMI Neck: Supple, Trachea Midline Lungs: Normal Respiratory Effort Cardiovascular: Regular Rate, Regular Rhythm GI/Abdominal Exam: Normal Bowel Sounds, Soft, Non-Tender, No Organomegaly, No Distention (Male) Exam: Deferred Back Exam: Normal Inspection Extremities: Normal Inspection Skin: Warm Neurological: No New Focal Deficit Psy/Mental Status: Alert - Problem List & Annotations (1) Carcinoma, lung SNOMED Code(s): 253317552 Code(s): C34.90 - MALIGNANT NEOPLASM OF UNSP PART OF UNSP BRONCHUS OR LUNG Status: Acute Current Visit: Yes Qualifiers: Laterality: right Qualified Code(s): C34.91 - Malignant neoplasm of unspecified part of right bronchus or lung (2) Elevated troponin I measurement SNOMED Code(s): 182624553 Code(s): R74.8 - ABNORMAL LEVELS OF OTHER SERUM ENZYMES Status: Acute Current Visit: Yes (3) Fall as cause of accidental injury at home as place of occurrence SNOMED Code(s): 26152881 Code(s): W19.XXXA - UNSPECIFIED FALL, INITIAL ENCOUNTER; Y92.009 - UNSP PLACE IN UNSP NON-INSTITUT (PRIVATE) RESIDENCE PLACE Status: Acute Current Visit: Yes (4) Anemia SNOMED Code(s): 485718395 Code(s): D64.9 - ANEMIA, UNSPECIFIED Status: Acute Current Visit: No Qualifiers: Anemia type: unspecified type Qualified Code(s): D64.9 - Anemia, unspecified (5) Atrial fibrillation SNOMED Code(s): 61620760 Code(s): I48.91 - UNSPECIFIED ATRIAL FIBRILLATION Status: Acute Current Visit: No Qualifiers: Atrial fibrillation type: paroxysmal Qualified Code(s): I48.0 - Paroxysmal atrial fibrillation - Problem List Review Problem List Initiated/Reviewed/Updated: Yes - My Orders Last 24 Hours: My Active Orders 12/05/16 18:00 CBC WITH AUTO DIFF [HEME] Routine Dextrose 5%-0.45% NaCl [Dextrose 5%-1/2 NS] 1,000 ml IV ASDIRECTED 12/06/16 05:00 BMP [BASIC METABOLIC PANEL,BMP] [CHEM] DAILY CRP [C-REACTIVE PROTEIN] [CHEM] DAILY MAGNESIUM [CHEM] DAILY 12/07/16 05:00 BMP [BASIC METABOLIC PANEL,BMP] [CHEM] DAILY CRP [C-REACTIVE PROTEIN] [CHEM] DAILY MAGNESIUM [CHEM] DAILY - Plan Plan:: Impression: Generalized weakness with recent falls No LOC, however old abrasions from previous falls; abnormal CT of brain without contrast(multiple intracranial bleeds, predominately cortical); MRI ordered. History of Prostate Cancer, unknown stage History of Lung Cancer, unknown stage; recent steroid taper (prednisone 60--> 20 mg daily) A Fib on Eliquis History of CAD/[place] with PCI; elevated TnI, type 2 [place] Chronic HLD CVA, right sided weakness CKD, stage III History of C Diff Plan: Right sided infiltrate, eval for infectious process superimposed on right sided mass; S/P CTX/RTX MRI brain Neurochecks Empiric ATBs for PNA with abnormal CXR. Hold anticoagulation with recent hemorrhage noted, used sequential SCDs
[2016-12-05] MEDS: Dextrose 5%-0.45% NaCl 1,000 ML IV SCH (18:09)
[2016-12-06] MEDS: Diltiazem 120 MG Cap.CD PO SCH (09:54)
[2016-12-06] MEDS: Rosuvastatin 10 MG Tab PO SCH (09:55)
[2016-12-06] MEDS: Tamsulosin 0.4 MG Cap.ER PO SCH ×2 (09:55→21:17)
[2016-12-06] MEDS: Metoprolol Tartrate 25 MG Tab PO SCH ×2 (09:57→21:17)
[2016-12-06] MEDS: Megestrol Susp 40 MG/ML 10 ML UD Cup PO SCH (09:59)
[2016-12-06] MEDS: Pantoprazole 40 MG Tab.CR PO SCH (09:59)
[2016-12-06] MEDS: methylPREDNISolone Sodium Succinate 40 MG/1 ML SDV IVPUSH SCH ×2 (10:00→21:18)
[2016-12-06] MEDS: Potassium Chloride 20 MEQ Tab.ER PO SCH (10:17)
--- NOTE | 2016-12-06 16:34 | PCM.PN ---
- General Info Date of Service: 12/06/16 Functional Status: Reports: Pain Controlled, Tolerating Diet - Review of Systems General: Reports: Weakness HEENT: Reports: No Symptoms Pulmonary: Reports: No Symptoms Cardiovascular: Reports: No Symptoms Gastrointestinal: Reports: No Symptoms Genitourinary: Reports: No Symptoms Musculoskeletal: Reports: No Symptoms Skin: Reports: No Symptoms Neurological: Reports: Confusion Psychiatric: Reports: No Symptoms - Patient Data Vitals - Most Recent: Last Vital Signs Temp 36.2 C 12/06/16 02:36 Pulse 78 12/06/16 09:57 Resp 20 12/06/16 02:36 BP 112/79 12/06/16 09:57 Pulse Ox 92 L 12/06/16 02:36 Weight - Most Recent: 68.748 kg I&O - Last 24 Hours: Intake & Output 12/06/16 12/06/16 12/06/16 06:59 14:59 22:59 Intake Total 603 120 400 Output Total 250 1000 Balance 353 120 -600 Lab Results Last 24 Hours: Laboratory Results - last 24 hr 12/05/16 12/06/16 Range/Units 18:00 05:40 WBC 14.33 H (4.23-9.07) K/mm3 RBC 3.87 L (4.63-6.08) M/mm3 Hgb 12.7 L (13.7-17.5) gm/L Hct 37.2 L (40.1-51.0) % MCV 96.1 H (79.0-92.2) fl MCH 32.8 H (25.7-32.2) pg MCHC 34.1 (32.2-35.5) g/dl RDW Std Deviation 49.2 H (35.1-43.9) fL Plt Count 154 L (163-337) K/mm3 MPV 8.6 L (9.4-12.3) fl Neut % (Auto) 88.7 H (34.0-67.9) % Lymph % (Auto) 7.0 L (21.8-53.1) % [place] % (Auto) 3.6 L (5.3-12.2) % Eos % (Auto) 0.1 L (0.8-7.0) Baso % (Auto) 0.1 (0.1-1.2) % Neut # (Auto) 12.72 H (1.78-5.38) K/mm3 Lymph # (Auto) 1.01 L (1.32-3.57) K/mm3 [place] # (Auto) 0.51 (0.30-0.82) K/mm3 Eos # (Auto) 0.01 L (0.04-0.54) K/mm3 Baso # (Auto) 0.01 (0.01-0.08) K/mm3 Manual Slide Review Normal smear Sodium 141 (136-145) mEq/L Potassium 4.3 (3.5-5.1) mEq/L Chloride 108 H (98-107) mEq/L Carbon Dioxide 21 (21-32) mEq/L Anion Gap 16.3 H (5-15) BUN 39 H (7-18) mg/dL Creatinine 1.5 H (0.7-1.3) mg/dL Est Cr Clr Drug Dosing 38.14 mL/min Estimated GFR (MDRD) 45 (>60) mL/min BUN/Creatinine Ratio 26.0 H (14-18) Glucose 150 H (83-115) mg/dL Calcium 8.9 (8.5-10.1) mg/dL Magnesium 2.4 (1.8-2.4) mg/dl C-Reactive Protein 1.5 H* (<1.0) mg/dL Med Orders - Current: Current Medications Benzonatate (Tessalon Perles) 200 mg PO TID PRN PRN Reason: Cough Last Admin: 12/03/16 20:17 Dose: 200 mg Diltiazem HCl (Cardizem Cd) 120 mg PO DAILY [facility] Last Admin: 12/06/16 09:54 Dose: 120 mg Enoxaparin Sodium (Lovenox) 30 mg SUBCUT DAILY [facility] Dextrose/Sodium Chloride (Dextrose 5%-1/2 Ns) 1,000 mls @ 50 mls/hr IV ASDIRECTED [facility] Last Admin: 12/05/16 18:09 Dose: 50 mls/hr Megestrol Acetate (Megace 40 Mg/Ml Susp) 400 mg PO DAILY [facility] Last Admin: 12/06/16 09:59 Dose: 400 mg Methylprednisolone Sodium Succinate (Solu-Medrol) 40 mg IVPUSH Q12H [facility] Last Admin: 12/06/16 10:00 Dose: 40 mg Metoprolol Tartrate (Lopressor) 37.5 mg PO BID [facility] Last Admin: 12/06/16 09:57 Dose: 37.5 mg Nitroglycerin (Nitrostat) 0.4 mg SL SEECOMMENT PRN PRN Reason: Chest Pain Ondansetron HCl (Zofran Odt) 4 mg PO Q4H PRN PRN Reason: Nausea Pantoprazole Sodium (Protonix) 40 mg PO DAILY [facility] Last Admin: 12/06/16 09:59 Dose: 40 mg Potassium Chloride (Klor-Con M20) 40 meq PO DAILY [facility] Last Admin: 12/06/16 10:17 Dose: 40 meq Promethazine HCl/Codeine (Phenergan With Codeine) 5 ml PO BEDTIME PRN PRN Reason: Cough Rosuvastatin Calcium (Crestor) 20 mg PO DAILY [facility] Last Admin: 12/06/16 09:55 Dose: 20 mg Tamsulosin HCl (Flomax) 0.4 mg PO BID [facility] Last Admin: 12/06/16 09:55 Dose: 0.4 mg Discontinued Medications Aspirin (Halfprin) 81 mg PO DAILY [facility] Gadobenate Dimeglumine (Multihance) 15 ml IVPUSH ONETIME ONE Stop: 12/04/16 09:49 Last Admin: 12/04/16 10:31 Dose: 15 ml Dextrose/Sodium Chloride (Dextrose 5%-Normal Saline) 1,000 mls @ 150 mls/hr IV ASDIRECTED [facility] Last Admin: 12/03/16 11:16 Dose: 150 mls/hr Magnesium Sulfate 2 gm/ Premix 50 mls @ 25 mls/hr IV ONETIME ONE Stop: 12/03/16 21:47 Last Admin: 12/03/16 20:19 Dose: 25 mls/hr Potassium Chloride/Sodium Chloride (1/2 Ns With 20 Meq Kcl) 1,000 mls @ 125 mls /hr IV ASDIRECTED [facility] Stop: 12/05/16 00:30 Last Admin: 12/04/16 15:08 Dose: 125 mls/hr Dextrose/Sodium Chloride (Dextrose 5%-Normal Saline) 1,000 mls @ 150 mls/hr IV ASDIRECTED [facility] Stop: 12/03/16 23:00 Last Admin: 12/03/16 20:37 Dose: 150 mls/hr Sodium Chloride (Sodium Chloride 0.45%) 1,000 mls @ 75 mls/hr IV ASDIRECTED [facility] Stop: 12/05/16 00:30 Lorazepam (Ativan) 1 mg IVPUSH ONETIME ONE Stop: 12/04/16 20:05 Last Admin: 12/04/16 21:02 Dose: 1 mg Magnesium Hydroxide (Milk Of Magnesia) 30 ml PO ONETIME ONE Stop: 12/05/16 16:50 Last Admin: 12/05/16 17:04 Dose: 30 ml Potassium Chloride (Potassium Chloride) 40 meq PO DAILY [facility] Sodium Chloride (Saline Flush) 10 ml FLUSH ONETIME PRN PRN Reason: CHECK IV Stop: 12/04/16 12:00 Last Admin: 12/04/16 10:31 Dose: 10 ml - Exam Quality Assessment: DVT Prophylaxis General: Alert, Oriented, Cooperative, No Acute Distress HEENT: Pupils Equal, Pupils Reactive, EOMI Neck: Supple, Trachea Midline Lungs: Normal Respiratory Effort Cardiovascular: Regular Rate GI/Abdominal Exam: Normal Bowel Sounds, Soft, Non-Tender, No Organomegaly, No Distention (Male) Exam: Deferred Back Exam: Normal Inspection Extremities: Normal Inspection Skin: Warm Neurological: No New Focal Deficit, Normal Speech Psy/Mental Status: Alert, Normal Affect, Normal Mood - Problem List & Annotations (1) Carcinoma, lung SNOMED Code(s): 423576120 Code(s): C34.90 - MALIGNANT NEOPLASM OF UNSP PART OF UNSP BRONCHUS OR LUNG Status: Acute Current Visit: Yes Qualifiers: Laterality: right Qualified Code(s): C34.91 - Malignant neoplasm of unspecified part of right bronchus or lung (2) Elevated troponin I measurement SNOMED Code(s): 042113628 Code(s): R74.8 - ABNORMAL LEVELS OF OTHER SERUM ENZYMES Status: Acute Current Visit: Yes (3) Fall as cause of accidental injury at home as place of occurrence SNOMED Code(s): 85118559 Code(s): W19.XXXA - UNSPECIFIED FALL, INITIAL ENCOUNTER; Y92.009 - UNSP PLACE IN UNSP [facility]PR[facility] RESIDENCE PLACE Status: Acute Current Visit: Yes (4) Anemia SNOMED Code(s): 479861436 Code(s): D64.9 - ANEMIA, UNSPECIFIED Status: Acute Current Visit: No Qualifiers: Anemia type: unspecified type Qualified Code(s): D64.9 - Anemia, unspecified (5) Atrial fibrillation SNOMED Code(s): 43658587 Code(s): I48.91 - UNSPECIFIED ATRIAL FIBRILLATION Status: Acute Current Visit: No Qualifiers: Atrial fibrillation type: paroxysmal Qualified Code(s): I48.0 - Paroxysmal atrial fibrillation - Problem List Review Problem List Initiated/Reviewed/Updated: Yes - My Orders Last 24 Hours: My Active Orders 12/05/16 18:00 Dextrose 5%-0.45% NaCl [Dextrose 5%-1/2 NS] 1,000 ml IV ASDIRECTED 12/05/16 19:16 Code Status [Resuscitation Status] Routine 12/06/16 16:30 Enoxaparin [Lovenox] 30 mg SUBCUT DAILY 12/07/16 05:00 BMP [BASIC METABOLIC PANEL,BMP] [CHEM] DAILY CRP [C-REACTIVE PROTEIN] [CHEM] DAILY MAGNESIUM [CHEM] DAILY - Plan Plan:: Impression: Generalized weakness with recent falls No LOC, however old abrasions from previous falls; abnormal CT of brain without contrast(multiple intracranial bleeds, predominately cortical); MRI multiple areas of small subarachnoid hemorrhages from repeated falls. Can not exclude metastatic disease. History of Prostate Cancer, unknown stage History of Lung Cancer, unknown stage; recent steroid taper (prednisone 60--> 20 mg daily) A Fib on Eliquis, held History of CAD/[place] with PCI; elevated TnI, type 2 [place] Chronic HLD CVA, right sided weakness CKD, stage III History of C Diff Plan: Home meds Daily labs SNF pending Neurochecks Resume Lovenox for DVT prophylaxis Oncology as scheduled next week Code status DNR/DNI, will be DC on 12/09/16.
[2016-12-06] MEDS: Enoxaparin 40 MG/0.4 ML Syringe SUBCUT SCH (19:36)
[2016-12-06] MEDS: Dextrose 5%-0.45% NaCl 1,000 ML IV SCH (21:19)
[2016-12-07] MEDS: Diltiazem 120 MG Cap.CD PO SCH (08:59)
[2016-12-07] MEDS: Rosuvastatin 10 MG Tab PO SCH (09:00)
[2016-12-07] MEDS: Potassium Chloride 20 MEQ Tab.ER PO SCH (09:02)
[2016-12-07] MEDS: Tamsulosin 0.4 MG Cap.ER PO SCH ×2 (09:02→20:59)
[2016-12-07] MEDS: Metoprolol Tartrate 25 MG Tab PO SCH ×2 (09:03→20:59)
[2016-12-07] MEDS: Megestrol Susp 40 MG/ML 10 ML UD Cup PO SCH (09:04)
[2016-12-07] MEDS: Pantoprazole 40 MG Tab.CR PO SCH (09:04)
[2016-12-07] MEDS: methylPREDNISolone Sodium Succinate 40 MG/1 ML SDV IVPUSH SCH ×2 (09:04→21:02)
[2016-12-07] MEDS: Enoxaparin 40 MG/0.4 ML Syringe SUBCUT SCH (09:04)
[2016-12-07] MEDS: Benzonatate 100 MG Cap PO PRN (09:05)
--- NOTE | 2016-12-07 09:22 | PCM.PN ---
- General Info Date of Service: 12/07/16 Admission Dx/Problem (Free Text): Admission Diagnosis/Problem Admission Diagnosis/Problem Fall as cause of accidental injury in home as place of occurrence Subjective Update: Follow Up Functional Status: Reports: Pain Controlled, Tolerating Diet, Urinating - Review of Systems General: Reports: Weakness, Other (Unsteady gait). Denies: Fever, Fatigue, Malaise, Chills HEENT: Reports: No Symptoms Pulmonary: Denies: Shortness of Breath Cardiovascular: Denies: Chest Pain Gastrointestinal: Denies: Abdominal Pain, Nausea, Vomiting Genitourinary: Reports: No Symptoms Musculoskeletal: Reports: No Symptoms Skin: Denies: Cyanosis Neurological: Reports: Confusion, Difficulty Walking, Weakness, Gait Disturbance Psychiatric: Denies: Depression, Anxiety, Agitation, Hallucinations Systems Review Comment:: No significant overnight or acute issues. Patient is alert and awake but disorientated. He is also confused. He has non new complaints. - Patient Data Vitals - Most Recent: Last Vital Signs Temp 36.3 C 12/07/16 08:42 Pulse 68 12/07/16 09:03 Resp 18 12/07/16 08:42 BP 135/75 12/07/16 09:03 Pulse Ox 95 12/07/16 08:42 Weight - Most Recent: 67.993 kg I&O - Last 24 Hours: Intake & Output 12/06/16 12/07/16 12/07/16 22:59 06:59 14:59 Intake Total 1460 746 Output Total 1000 900 Balance 460 -154 Lab Results Last 24 Hours: Laboratory Results - last 24 hr 12/07/16 Range/Units 05:54 Sodium 143 (136-145) mEq/L Potassium 4.3 (3.5-5.1) mEq/L Chloride 110 H (98-107) mEq/L Carbon Dioxide 21 (21-32) mEq/L Anion Gap 16.3 H (5-15) BUN 34 H (7-18) mg/dL Creatinine 1.5 H (0.7-1.3) mg/dL Est Cr Clr Drug Dosing 37.77 mL/min Estimated GFR (MDRD) 45 (>60) mL/min BUN/Creatinine Ratio 22.7 H (14-18) Glucose 137 H (83-115) mg/dL Calcium 8.9 (8.5-10.1) mg/dL Magnesium 2.4 (1.8-2.4) mg/dl C-Reactive Protein 0.6 (<1.0) mg/dL Med Orders - Current: Current Medications Benzonatate (Tessalon Perles) 200 mg PO TID PRN PRN Reason: Cough Last Admin: 12/07/16 09:05 Dose: 200 mg Diltiazem HCl (Cardizem Cd) 120 mg PO DAILY [facility] Last Admin: 12/07/16 08:59 Dose: 120 mg Enoxaparin Sodium (Lovenox) 40 mg SUBCUT DAILY [facility] Last Admin: 12/07/16 09:04 Dose: 40 mg Dextrose/Sodium Chloride (Dextrose 5%-1/2 Ns) 1,000 mls @ 50 mls/hr IV ASDIRECTED [facility] Last Admin: 12/06/16 21:19 Dose: 50 mls/hr Megestrol Acetate (Megace 40 Mg/Ml Susp) 400 mg PO DAILY [facility] Last Admin: 12/07/16 09:04 Dose: 400 mg Methylprednisolone Sodium Succinate (Solu-Medrol) 40 mg IVPUSH Q12H [facility] Last Admin: 12/07/16 09:04 Dose: 40 mg Metoprolol Tartrate (Lopressor) 37.5 mg PO BID [facility] Last Admin: 12/07/16 09:03 Dose: 37.5 mg Nitroglycerin (Nitrostat) 0.4 mg SL SEECOMMENT PRN PRN Reason: Chest Pain Ondansetron HCl (Zofran Odt) 4 mg PO Q4H PRN PRN Reason: Nausea Pantoprazole Sodium (Protonix) 40 mg PO DAILY [facility] Last Admin: 12/07/16 09:04 Dose: 40 mg Potassium Chloride (Klor-Con M20) 40 meq PO DAILY [facility] Last Admin: 12/07/16 09:02 Dose: 40 meq Promethazine HCl/Codeine (Phenergan With Codeine) 5 ml PO BEDTIME PRN PRN Reason: Cough Rosuvastatin Calcium (Crestor) 20 mg PO DAILY [facility] Last Admin: 12/07/16 09:00 Dose: 20 mg Tamsulosin HCl (Flomax) 0.4 mg PO BID [facility] Last Admin: 12/07/16 09:02 Dose: 0.4 mg Discontinued Medications Aspirin (Halfprin) 81 mg PO DAILY [facility] Gadobenate Dimeglumine (Multihance) 15 ml IVPUSH ONETIME ONE Stop: 12/04/16 09:49 Last Admin: 12/04/16 10:31 Dose: 15 ml Dextrose/Sodium Chloride (Dextrose 5%-Normal Saline) 1,000 mls @ 150 mls/hr IV ASDIRECTED [facility] Last Admin: 12/03/16 11:16 Dose: 150 mls/hr Magnesium Sulfate 2 gm/ Premix 50 mls @ 25 mls/hr IV ONETIME ONE Stop: 12/03/16 21:47 Last Admin: 12/03/16 20:19 Dose: 25 mls/hr Potassium Chloride/Sodium Chloride (1/2 Ns With 20 Meq Kcl) 1,000 mls @ 125 mls /hr IV ASDIRECTED [facility] Stop: 12/05/16 00:30 Last Admin: 12/04/16 15:08 Dose: 125 mls/hr Dextrose/Sodium Chloride (Dextrose 5%-Normal Saline) 1,000 mls @ 150 mls/hr IV ASDIRECTED [facility] Stop: 12/03/16 23:00 Last Admin: 12/03/16 20:37 Dose: 150 mls/hr Sodium Chloride (Sodium Chloride 0.45%) 1,000 mls @ 75 mls/hr IV ASDIRECTED [facility] Stop: 12/05/16 00:30 Lorazepam (Ativan) 1 mg IVPUSH ONETIME ONE Stop: 12/04/16 20:05 Last Admin: 12/04/16 21:02 Dose: 1 mg Magnesium Hydroxide (Milk Of Magnesia) 30 ml PO ONETIME ONE Stop: 12/05/16 16:50 Last Admin: 12/05/16 17:04 Dose: 30 ml Potassium Chloride (Potassium Chloride) 40 meq PO DAILY [facility] Sodium Chloride (Saline Flush) 10 ml FLUSH ONETIME PRN PRN Reason: CHECK IV Stop: 12/04/16 12:00 Last Admin: 12/04/16 10:31 Dose: 10 ml - Exam General: Alert, Cooperative. No: Oriented, No Acute Distress HEENT: Mucous Membr. Moist/[place], Other (Blind on left eye) Neck: Supple, Trachea Midline, No JVD Lungs: Normal Respiratory Effort, Decreased Breath Sounds Cardiovascular: Irregular Rhythm, Other GI/Abdominal Exam: Normal Bowel Sounds, Soft, Non-Tender, No Organomegaly, No Distention, No Abnormal Bruit (Male) Exam: Deferred Back Exam: Normal Inspection, Decreased Range of Motion Extremities: Normal Inspection, Normal Range of Motion, Non-Tender, No Pedal Edema, Other (port-a-cath on left upper thorax) Peripheral Pulses: 2+: Dorsalis Pedis (L), Dorsalis Pedis (R) Skin: Warm, Dry, Intact Neurological: No New Focal Deficit Psy/Mental Status: Alert, Normal Affect, Normal Mood - Problem List Review Problem List Initiated/Reviewed/Updated: Yes - Plan Plan:: Assessment/Plan: Acute: Multiple Intra-cranial Bleed - Embolic phenomenon vs Metastatic Disease (more likely) - Patient has chronic atrial fibrillation and no active neoplastic disease: lung and prostate cancer - Family will let me know if they want to stop the blood thinner (lovenox) Generalized weakness with recent falls - Likely 2/2 posterior brain bleed - Head CT scan: subdural hematoma overlying cerebellar tentorium - He is on lovenox for stroke prophylaxis; eliquis was held - Continue PT/OT Old Abrasions from Previous Falls - Abnormal CT of brain without contrast (multiple intra-cranial bleed, predominately cortical); MRI multiple areas of small subarachnoid hemorrhages from repeated falls - Can not exclude metastatic disease Confusion/Encephalopathy - Likely 2/2 above - Continue routine neuro-check - He is alert and awake - Head CT scan if symptom worsens Prostate Cancer, unknown stage; has not started treatment yet per family Lung Cancer, unknown stage; recent steroid taper (prednisone 60--> 20 mg daily) , on radiotherapy A Fib on Lovenox for now, HR controlled History of CAD/[place] with PCI; elevated TnI, type 2 [place] Chronic: HLD CVA, right sided weakness CKD, stage III History of C Diff Plan: Her is hemodynamically stable but overall prognosis is poor Informed family and patient about his clinical progress and not so good prognosis Routine AM labs Routine Neuro-checks DVT prophylaxis: on Lovenox- family to decide whether to continue it or not; they are aware it could worsen his brain bleed Continue Fall/Aspiration Precautions Oncology as scheduled next week Additional orders as above Code status DNR/DNI, will be DC on 12/09/16 LOS anticipate > 96 hrs pending SNF placement
[2016-12-07] MEDS ORDERED: LORazepam 2 MG/ML MDV IVPUSH PRN (16:40)
[2016-12-07] MEDS ORDERED: hydrALAZINE 20 MG/ML SDV IVPUSH PRN (16:40)
[2016-12-07] MEDS ORDERED: Metoprolol Tartrate 5 MG/5 ML SDV IVPUSH PRN (16:40)
[2016-12-07] MEDS: Dextrose 5%-0.45% NaCl 1,000 ML IV SCH (17:32)
--- NOTE | 2016-12-08 07:51 | PCM.PN ---
- General Info Date of Service: 12/08/16 Admission Dx/Problem (Free Text): Admission Diagnosis/Problem Admission Diagnosis/Problem Fall as cause of accidental injury in home as place of occurrence Subjective Update: Follow Up Functional Status: Reports: Pain Controlled, Tolerating Diet, Urinating, New Symptoms (Wheezy) - Review of Systems General: Denies: Fever, Weakness, Fatigue, Malaise HEENT: Reports: No Symptoms Pulmonary: Reports: Wheezing. Denies: Shortness of Breath Cardiovascular: Denies: Chest Pain Gastrointestinal: Denies: Abdominal Pain, Nausea, Vomiting Genitourinary: Reports: No Symptoms Musculoskeletal: Reports: No Symptoms Skin: Denies: Cyanosis Neurological: Reports: Confusion (baseline), Difficulty Walking, Gait Disturbance. Denies: Weakness Psychiatric: Denies: Mood Lability, Anxiety, Agitation, Hallucinations Systems Review Comment:: No significant overnight or acute issues. He slept really good. He reports respiratory wheezing but no shortness of breath. He has had trouble using the straws according to his day nurse this morning. - Patient Data Vitals - Most Recent: Last Vital Signs Temp 36.4 C 12/08/16 03:41 Pulse 70 12/08/16 03:42 Resp 20 12/08/16 03:42 BP 135/76 12/08/16 03:41 Pulse Ox 95 12/08/16 03:42 Weight - Most Recent: 67.676 kg I&O - Last 24 Hours: Intake & Output 12/07/16 12/08/16 12/08/16 22:59 06:59 14:59 Intake Total 1100 1011 Output Total 400 600 Balance 700 411 Med Orders - Current: Current Medications Benzonatate (Tessalon Perles) 200 mg PO TID PRN PRN Reason: Cough Last Admin: 12/07/16 09:05 Dose: 200 mg Diltiazem HCl (Cardizem Cd) 120 mg PO DAILY JERRY Last Admin: 12/07/16 08:59 Dose: 120 mg Enoxaparin Sodium (Lovenox) 40 mg SUBCUT DAILY JERRY Last Admin: 12/07/16 09:04 Dose: 40 mg Hydralazine HCl (Apresoline) 10 mg IVPUSH Q4H PRN PRN Reason: Hypertension Dextrose/Sodium Chloride (Dextrose 5%-1/2 Ns) 1,000 mls @ 50 mls/hr IV ASDIRECTED [facility] Last Admin: 12/07/16 17:32 Dose: 50 mls/hr Lorazepam (Ativan) 2 mg IVPUSH Q4H PRN PRN Reason: Seizures Megestrol Acetate (Megace 40 Mg/Ml Susp) 400 mg PO DAILY [facility] Last Admin: 12/07/16 09:04 Dose: 400 mg Methylprednisolone Sodium Succinate (Solu-Medrol) 40 mg IVPUSH Q12H [facility] Last Admin: 12/07/16 21:02 Dose: 40 mg Metoprolol Tartrate (Lopressor) 37.5 mg PO BID [facility] Last Admin: 12/07/16 20:59 Dose: 37.5 mg Metoprolol Tartrate (Lopressor) 5 mg IVPUSH Q4H PRN PRN Reason: Tachycardia Nitroglycerin (Nitrostat) 0.4 mg SL SEECOMMENT PRN PRN Reason: Chest Pain Ondansetron HCl (Zofran Odt) 4 mg PO Q4H PRN PRN Reason: Nausea Pantoprazole Sodium (Protonix) 40 mg PO DAILY [facility] Last Admin: 12/07/16 09:04 Dose: 40 mg Potassium Chloride (Klor-Con M20) 40 meq PO DAILY [facility] Last Admin: 12/07/16 09:02 Dose: 40 meq Promethazine HCl/Codeine (Phenergan With Codeine) 5 ml PO BEDTIME PRN PRN Reason: Cough Rosuvastatin Calcium (Crestor) 20 mg PO DAILY [facility] Last Admin: 12/07/16 09:00 Dose: 20 mg Tamsulosin HCl (Flomax) 0.4 mg PO BID [facility] Last Admin: 12/07/16 20:59 Dose: 0.4 mg Discontinued Medications Aspirin (Halfprin) 81 mg PO DAILY [facility] Gadobenate Dimeglumine (Multihance) 15 ml IVPUSH ONETIME ONE Stop: 12/04/16 09:49 Last Admin: 12/04/16 10:31 Dose: 15 ml Dextrose/Sodium Chloride (Dextrose 5%-Normal Saline) 1,000 mls @ 150 mls/hr IV ASDIRECTED [facility] Last Admin: 12/03/16 11:16 Dose: 150 mls/hr Magnesium Sulfate 2 gm/ Premix 50 mls @ 25 mls/hr IV ONETIME ONE Stop: 12/03/16 21:47 Last Admin: 12/03/16 20:19 Dose: 25 mls/hr Potassium Chloride/Sodium Chloride (1/2 Ns With 20 Meq Kcl) 1,000 mls @ 125 mls /hr IV ASDIRECTED JERRY Stop: 12/05/16 00:30 Last Admin: 12/04/16 15:08 Dose: 125 mls/hr Dextrose/Sodium Chloride (Dextrose 5%-Normal Saline) 1,000 mls @ 150 mls/hr IV ASDIRECTED JERRY Stop: 12/03/16 23:00 Last Admin: 12/03/16 20:37 Dose: 150 mls/hr Sodium Chloride (Sodium Chloride 0.45%) 1,000 mls @ 75 mls/hr IV ASDIRECTED JERRY Stop: 12/05/16 00:30 Lorazepam (Ativan) 1 mg IVPUSH ONETIME ONE Stop: 12/04/16 20:05 Last Admin: 12/04/16 21:02 Dose: 1 mg Magnesium Hydroxide (Milk Of Magnesia) 30 ml PO ONETIME ONE Stop: 12/05/16 16:50 Last Admin: 12/05/16 17:04 Dose: 30 ml Potassium Chloride (Potassium Chloride) 40 meq PO DAILY JERRY Sodium Chloride (Saline Flush) 10 ml FLUSH ONETIME PRN PRN Reason: CHECK IV Stop: 12/04/16 12:00 Last Admin: 12/04/16 10:31 Dose: 10 ml - Exam General: Alert, Cooperative, No Acute Distress, Other (Awake). No: Oriented HEENT: Pupils Equal, Pupils Reactive, EOMI, Mucous Membr. Moist/[place] Neck: Supple, Trachea Midline Lungs: Clear to Auscultation, Normal Respiratory Effort Cardiovascular: Irregular Rhythm GI/Abdominal Exam: Normal Bowel Sounds, Soft, Non-Tender, No Organomegaly, No Distention, No Abnormal Bruit, No Mass (Male) Exam: Deferred Back Exam: Normal Inspection, Decreased Range of Motion Extremities: Normal Inspection, Normal Range of Motion, Non-Tender, No Pedal Edema, Normal Capillary Refill Peripheral Pulses: 2+: Dorsalis Pedis (L), Dorsalis Pedis (R) Skin: Warm, Dry, Intact Neurological: No New Focal Deficit Psy/Mental Status: Alert, Normal Affect, Normal Mood - Problem List Review Problem List Initiated/Reviewed/Updated: Yes - My Orders Last 24 Hours: My Active Orders 12/07/16 16:40 LORazepam [Ativan] 2 mg IVPUSH Q4H PRN Metoprolol Tartrate [Lopressor] 5 mg IVPUSH Q4H PRN hydrALAZINE [Apresoline] 10 mg IVPUSH Q4H PRN 12/09/16 05:11 BMP [BASIC METABOLIC PANEL,BMP] [CHEM] AM CBC WITH AUTO DIFF [HEME] AM MG [MAGNESIUM] [CHEM] AM - Plan Plan:: Assessment/Plan: Acute: Multiple Intra-cranial Bleed - Embolic phenomenon vs Metastatic Disease (more likely) - Patient has chronic atrial fibrillation and no active neoplastic disease: lung and prostate cancer - Family will let me know if they want to stop the blood thinner (lovenox) Generalized Weakness with Recent Falls - Likely 2/2 posterior brain bleed - Head CT scan: subdural hematoma overlying cerebellar tentorium - He is on lovenox for stroke prophylaxis; eliquis was held - Continue PT/OT Old Abrasions from Previous Falls - Abnormal CT of brain without contrast (multiple intra-cranial bleed, predominately cortical); MRI multiple areas of small subarachnoid hemorrhages from repeated falls - Can not exclude metastatic disease Confusion/Encephalopathy, Unchanged - Likely 2/2 above - Continue routine neuro-check - He is alert and awake and no worsening of confusion - Head CT scan if symptom worsens Prostate Cancer, unknown stage; has not started treatment yet per family Lung Cancer, unknown stage; recent steroid taper (prednisone 60--> 20 mg daily) , on radiotherapy A Fib on Lovenox for now, HR controlled History of CAD/CT with PCI; elevated TnI, type 2 CT Chronic: HLD CVA, right sided weakness CKD, stage III History of C Diff Plan: He remains hemodynamically stable Routine AM labs Routine Neuro-checks DVT prophylaxis: on Lovenox- family decided to keep him on it Continue Fall/Aspiration Precautions Swallow Eval in AM Oncology as scheduled next week Additional orders as above Code status DNR/DNI LOS anticipate > 96 hrs pending SNF placement
[2016-12-08] MEDS: Diltiazem 120 MG Cap.CD PO SCH (08:40)
[2016-12-08] MEDS: Potassium Chloride 20 MEQ Tab.ER PO SCH (08:41)
[2016-12-08] MEDS: Rosuvastatin 10 MG Tab PO SCH (08:41)
[2016-12-08] MEDS: Metoprolol Tartrate 25 MG Tab PO SCH ×2 (08:41→20:56)
[2016-12-08] MEDS: Tamsulosin 0.4 MG Cap.ER PO SCH ×2 (08:41→20:58)
[2016-12-08] MEDS: Enoxaparin 40 MG/0.4 ML Syringe SUBCUT SCH (08:42)
[2016-12-08] MEDS: Megestrol Susp 40 MG/ML 10 ML UD Cup PO SCH (08:42)
[2016-12-08] MEDS: Pantoprazole 40 MG Tab.CR PO SCH (08:43)
[2016-12-08] MEDS: methylPREDNISolone Sodium Succinate 40 MG/1 ML SDV IVPUSH SCH ×2 (08:43→20:58)
[2016-12-08] MEDS: Dextrose 5%-0.45% NaCl 1,000 ML IV SCH (13:50)
[2016-12-09] MEDS: Potassium Chloride 20 MEQ Tab.ER PO SCH (08:26)
[2016-12-09] MEDS: methylPREDNISolone Sodium Succinate 40 MG/1 ML SDV IVPUSH SCH ×2 (08:26→21:23)
[2016-12-09] MEDS: Diltiazem 120 MG Cap.CD PO SCH (08:26)
[2016-12-09] MEDS: Megestrol Susp 40 MG/ML 10 ML UD Cup PO SCH (08:26)
[2016-12-09] MEDS: Enoxaparin 40 MG/0.4 ML Syringe SUBCUT SCH (08:27)
[2016-12-09] MEDS: Metoprolol Tartrate 25 MG Tab PO SCH ×2 (08:27→21:23)
[2016-12-09] MEDS: Rosuvastatin 10 MG Tab PO SCH (08:27)
[2016-12-09] MEDS: Tamsulosin 0.4 MG Cap.ER PO SCH ×2 (08:27→21:23)
[2016-12-09] MEDS: Pantoprazole 40 MG Tab.CR PO SCH (08:27)
[2016-12-09] MEDS: Dextrose 5%-0.45% NaCl 1,000 ML IV SCH (08:50)
--- NOTE | 2016-12-09 13:59 | PCM.PN ---
- General Info Date of Service: 12/09/16 Admission Dx/Problem (Free Text): Admission Diagnosis/Problem Admission Diagnosis/Problem Fall as cause of accidental injury in home as place of occurrence Matthew is seen this morning with Dr. Salmon and again this afternoon. This afternoon he is eating lunch, assisted by [employer]ORCH STRAIGHT[employer]. Patient not hungry. Is alert and verbal. Unable to feed himself however. Denies c/o pain. Family present in room; both visits have discussion with family re: plan of care , discharge plan and expectations of disease course/prognosis both of which are unknown or unable to determine at this time. Functional Status: Reports: Pain Controlled, Tolerating Diet (minimal appetite; did have REGIONAL MAINTENANCE MANAGER eval this am ). Denies: Ambulating - Review of Systems General: Reports: Weakness. Denies: Fever Pulmonary: Reports: No Symptoms Cardiovascular: Reports: No Symptoms Gastrointestinal: Denies: Abdominal Pain Neurological: Reports: Confusion, Trouble Speaking, Weakness Systems Review Comment:: Unable to obtain as patient is verbal but unable to answer most questions other than yes or no. - Patient Data Vitals - Most Recent: Last Vital Signs Temp 98.4 F 12/09/16 08:01 Pulse 74 12/09/16 08:27 Resp 19 12/09/16 08:01 BP 130/94 H 12/09/16 08:27 Pulse Ox 94 L 12/09/16 08:01 Weight - Most Recent: 144 lb 12.8 oz I&O - Last 24 Hours: Intake & Output 12/08/16 12/09/16 12/09/16 22:59 06:59 14:59 Intake Total 1560 800 260 Output Total 300 700 Balance 1260 100 260 Lab Results Last 24 Hours: Laboratory Results - last 24 hr 12/09/16 12/09/16 Range/Units 05:50 05:50 WBC 9.68 H (4.23-9.07) K/mm3 RBC 4.13 L (4.63-6.08) M/mm3 Hgb 13.3 L (13.7-17.5) gm/L Hct 39.0 L (40.1-51.0) % MCV 94.4 H (79.0-92.2) fl MCH 32.2 (25.7-32.2) pg MCHC 34.1 (32.2-35.5) g/dl RDW Std Deviation 47.2 H (35.1-43.9) fL Plt Count 149 L (163-337) K/mm3 MPV 8.8 L (9.4-12.3) fl Neut % (Auto) 91.1 H (34.0-67.9) % Lymph % (Auto) 5.3 L (21.8-53.1) % [place] % (Auto) 3.0 L (5.3-12.2) % Eos % (Auto) 0 L (0.8-7.0) Baso % (Auto) 0.0 L (0.1-1.2) % Neut # (Auto) 8.82 H (1.78-5.38) K/mm3 Lymph # (Auto) 0.51 L (1.32-3.57) K/mm3 [place] # (Auto) 0.29 L (0.30-0.82) K/mm3 Eos # (Auto) 0.00 L (0.04-0.54) K/mm3 Baso # (Auto) 0.00 L (0.01-0.08) K/mm3 Manual Slide Review Abnormal smear Sodium 143 (136-145) mEq/L Potassium 4.1 (3.5-5.1) mEq/L Chloride 110 H (98-107) mEq/L Carbon Dioxide 19 L (21-32) mEq/L Anion Gap 18.1 H (5-15) BUN 41 H (7-18) mg/dL Creatinine 1.6 H (0.7-1.3) mg/dL Est Cr Clr Drug Dosing 34.21 mL/min Estimated GFR (MDRD) 42 (>60) mL/min BUN/Creatinine Ratio 25.6 H (14-18) Glucose 155 H (83-115) mg/dL Calcium 8.6 (8.5-10.1) mg/dL Magnesium 2.4 (1.8-2.4) mg/dl Med Orders - Current: Current Medications Benzonatate (Tessalon Perles) 200 mg PO TID PRN PRN Reason: Cough Last Admin: 12/07/16 09:05 Dose: 200 mg Diltiazem HCl (Cardizem Cd) 120 mg PO DAILY JERRY Last Admin: 12/09/16 08:26 Dose: 120 mg Enoxaparin Sodium (Lovenox) 40 mg SUBCUT DAILY [facility] Last Admin: 12/09/16 08:27 Dose: 40 mg Hydralazine HCl (Apresoline) 10 mg IVPUSH Q4H PRN PRN Reason: Hypertension Dextrose/Sodium Chloride (Dextrose 5%-1/2 Ns) 1,000 mls @ 50 mls/hr IV ASDIRECTED [facility] Last Admin: 12/09/16 08:50 Dose: 50 mls/hr Lorazepam (Ativan) 2 mg IVPUSH Q4H PRN PRN Reason: Seizures Megestrol Acetate (Megace 40 Mg/Ml Susp) 400 mg PO DAILY [facility] Last Admin: 12/09/16 08:26 Dose: 400 mg Methylprednisolone Sodium Succinate (Solu-Medrol) 40 mg IVPUSH Q12H [facility] Last Admin: 12/09/16 08:26 Dose: 40 mg Metoprolol Tartrate (Lopressor) 37.5 mg PO BID [facility] Last Admin: 12/09/16 08:27 Dose: 37.5 mg Metoprolol Tartrate (Lopressor) 5 mg IVPUSH Q4H PRN PRN Reason: Tachycardia Nitroglycerin (Nitrostat) 0.4 mg SL SEECOMMENT PRN PRN Reason: Chest Pain Ondansetron HCl (Zofran Odt) 4 mg PO Q4H PRN PRN Reason: Nausea Pantoprazole Sodium (Protonix) 40 mg PO DAILY [facility] Last Admin: 12/09/16 08:27 Dose: 40 mg Potassium Chloride (Klor-Con M20) 40 meq PO DAILY [facility] Last Admin: 12/09/16 08:26 Dose: 40 meq Promethazine HCl/Codeine (Phenergan With Codeine) 5 ml PO BEDTIME PRN PRN Reason: Cough Rosuvastatin Calcium (Crestor) 20 mg PO DAILY [facility] Last Admin: 12/09/16 08:27 Dose: 20 mg Tamsulosin HCl (Flomax) 0.4 mg PO BID [facility] Last Admin: 12/09/16 08:27 Dose: 0.4 mg Discontinued Medications Aspirin (Halfprin) 81 mg PO DAILY [facility] Gadobenate Dimeglumine (Multihance) 15 ml IVPUSH ONETIME ONE Stop: 12/04/16 09:49 Last Admin: 12/04/16 10:31 Dose: 15 ml Dextrose/Sodium Chloride (Dextrose 5%-Normal Saline) 1,000 mls @ 150 mls/hr IV ASDIRECTED [facility] Last Admin: 12/03/16 11:16 Dose: 150 mls/hr Magnesium Sulfate 2 gm/ Premix 50 mls @ 25 mls/hr IV ONETIME ONE Stop: 12/03/16 21:47 Last Admin: 12/03/16 20:19 Dose: 25 mls/hr Potassium Chloride/Sodium Chloride (1/2 Ns With 20 Meq Kcl) 1,000 mls @ 125 mls /hr IV ASDIRECTED [facility] Stop: 12/05/16 00:30 Last Admin: 12/04/16 15:08 Dose: 125 mls/hr Dextrose/Sodium Chloride (Dextrose 5%-Normal Saline) 1,000 mls @ 150 mls/hr IV ASDIRECTED [facility] Stop: 12/03/16 23:00 Last Admin: 12/03/16 20:37 Dose: 150 mls/hr Sodium Chloride (Sodium Chloride 0.45%) 1,000 mls @ 75 mls/hr IV ASDIRECTED [facility] Stop: 12/05/16 00:30 Lorazepam (Ativan) 1 mg IVPUSH ONETIME ONE Stop: 12/04/16 20:05 Last Admin: 12/04/16 21:02 Dose: 1 mg Magnesium Hydroxide (Milk Of Magnesia) 30 ml PO ONETIME ONE Stop: 12/05/16 16:50 Last Admin: 12/05/16 17:04 Dose: 30 ml Potassium Chloride (Potassium Chloride) 40 meq PO DAILY [facility] Sodium Chloride (Saline Flush) 10 ml FLUSH ONETIME PRN PRN Reason: CHECK IV Stop: 12/04/16 12:00 Last Admin: 12/04/16 10:31 Dose: 10 ml - Exam Quality Assessment: DVT Prophylaxis General: Alert, No Acute Distress HEENT: Pupils Equal, Mucous Membr. Moist/[place] Neck: Supple Lungs: Normal Respiratory Effort GI/Abdominal Exam: Normal Bowel Sounds, Soft Extremities: Normal Inspection, No Pedal Edema Neurological: No: Normal Speech, Strength Equal Bilateral Psy/Mental Status: Alert - Problem List & Annotations (1) Brain bleed SNOMED Code(s): 308054507 Code(s): I61.9 - NONTRAUMATIC INTRACEREBRAL HEMORRHAGE, UNSPECIFIED Status : Acute Priority: High Current Visit: Yes (2) Carcinoma, lung SNOMED Code(s): 309366694 Code(s): C34.90 - MALIGNANT NEOPLASM OF UNSP PART OF UNSP BRONCHUS OR LUNG Status: Chronic Priority: High Current Visit: Yes Qualifiers: Laterality: right Qualified Code(s): C34.91 - Malignant neoplasm of unspecified part of right bronchus or lung (3) Fall as cause of accidental injury at home as place of occurrence SNOMED Code(s): 63328158 Code(s): W19.XXXA - UNSPECIFIED FALL, INITIAL ENCOUNTER; Y92.009 - UNSP PLACE IN UNSP NON-INSTITUT (PRIVATE) RESIDENCE PLACE Status: Acute Priority: High Current Visit: Yes Qualifiers: Encounter type: initial encounter Qualified Code(s): W19.XXXA - Unspecified fall, initial encounter; Y92.009 - Unspecified place in unspecified non-institutional (private) residence as the place of occurrence of the external cause; Y92.009 - Unspecified place in unspecified non-institutional ( private) residence as the place of occurrence of the external cause (4) Acute coronary syndrome SNOMED Code(s): 139593767 Code(s): I24.9 - ACUTE ISCHEMIC HEART DISEASE, UNSPECIFIED Status: Resolved Priority: High Current Visit: Yes (5) Anemia SNOMED Code(s): 689797867 Code(s): D64.9 - ANEMIA, UNSPECIFIED Status: Chronic Priority: Medium Current Visit: Yes Qualifiers: Anemia type: unspecified type Qualified Code(s): D64.9 - Anemia, unspecified (6) Atrial fibrillation SNOMED Code(s): 65378501 Code(s): I48.91 - UNSPECIFIED ATRIAL FIBRILLATION Status: Chronic Priority: High Current Visit: Yes Qualifiers: Atrial fibrillation type: paroxysmal Qualified Code(s): I48.0 - Paroxysmal atrial fibrillation (7) CAD (coronary artery disease) SNOMED Code(s): 31709143 Code(s): I25.10 - ATHSCL HEART DISEASE OF [place] CORONARY ARTERY W/O ANG PCTRS Status: Chronic Priority: Medium Current Visit: Yes Qualifiers: Coronary Disease-Associated Artery/Lesion type: unspecified vessel or lesion type - Problem List Review Problem List Initiated/Reviewed/Updated: Yes - Plan Plan:: Assessment/Plan: Acute: Multiple Intra-cranial Bleed - Embolic phenomenon vs Metastatic Disease (more likely); reviewed at length with family this morning. - Patient has chronic atrial fibrillation and no active neoplastic disease: lung and prostate cancer according to family - Family will let me know if they want to stop the blood thinner (lovenox)-- family still undecided today if they wish to stop blood thinner. Generalized Weakness with Recent Falls--weakness is worsening at this point - Likely 2/2 posterior brain bleed - Head CT scan: subdural hematoma overlying cerebellar tentorium, MRI with multiple areas of small subarachnoid hemorrhages--see report for further details. - He is on lovenox for stroke prophylaxis; eliquis was held - Continue PT/OT Old Abrasions from Previous Falls - Abnormal CT of brain without contrast (multiple intra-cranial bleed, predominately cortical); MRI multiple areas of small subarachnoid hemorrhages from repeated falls - Can not exclude metastatic disease; strongly suspected at this time Confusion/Encephalopathy, Unchanged - Likely 2/2 above - Continue routine neuro-check - He is alert and awake - Head CT scan if symptom worsens - REGIONAL MAINTENANCE MANAGER eval today with recommendations for NDD2 with nectar thick liquids today Prostate Cancer, unknown stage; has not started treatment yet per family Lung Cancer, unknown stage; recent steroid taper (prednisone 60--> 20 mg daily) , on radiotherapy A Fib on Lovenox for now, HR controlled History of CAD/DE with PCI; elevated TnI, type 2 DE--troponins trending down Chronic: HLD CVA, right sided weakness CKD, stage III History of C Diff Plan: He remains hemodynamically stable Routine AM labs Routine Neuro-checks DVT prophylaxis: on Lovenox- family decided to keep him on it; family continuing to discuss if wishes to cont with anticoag on discharge or not. Continue Fall/Aspiration Precautions REGIONAL MAINTENANCE MANAGER/Swallow Eval - recommendations as above Oncology as scheduled next week--ongoing discussions with family. Family has talked with Oncologist re: current state. Dr. Salmon did speak with PCP, Dr. Ho today re: patient status, family concerns, SNF discharge likely, possibility of comfort care. Additional orders as above Code status DNR/DNI LOS anticipate > 96 hrs pending SNF placement, likely DC to [facility] tomorrow.
[2016-12-09] MEDS ORDERED: Acetaminophen 325 MG Tab ONE (21:55)
[2016-12-09] MEDS ORDERED: Acetaminophen 325 MG Tab PO PRN (22:00)
[2016-12-10] MEDS ORDERED: Furosemide 20 MG/2 ML VIAL IVPUSH ONE (06:45)
--- NOTE | 2016-12-10 07:04 | PCM.SN ---
- Free Text/Narrative Note: Arrival for my shift at 0600, nursing informed me that patient had just had a fall, slipped or slid OOB onto left side. Daughter was in room with patient all night. Nursing reports patient denies pain or discomfort only stating he is "so embarassed". Daughter reports that she was sleeping, heard bed alarm and her father was sitting on floor on his left side/buttock. She reports did not hear "a thud or anything, I think he just slid out". He has tendency to lean to left side, nursing repositions quite frequently as he leans to left and to left side of bed. Nursing reports that they had repositioned him less than an hour prior to fall. He denies hitting head, daughter is unsure but states "I don't think he hit his head". Will order head CT without contrast, xray of left hip and pelvis to assure no acute changes/fractures. With assessment lungs also are with fine crackles to right base; CXR ordered as well.
[2016-12-10] MEDS: Megestrol Susp 40 MG/ML 10 ML UD Cup PO SCH (08:49)
[2016-12-10] MEDS: Tamsulosin 0.4 MG Cap.ER PO SCH (08:55)
[2016-12-10] MEDS: Potassium Chloride 20 MEQ Tab.ER PO SCH (08:55)
[2016-12-10] MEDS: Rosuvastatin 10 MG Tab PO SCH (08:55)
[2016-12-10] MEDS: Metoprolol Tartrate 25 MG Tab PO SCH (08:56)
[2016-12-10] MEDS: Diltiazem 120 MG Cap.CD PO SCH (09:00)
--- NOTE | 2016-12-10 09:00 | CR ---
Pelvis and left hip: AP view of the pelvis was obtained as well as AP and frog-leg lateral views of the left hip. Joint space narrowing is seen within the right hip. Joint space within the left hip is fairly well preserved. Degenerative change is partially seen within the spine. Bony structures are slightly osteopenic. No fracture or other bony abnormality is identified. Impression: 1. Osteopenia and degenerative change. 2. Nothing acute is identified on AP pelvis or on two-view left hip exam. Diagnostic code #2
--- NOTE | 2016-12-10 09:00 | CT ---
Head CT Technique: Multiple axial sections through the brain were obtained. Intravenous contrast was not utilized. Comparison: Previous head CT study of 12/03/16. Prior MRI exam of 12/04/16 is also available. Findings: Ventricles along with basal cisterns and sulci over the convexities are moderately prominent. Areas of previous hemorrhage show evidence of near complete resolution. No acute intracranial hemorrhage is seen. Diminished density is noted within the periventricular and subcortical white matter which is compatible with small vessel ischemic demyelination change. Bone window settings were reviewed which show the visualized sinuses to appear clear. No acute calvarial abnormality is seen. Impression: 1. Previous intracranial hemorrhage has almost completely resolved on current head CT study. 2. No acute intracranial abnormality is identified. 3. Stable senescent change is seen. Diagnostic code #2
--- NOTE | 2016-12-10 09:00 | CR ---
Chest: Frontal view of the chest was obtained. Comparison: Prior chest x-ray of 12/03/16. Heart size appears within normal limits for AP technique. Continued parenchymal density is noted within the right upper lung. Lungs otherwise are clear. Tortuous thoracic aorta is seen. Left-sided infusion port is seen. Bony structures are grossly intact. Impression: 1. Continuing increased density within the right upper lung without significant change from previous study. 2. Other incidental findings. Nothing acute is otherwise seen. Diagnostic code #3
[2016-12-10] MEDS: methylPREDNISolone Sodium Succinate 40 MG/1 ML SDV IVPUSH SCH (09:02)
[2016-12-10 09:09] VITALS: BP 123/94
[2016-12-10] MEDS: Pantoprazole 40 MG Tab.CR PO SCH (09:42)
--- NOTE | 2016-12-10 09:46 | PCM.DCSUM1 ---
Discharge Summary - Hospital Course Free Text/Narrative:: Matthew Rudd is an 81-year-old male admitted through the emergency room after EMS was summoned to his home by his . Patient had a fall at home and was unable to get up off of the floor. was unable to assist him so EMS was called and he was brought into the emergency room for further evaluation. He has had up to 5 falls at home in the 2 weeks prior to admission. His reports that he has slowly been declining with generalized weakness again recurrent falls as noted above decreased appetite and weight loss over the past few months. He has known history of lung cancer along with prostate cancer, currently being treated in [place] with oncology. Again, he sees an oncologist in [place] who is, according to patient's pleased with how his treatments are going. and family have been told per their report that cancer is now minimal. ER evaluation with CT scan of the brain did show multiple intracranial hemorrhages. 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 Chest x-ray reveals right- sided densities with questionable pneumonia versus lung mass. Hospitalist service is consulted for admission for intracranial bleed. Course of Hospital stay patient did undergo MRI of the brain which showed subarachnoid hemorrhages however question of inflammatory change radiologist states could not rule out meningeal tumor with hemorrhages. Physical and occupational therapy did work with patient during course of his stay. He also had speech-language pathology evaluation for swallowing. He was placed on national dysphagia diet level II with nectar thick liquids and did well with that. Neuro checks and exams were essentially unchanged during course of his stay. Dr. Salmon did have long conversation with family regarding course of treatment specifically with regards to continuing versus stopping anticoagulation. Initially in course of stay, family elected to continue anticoagulation to prevent further risk of CVA or extension of CVA with regards to history of paroxysmal atrial fibrillation and hx of CVA x2. It was discussed with family that continuing anticoagulation could in fact worsen intracranial hemorrhage. At that time family voiced understanding and wished to continue with anticoagulation. Social work and case management were extensively involved with this case with regards to discharge planning. Patient 's primary care provider Dr. Ho was contacted by Dr. Salmon for patient update during course of his stay. There is concern that hemorrhage may be related to metastatic disease. This concern was related to the family as well. Morning of discharge patient did have a fall/slid out of bed onto his left side, family was present in room during this time. X-rays were obtained of the left hip and pelvis which were unremarkable. It was unknown if patient struck his head during this incident so repeat CT scan of the brain was also obtained, per radiologist report states that previous intracranial hemorrhage is almost completely resolved. Reassured family with this information. They wish to continue with snf facility placement in hopes for rehabilitation to take patient home. Family is undecided if they will continue to pursue oncologic treatment and will base this on his progression or lack thereof post discharge. Dr. Rodriguez will be physician assuming care at the custodial. Again Dr. Ho is patient's primary care provider prior to this. Family has elected no anticoagulation upon discharge (family personally spoke with oncologist or someone with his office and also Dr. Ho and have elected to stop anticoagulation based on this information, again fully knowing risk of CVA vs bleeing) continue with physical occupational and speech therapy and will readdress anticoagulation at a later date. - Discharge Data Discharge Date: 12/10/16 (admit date 12/03/16) Discharge Disposition: DC/Tfer to SNF 03 Condition: Poor - Discharge Diagnosis/Problem(s) (1) Brain bleed SNOMED Code(s): 491523048 ICD Code: I61.9 - NONTRAUMATIC INTRACEREBRAL HEMORRHAGE, UNSPECIFIED Status : Acute Priority: High Current Visit: Yes (2) Carcinoma, lung SNOMED Code(s): 600839983 ICD Code: C34.90 - MALIGNANT NEOPLASM OF UNSP PART OF UNSP BRONCHUS OR LUNG Status: Chronic Priority: High Current Visit: Yes Qualifiers: Laterality: right Qualified Code(s): C34.91 - Malignant neoplasm of unspecified part of right bronchus or lung (3) Fall as cause of accidental injury at home as place of occurrence SNOMED Code(s): 18076727 ICD Code: W19.XXXA - UNSPECIFIED FALL, INITIAL ENCOUNTER; Y92.009 - UNSP PLACE [facility] Status: Acute Priority: High Current Visit: Yes Qualifiers: Encounter type: initial encounter Qualified Code(s): W19.XXXA - Unspecified fall, initial encounter; Y92.009 - Unspecified place in unspecified non-institutional (private) residence as the place of occurrence of the external cause; Y92.009 - Unspecified place in unspecified non-institutional ( private) residence as the place of occurrence of the external cause (4) Acute coronary syndrome SNOMED Code(s): 326235495 ICD Code: I24.9 - ACUTE ISCHEMIC HEART DISEASE, UNSPECIFIED Status: Resolved Priority: High Current Visit: Yes (5) Anemia SNOMED Code(s): 861265839 ICD Code: D64.9 - ANEMIA, UNSPECIFIED Status: Chronic Priority: Medium Current Visit: Yes Qualifiers: Anemia type: unspecified type Qualified Code(s): D64.9 - Anemia, unspecified (6) Atrial fibrillation SNOMED Code(s): 80685042 ICD Code: I48.91 - UNSPECIFIED ATRIAL FIBRILLATION Status: Chronic Priority: High Current Visit: Yes Qualifiers: Atrial fibrillation type: paroxysmal Qualified Code(s): I48.0 - Paroxysmal atrial fibrillation (7) CAD (coronary artery disease) SNOMED Code(s): 47481486 ICD Code: I25.10 - ATHSCL HEART DISEASE OF [place] CORONARY ARTERY W/O ANG PCTRS Status: Chronic Priority: Medium Current Visit: Yes Qualifiers: Coronary Disease-Associated Artery/Lesion type: unspecified vessel or lesion type - Patient Summary/Data Operative Procedure(s) Performed: None Complications: None Consults: Consultations 12/04/16 08:00 Consult to Occupational Therapy [OT Evaluation and Treatment] [CONS] Routine Consult to Physical Therapy [PT Evaluation and Treatment] [CONS] Routine Consult to Wildlife Forensic Geneticist [CONS] Routine 12/08/16 10:35 Consult to Speech Language Pathology [MAIL PROCESSING CLERK Evaluation and Treatment] [CONS] Routine Labs Pending at D/C: None Recommended Follow-up Testing/Procedures: Physical therapy, occupational therapy & speech to treat and evaluate Follow up with Oncology as scheduled (family is continuing to discuss if this is route they wish to pursue) Follow up with PCP- Dr. Rodriguez (who will assume care at [place] - Dr. Ho is PCP prior to SNF admission) within 1 week of discharge; recheck of labs, potassium at that time Diet: dysphagia level 2 with nectar thick liquids Planned Operative Procedure(s) after DC: None Hospital Course: as above - Patient Instructions Diet: Heart Healthy Diet, Usual Diet as Tolerated (NDD2 with nectar thick liquid ) Activity: As Tolerated (with assist; PT/OT to continue) Driving: Do Not Drive Showering/Bathing: May Shower Notify Provider of: Fever, Increased Pain, Nausea and/or Vomiting (headache, dizziness, vision change, other questions or concerns) - Discharge Plan Prescriptions/Med Rec: Potassium Chloride [Klor-Con M20] 40 meq PO DAILY #30 tab.er Home Medications: Home Meds Diltiazem [Cardizem CD] 120 mg PO DAILY 05/31/16 [History] Nitroglycerin [Nitrostat] 0.4 mg SL ASDIRECTED PRN 05/31/16 [History] Pantoprazole Sodium [Protonix] 40 mg PO DAILY 05/31/16 [History] Tamsulosin [Flomax] 0.4 mg PO BID 05/31/16 [History] Acetaminophen [Tylenol] 325 - 650 mg PO Q4HR PRN 08/20/16 [History] Albuterol Sulfate [Proair Respiclick] 1 puff INH Q4HR PRN 08/20/16 [History] Benzonatate [Tessalon Perle] 200 mg PO TID PRN 08/20/16 [History] Codeine/Promethazine [Phenergan with Codeine] 5 ml PO BEDTIME PRN 08/20/16 [ History] Metoprolol Tartrate [Lopressor] 37.5 mg PO BID 08/20/16 [History] Plant Stanol Zayra [Cholest Off] 2 tab PO BID 08/20/16 [History] Aspirin [Ecotrin] 81 mg PO DAILY 12/03/16 [History] Megestrol Acetate 400 mg PO DAILY 12/03/16 [History] Ondansetron [Zofran ODT] 4 mg PO Q4H PRN 12/03/16 [History] Prednisone [IJD: predniSONE] 60 mg PO DAILY 12/03/16 [History] Rosuvastatin Calcium [Crestor] 20 mg PO DAILY 12/03/16 [History] Potassium Chloride [Klor-Con M20] 40 meq PO DAILY #30 tab.er 12/09/16 [Rx] Patient Handouts: Anemia, Nonspecific, Subarachnoid Hemorrhage, Hypokalemia, Lung Cancer Forms: ED Department Discharge Referrals: Edgar Rodriguez MD [Physician] - - Discharge Summary/Plan Comment DC Time >30 min.: Yes (45 min) - General Info Date of Service: 12/10/16 Admission Dx/Problem (Free Text: Admission Diagnosis/Problem Admission Diagnosis/Problem Fall as cause of accidental injury in home as place of occurrence Functional Status: Reports: Pain Controlled, Tolerating Diet, Ambulating ( assist of 2 and walker), Urinating - Review of Systems General: Reports: Weakness. Denies: Fever HEENT: Denies: Headaches (denies) Pulmonary: Reports: No Symptoms. Denies: Shortness of Breath (denies) Cardiovascular: Reports: No Symptoms. Denies: Chest Pain (denies) Gastrointestinal: Reports: No Symptoms. Denies: Abdominal Pain (denies) Musculoskeletal: Reports: No Symptoms (denies any hip/pelvis/back pain s/p fall ) Neurological: Reports: Confusion (to place), Difficulty Walking, Weakness. Denies: Headache - Patient Data Vitals - Most Recent: Last Vital Signs Temp 98.4 F 12/10/16 07:41 Pulse 76 12/10/16 09:00 Resp 20 12/10/16 07:41 BP 123/94 H 12/10/16 09:00 Pulse Ox 92 L 12/10/16 07:41 Weight - Most Recent: 143 lb I&O - Last 24 hours: Intake & Output 12/09/16 12/10/16 12/10/16 22:59 06:59 14:59 Intake Total 1074 748 Output Total 450 Balance 624 748 Lab Results - Last 24 hrs: Laboratory Results - last 24 hr 12/10/16 Range/Units 06:55 Sodium 143 (136-145) mEq/L Potassium 4.2 (3.5-5.1) mEq/L Chloride 110 H (98-107) mEq/L Carbon Dioxide 22 (21-32) mEq/L Anion Gap 15.2 H (5-15) BUN 41 H (7-18) mg/dL Creatinine 1.6 H (0.7-1.3) mg/dL Est Cr Clr Drug Dosing 33.78 mL/min Estimated GFR (MDRD) 42 (>60) mL/min BUN/Creatinine Ratio 25.6 H (14-18) Glucose 121 H (83-115) mg/dL Calcium 8.8 (8.5-10.1) mg/dL Med Orders - Current: Current Medications Acetaminophen (Tylenol) 650 mg PO Q4H PRN PRN Reason: Pain/Fever Last Admin: 12/09/16 22:00 Dose: 650 mg Benzonatate (Tessalon Perles) 200 mg PO TID PRN PRN Reason: Cough Last Admin: 12/07/16 09:05 Dose: 200 mg Diltiazem HCl (Cardizem Cd) 120 mg PO DAILY ON LICENSE OF [facility] Last Admin: 12/10/16 09:00 Dose: 120 mg Hydralazine HCl (Apresoline) 10 mg IVPUSH Q4H PRN PRN Reason: Hypertension Lorazepam (Ativan) 2 mg IVPUSH Q4H PRN PRN Reason: Seizures Megestrol Acetate (Megace 40 Mg/Ml Susp) 400 mg PO DAILY ON LICENSE OF [facility] Last Admin: 12/10/16 08:49 Dose: 400 mg Methylprednisolone Sodium Succinate (Solu-Medrol) 40 mg IVPUSH Q12H ON LICENSE OF [facility] Last Admin: 12/10/16 09:02 Dose: 40 mg Metoprolol Tartrate (Lopressor) 37.5 mg PO BID ON LICENSE OF [facility] Last Admin: 12/10/16 08:56 Dose: 37.5 mg Metoprolol Tartrate (Lopressor) 5 mg IVPUSH Q4H PRN PRN Reason: Tachycardia Nitroglycerin (Nitrostat) 0.4 mg SL SEECOMMENT PRN PRN Reason: Chest Pain Ondansetron HCl (Zofran Odt) 4 mg PO Q4H PRN PRN Reason: Nausea Pantoprazole Sodium (Protonix) 40 mg PO DAILY ON LICENSE OF [facility] Last Admin: 12/10/16 09:42 Dose: 40 mg Potassium Chloride (Klor-Con M20) 40 meq PO DAILY ON LICENSE OF [facility] Last Admin: 12/10/16 08:55 Dose: 40 meq Promethazine HCl/Codeine (Phenergan With Codeine) 5 ml PO BEDTIME PRN PRN Reason: Cough Rosuvastatin Calcium (Crestor) 20 mg PO DAILY ON LICENSE OF [facility] Last Admin: 12/10/16 08:55 Dose: 20 mg Tamsulosin HCl (Flomax) 0.4 mg PO BID ON LICENSE OF [facility] Last Admin: 12/10/16 08:55 Dose: 0.4 mg Discontinued Medications Acetaminophen (Tylenol) Confirm Administered Dose 650 mg .ROUTE .K-MED ONE Stop: 12/09/16 21:56 Last Admin: 12/09/16 22:29 Dose: Not Given Aspirin (Halfprin) 81 mg PO DAILY ON LICENSE OF [facility] Enoxaparin Sodium (Lovenox) 40 mg SUBCUT DAILY ON LICENSE OF [facility] Last Admin: 12/09/16 08:27 Dose: 40 mg Furosemide (Lasix) 10 mg IVPUSH NOW ONE Stop: 12/10/16 06:46 Last Admin: 12/10/16 08:49 Dose: 10 mg Gadobenate Dimeglumine (Multihance) 15 ml IVPUSH ONETIME ONE Stop: 12/04/16 09:49 Last Admin: 12/04/16 10:31 Dose: 15 ml Dextrose/Sodium Chloride (Dextrose 5%-Normal Saline) 1,000 mls @ 150 mls/hr IV ASDIRECTED ON LICENSE OF [facility] Last Admin: 12/03/16 11:16 Dose: 150 mls/hr Magnesium Sulfate 2 gm/ Premix 50 mls @ 25 mls/hr IV ONETIME ONE Stop: 12/03/16 21:47 Last Admin: 12/03/16 20:19 Dose: 25 mls/hr Potassium Chloride/Sodium Chloride (1/2 Ns With 20 Meq Kcl) 1,000 mls @ 125 mls /hr IV ASDIRECTED ON LICENSE OF [facility] Stop: 12/05/16 00:30 Last Admin: 12/04/16 15:08 Dose: 125 mls/hr Dextrose/Sodium Chloride (Dextrose 5%-Normal Saline) 1,000 mls @ 150 mls/hr IV ASDIRECTED ON LICENSE OF [facility] Stop: 12/03/16 23:00 Last Admin: 12/03/16 20:37 Dose: 150 mls/hr Sodium Chloride (Sodium Chloride 0.45%) 1,000 mls @ 75 mls/hr IV ASDIRECTED ON LICENSE OF [facility] Stop: 12/05/16 00:30 Dextrose/Sodium Chloride (Dextrose 5%-1/2 Ns) 1,000 mls @ 50 mls/hr IV ASDIRECTED ON LICENSE OF [facility] Last Admin: 12/09/16 08:50 Dose: 50 mls/hr Lorazepam (Ativan) 1 mg IVPUSH ONETIME ONE Stop: 12/04/16 20:05 Last Admin: 12/04/16 21:02 Dose: 1 mg Magnesium Hydroxide (Milk Of Magnesia) 30 ml PO ONETIME ONE Stop: 12/05/16 16:50 Last Admin: 12/05/16 17:04 Dose: 30 ml Potassium Chloride (Potassium Chloride) 40 meq PO DAILY JERRY Sodium Chloride (Saline Flush) 10 ml FLUSH ONETIME PRN PRN Reason: CHECK IV Stop: 12/04/16 12:00 Last Admin: 12/04/16 10:31 Dose: 10 ml - Exam Quality Assessment: Reports: DVT Prophylaxis General: Reports: Alert, Cooperative, No Acute Distress HEENT: Reports: Pupils Equal, EOMI, Mucous Membr. Moist/[place] Neck: Reports: Supple Lungs: Reports: Normal Respiratory Effort, Decreased Breath Sounds (bases), Crackles (right base on morning of discharge- CXR obtained and unremarkable) GI/Abdominal Exam: Normal Bowel Sounds, Soft (Male) Exam: Deferred Rectal (Males) Exam: Deferred Extremities: Normal Inspection, No Pedal Edema, Normal Capillary Refill Psy/Mental Status: Reports: Alert *Q Meaningful Use (DIS) - VTE *Q VTE Criteria *Q: - Stroke *Q Stroke Criteria *Q: - AMI *Q AMI Criteria *Q:
== END 2016-12-10 10:00 | DRG 85 ==
LOC: JD.ED 10:32 → SUPCPDRO 10:32 → JD.MS 14:59
PROVIDERS: ADMIT Internal Medicine Cardiovascular Disease; ATTEND Internal Medicine Cardiovascular Disease
DX: S06.6X0A Traumatic subarachnoid hemorrhage without loss of consciousness, initial encounter (principal); I21.4 Non-ST elevation (NSTEMI) myocardial infarction; S06.2X9A Diffuse traumatic brain injury with loss of consciousness of unspecified duration, initial encounter; C34.91 Malignant neoplasm of unspecified part of right bronchus or lung; W19.XXXA Unspecified fall, initial encounter; I69.351 Hemiplegia and hemiparesis following cerebral infarction affecting right dominant side; D32.9 Benign neoplasm of meninges, unspecified; W18.30XA Fall on same level, unspecified, initial encounter; Z91.81 History of falling; Y92.009 Unspecified place in unspecified non-institutional (private) residence as the place of occurrence of the external cause; N18.9 Chronic kidney disease, unspecified; R53.1 Weakness; I25.2 Old myocardial infarction; E78.00 Pure hypercholesterolemia, unspecified; I48.91 Unspecified atrial fibrillation; C61 Malignant neoplasm of prostate; K21.9 Gastro-esophageal reflux disease without esophagitis; N40.0 Benign prostatic hyperplasia without lower urinary tract symptoms; G89.29 Other chronic pain; M54.9 Dorsalgia, unspecified; M19.90 Unspecified osteoarthritis, unspecified site; Z86.73 Personal history of transient ischemic attack (TIA), and cerebral infarction without residual deficits; H54.7 Unspecified visual loss; Z79.82 Long term (current) use of aspirin; Z79.52 Long term (current) use of systemic steroids; Z79.899 Other long term (current) drug therapy; I48.0 Paroxysmal atrial fibrillation; Z79.01 Long term (current) use of anticoagulants; I25.10 Atherosclerotic heart disease of native coronary artery without angina pectoris; I12.9 Hypertensive chronic kidney disease with stage 1 through stage 4 chronic kidney disease, or unspecified chronic kidney disease; N18.3 Chronic kidney disease, stage 3 (moderate); Z87.891 Personal history of nicotine dependence; Z95.5 Presence of coronary angioplasty implant and graft; E78.5 Hyperlipidemia, unspecified; H54.3 Unqualified visual loss, both eyes; D64.9 Anemia, unspecified; Z66 Do not resuscitate; W06.XXXA Fall from bed, initial encounter; Y92.230 Patient room in hospital as the place of occurrence of the external cause; R13.10 Dysphagia, unspecified; R06.02 Shortness of breath
CPT/HCPCS: 71010; 70450; 96360; 96361; 99285; 93005; 85025; 85652; 36415; 80053; 83735; 82550; 82553; 84484; 83880; 86140; 84443; 87205; 87070; 87040 ×2; J7042; 70553; 70553-26; 73502-26-LT; 73502-LT; 80048; 80061; 81001; 86738; 87486; 87581; 87633; 87798; 87899; 92610-GN; 93010; 97110-GO; 97110-GP; 97116-GP; 97162-GP; 97166-GO; 97530-GO; 97530-GP; 97535-GO; A9270-GY; A9577; J1650; J2060; J2920; J3475; J3480; J7050